=== PATIENT | male | born 1950 | race Caucasian/White ===

== ENCOUNTER 2021-04-09 10:12 | Inpatient (IN) | payer OTHER ==
[~2021-04-09] VITALS: Ht 175.3 cm; Wt 82.2 kg
[2021-04-09] MEDS ORDERED: NITROGLYCERIN 0.4 MG SL TAB SL ONE (11:00)
[2021-04-09] MEDS ORDERED: ASPirin 81 mg TAB PO ONE (11:00)
[2021-04-09] MEDS ORDERED: amLODIPine BESYLATE 5 MG TAB PO ONE (11:00)
[2021-04-09 11:14] LABS: Eosinophils # (auto) 0.2 10 ^3/uL (0-0.8); Monocytes # (auto) 0.7 10 ^3/uL (0-1.3); Neutrophils # (auto) 6.2 10 ^3/uL (1.6-8.6); White Blood Cell 8.4 10^3/uL (4.4-10.8)
[2021-04-09 11:16] LABS: Basophils # (auto) 0 10 ^3/uL (0-0.2); Basophils % (auto) 0.5 % (0.0-2.0); Eosinophils % (auto) 2.1 % (0.0-7.0); Hematocrit 55.4 % (41.0-53.0); Hemoglobin 18.6 g/dL (13.5-17.5); Lymphocytes # (auto) 1.3 10 ^3/uL (0.4-5.4); Lymphocytes % (auto) 14.9 % (10.0-50.0); Mean Corpuscular Hgb Conc. 33.6 g/dL (32.0-36.0); Mean Corpuscular Volume 95.1 fL (80.0-100.0); Monocytes % (auto) 8.6 % (0.0-12.0); Neutrophils % (auto) 73.9 % (37.0-80.0); Nucleated Red Blood Cells % 0.2 %; Platelet Count (auto) 179 10^3/uL (140-450); Red Blood Cells 5.82 10^6/uL (4.5-5.90); Red Cell Distribution Width 13.8 % (11.8-14.3)
[2021-04-09 11:28] LABS: Anion Gap 5 (5-15); Blood Urea Nitrogen 23 mg/dL (7-18); Calcium 8.8 mg/dL (8.5-10.1); Carbon Dioxide 24 mmol/L (21-32); Chloride 111 mmol/L (98-107); Glucose 98 mg/dL (74-106); Potassium 4.1 mmol/L (3.5-5.1); Sodium 140 mmol/L (136-145)
[2021-04-09 11:35] LABS: Alanine Aminotransferase 18 U/L (16-61); Alkaline Phosphatase 80 U/L (45-117); Aspartate Aminotransferase 20 U/L (15-37); BUN/Creatinine Ratio 20.2; Bilirubin, Total 0.6 mg/dL (0.2-1.0); GFR African American 81 mL/min; GFR Non-African American 67 mL/min; Total Protein 8.3 g/dL (6.4-8.2)
[2021-04-09 11:44] LABS: INR 1.19 (0.9-1.15)
[2021-04-09 15:00] LABS: Urine Bacteria NONE SEEN /hpf (None Seen); Urine Blood Negative /uL (Negative); Urine Specific Gravity 1.023 (1.001-1.035); Urine WBC <1 /hpf (0 - 3)
[2021-04-09] MEDS ORDERED: MORPHINE SULF INJ 2 MG/ML SYRINGE 1ML IV PRN ×2 (15:30)
[2021-04-09] MEDS ORDERED: ACETAMINOPHEN 500 MG TAB PO PRN (15:30)
[2021-04-09] MEDS ORDERED: LACTULOSE 20Gm/30ML SOLN PO PRN ×2 (15:30)
[2021-04-09] MEDS ORDERED: traMADol HCL 50 MG TAB PO PRN (15:30)
[2021-04-09] MEDS ORDERED: PROMETHAZINE HCL 25 MG/ML 1ML IV PRN (15:30)
[2021-04-09] MEDS ORDERED: NITROGLYCERIN 0.4 MG SL TAB SL PRN (15:30)
[2021-04-09] MEDS: SODIUM CHLORIDE 0.9% 1,000 ML IV SCH (15:38)
[2021-04-09 16:39] LABS: Alcohol, Urine < 3.0 mg/dL (0-10); Amphetamine Screen, Urine NEGATIVE (NEGATIVE); Barbiturate Scree,Urine NEGATIVE (NEGATIVE); Benzodiazephine Screen, Urine NEGATIVE (NEGATIVE); Cannabinoid Screen, Urine NEGATIVE (NEGATIVE); Cocaine Screen, Urine NEGATIVE (NEGATIVE); Opiate Scree,Urine NEGATIVE (NEGATIVE); Phencyclidine Screen, Urine NEGATIVE (NEGATIVE)
[2021-04-09 17:48] LABS: CRP High Sensitivity 0.08 mg/dL (< 0.3)
[2021-04-09 20:19] VITALS: BP 125/72
[2021-04-09 22:00] VITALS: BP 125/72
[2021-04-09] MEDS: METOPROLOL TARTRATE 25 MG TAB PO SCH ×2 (22:00→22:41)
[2021-04-09] MEDS: ATORVASTATIN 20 MG TAB PO SCH ×2 (22:00→22:41)
[2021-04-09] MEDS ORDERED: THROAT LOZENGES(CEPASTAT) MT PRN (22:30)
[2021-04-09] MEDS ORDERED: METO25TA93 PO (22:39)
[2021-04-09] MEDS ORDERED: NITR0.4S29 SL (22:39)
[2021-04-09] MEDS ORDERED: PRAV20TA3 PO (22:39)
[2021-04-09] MEDS ORDERED: ARTISOL13 EACHEYE (22:39)
[2021-04-09] MEDS ORDERED: FAMO20TA10 PO (22:39)
[2021-04-09] MEDS ORDERED: ACYC-161 PO (22:39)
[2021-04-09] MEDS ORDERED: DICY10CA PO (22:39)
[2021-04-09] MEDS ORDERED: PANT40TA2 PO (22:39)
[2021-04-09] MEDS ORDERED: FAMOTIDINE 20 MG TAB PO ONE (22:45)
[2021-04-10] MEDS: SODIUM CHLORIDE 0.9% 1,000 ML IV SCH (04:50)
[2021-04-10 05:00] VITALS: BP 121/74
[2021-04-10 07:06] LABS: Cholesterol 164 mg/dL (< 200)
[2021-04-10 07:10] LABS: HDL Cholesterol 38 mg/dL (40-59); LDL Cholesterol 108 mg/dL (< 100); Triglycerides 115 mg/dL (< 150)
[2021-04-10 08:00] VITALS: BP 105/69
[2021-04-10 08:15] VITALS: BP 105/69
[2021-04-10] MEDS ORDERED: PANTOPRAZOLE 40 MG TAB PO SCH (10:00)
[2021-04-10] MEDS ORDERED: NITROGLYCERIN 0.2MG/HR TOPICAL PATCH TD SCH (10:00)
[2021-04-10] MEDS ORDERED: ENOXAPARIN SOD 40 MG/0.4 ML SYRINGE SC SCH (10:00)
[2021-04-10] MEDS ORDERED: ASPirin 81 mg TAB PO SCH (10:00)
[2021-04-10] MEDS: METOPROLOL TARTRATE 25 MG TAB PO SCH (10:12)
[2021-04-10 16:59] VITALS: BP 135/74
[2021-04-10 17:00] VITALS: BP 136/72
[2021-04-10] MEDS ORDERED: FAMOTIDINE 20 MG TAB PO SCH (22:00)
== END 2021-04-10 17:40 | disposition home health service (06) | DRG 313 ==
LOC: ER 10:12 → TELE 15:23 → TELE-CENTR 20:16
PROVIDERS: ADMIT Internal Medicine; ATTEND Internal Medicine
DX: R07.89 Other chest pain (principal); K21.9 Gastro-esophageal reflux disease without esophagitis; I45.10 Unspecified right bundle-branch block; Z95.1 Presence of aortocoronary bypass graft; I25.10 Atherosclerotic heart disease of native coronary artery without angina pectoris; F43.10 Post-traumatic stress disorder, unspecified; K58.9 Irritable bowel syndrome, unspecified; Z20.822 Contact with and (suspected) exposure to COVID-19; I10 Essential (primary) hypertension; Z82.49 Family history of ischemic heart disease and other diseases of the circulatory system; Z87.891 Personal history of nicotine dependence; Z98.61 Coronary angioplasty status; B19.20 Unspecified viral hepatitis C without hepatic coma
CPT/HCPCS: 36415; 71045; 80053; 80061; 80307; 81001; 82550; 83880; 84484; 85025; 85379; 85610; 85652; 85730; 86141; 87426; 93005; 96360; G0378

== ENCOUNTER 2021-07-29 16:48 | Emergency (ER) | payer OTHER ==
[~2021-07-29] VITALS: Ht 175.3 cm; Wt 83.9 kg
[~2021-07-29 16:48] MED LIST: ACYC-161 PO; ARTISOL13 EACHEYE; DICY10CA PO; FAMO20TA10 PO; METO25TA93 PO; NITR0.4S29 SL; PANT40TA2 PO; PRAV20TA3 PO
[2021-07-29 18:25] LABS: Basophils # (auto) 0.1 10 ^3/uL (0-0.2); Basophils % (auto) 0.7 % (0.0-2.0); Eosinophils # (auto) 0.2 10 ^3/uL (0-0.8); Hematocrit 52.4 % (41.0-53.0); Hemoglobin 17.7 g/dL (13.5-17.5); Lymphocytes # (auto) 1.6 10 ^3/uL (0.4-5.4); Mean Corpuscular Hgb Conc. 33.8 g/dL (32.0-36.0); Neutrophils # (auto) 6.1 10 ^3/uL (1.6-8.6); Red Cell Distribution Width 13.9 % (11.8-14.3)
[2021-07-29 18:27] LABS: Eosinophils % (auto) 2.1 % (0.0-7.0); Lymphocytes % (auto) 18.2 % (10.0-50.0); Mean Corpuscular Hemoglobin 32.3 pg (28.0-32.0); Mean Corpuscular Volume 95.4 fL (80.0-100.0); Monocytes # (auto) 0.9 10 ^3/uL (0-1.3); Monocytes % (auto) 10.5 % (0.0-12.0); Neutrophils % (auto) 68.5 % (37.0-80.0); Nucleated Red Blood Cells % 0.2 %; Red Blood Cells 5.49 10^6/uL (4.5-5.90); White Blood Cell 8.9 10^3/uL (4.4-10.8)
[2021-07-29 18:45] LABS: Albumin 3.8 g/dL (3.4-5.0); Anion Gap 3 (5-15); Blood Urea Nitrogen 26 mg/dL (7-18); Calcium 8.7 mg/dL (8.5-10.1); Carbon Dioxide 26 mmol/L (21-32); Chloride 113 mmol/L (98-107); Glucose 97 mg/dL (74-106); Magnesium 2.7 mg/dL (1.6-2.6); Potassium 4.6 mmol/L (3.5-5.1); Sodium 142 mmol/L (136-145)
[2021-07-29 18:51] LABS: Alanine Aminotransferase 20 U/L (16-61); Alkaline Phosphatase 87 U/L (45-117); Aspartate Aminotransferase 18 U/L (15-37); BUN/Creatinine Ratio 21.5; Bilirubin, Total 0.2 mg/dL (0.2-1.0); GFR African American 76 mL/min; GFR Non-African American 63 mL/min; Total Protein 8.1 g/dL (6.4-8.2)
[2021-07-29 22:40] VITALS: BP 170/93
== END 2021-07-29 22:37 | disposition home or self-care (01) ==
LOC: ER 16:48
DX: H81.10 Benign paroxysmal vertigo, unspecified ear (principal); I10 Essential (primary) hypertension; E78.5 Hyperlipidemia, unspecified; Z95.1 Presence of aortocoronary bypass graft; Z98.61 Coronary angioplasty status
CPT/HCPCS: 36415; 70450; 80053; 83735; 84484; 85025; 93005

== ENCOUNTER → 2021-09-05 | Outpatient (CLI) | payer OTHER, MEDICARE | END | disposition home or self-care (01) | LOC: LAB 10:51 | PROVIDERS: ATTEND Internal Medicine | DX: I10 Essential (primary) hypertension (principal); E78.5 Hyperlipidemia, unspecified | CPT/HCPCS: 82270 ==

== ENCOUNTER 2021-09-15 19:02 | Emergency (ER) | payer MEDICARE, OTHER ==
[~2021-09-15] VITALS: Ht 175.3 cm; Wt 83.0 kg
[2021-09-15 21:08] VITALS: BP 108/62
[2021-09-15] MEDS ORDERED: NEOMYCIN-BACITRACIN-POLYM UNITDOSE PKG TOP OINT TOP ONE (21:15)
[2021-09-15] MEDS ORDERED: LIDOCAINE 1% HCL (LOCAL ANESTH.) INJ 20ML MDV ID ONE (21:15)
[2021-09-15] MEDS ORDERED: cefTRIAXone SOD 1,000 MG VL IM ONE (21:45)
[2021-09-15] MEDS ORDERED: TETANUS-DIPTH-ACEL PERTUSSIS 0.5ML SYR Tdap IM ONE (22:00)
== END 2021-09-15 22:04 | disposition home or self-care (01) ==
LOC: ER 19:02
DX: S61.215A Laceration without foreign body of left ring finger without damage to nail, initial encounter (principal); I10 Essential (primary) hypertension; E78.5 Hyperlipidemia, unspecified; Z95.1 Presence of aortocoronary bypass graft; Z98.61 Coronary angioplasty status; W26.9XXA Contact with unspecified sharp object(s), initial encounter; Y93.89 Activity, other specified; Y92.89 Other specified places as the place of occurrence of the external cause; Y99.8 Other external cause status
CPT/HCPCS: 12001; 73140; 90471; 90715; 96372; 99284; J0696; J2001

== ENCOUNTER 2021-10-30 18:40 | Inpatient (IN) | payer OTHER ==
[~2021-10-30] VITALS: Ht 175.3 cm; Wt 83.0 kg
[2021-10-30 21:24] LABS: Albumin 3.7 g/dL (3.4-5.0); Calcium 8.4 mg/dL (8.5-10.1); Potassium 4.2 mmol/L (3.5-5.1)
[2021-10-30 21:27] LABS: Basophils # (auto) 0 10 ^3/uL (0-0.2); Basophils % (auto) 0.3 % (0.0-2.0); Eosinophils # (auto) 0.2 10 ^3/uL (0-0.8); Hemoglobin 17.7 g/dL (13.5-17.5); Neutrophils # (auto) 7.7 10 ^3/uL (1.6-8.6); White Blood Cell 10.7 10^3/uL (4.4-10.8)
[2021-10-30 21:28] LABS: Eosinophils % (auto) 1.7 % (0.0-7.0); Hematocrit 52.5 % (41.0-53.0); Lymphocytes # (auto) 1.6 10 ^3/uL (0.4-5.4); Lymphocytes % (auto) 15.3 % (10.0-50.0); Mean Corpuscular Hemoglobin 31.6 pg (28.0-32.0); Mean Corpuscular Hgb Conc. 33.8 g/dL (32.0-36.0); Mean Corpuscular Volume 93.7 fL (80.0-100.0); Monocytes # (auto) 1.1 10 ^3/uL (0-1.3); Monocytes % (auto) 10.2 % (0.0-12.0); Neutrophils % (auto) 72.5 % (37.0-80.0); Nucleated Red Blood Cells % 0.1 %; Red Cell Distribution Width 14.1 % (11.8-14.3)
[2021-10-30 21:36] LABS: BUN/Creatinine Ratio 22.6; Bilirubin, Total 0.4 mg/dL (0.2-1.0); Total Protein 8.4 g/dL (6.4-8.2)
[2021-10-30] MEDS ORDERED: ASPirin 81 mg TAB PO ONE (21:45)
[2021-10-30] MEDS ORDERED: NITROGLYCERIN 0.2MG/HR TOPICAL PATCH TD ONE (21:45)
[2021-10-31 01:24] LABS: INR 1.02 (0.9-1.15); Partial Thromboplastin Time 29.1 sec (23.6-33.0)
[2021-10-31] MEDS ORDERED: NITROGLYCERIN 0.4 MG SL TAB SL PRN (02:45)
[2021-10-31] MEDS ORDERED: MORPHINE SULFATE INJECTION 2 MG/ML SYRG IV PRN (02:45)
[2021-10-31] MEDS ORDERED: ONDANSETRON HCL 4 MG/2 ML VIAL IV PRN (02:45)
[2021-10-31] MEDS ORDERED: ACETAMINOPHEN 325 MG TAB PO PRN (02:45)
[2021-10-31 09:10] VITALS: BP 130/86
[2021-10-31 09:28] VITALS: BP 130/86
[2021-10-31] MEDS: METOPROLOL SUCCINATE XL 50 MG TAB PO SCH (09:51)
[2021-10-31] MEDS: ASPirin 81 mg TAB PO SCH (09:51)
[2021-10-31] MEDS: ENOXAPARIN SOD 40 MG/0.4 ML SYRINGE SC SCH (09:51)
[2021-10-31] MEDS: PANTOPRAZOLE 40 MG TAB PO SCH (09:51)
[2021-10-31] MEDS ORDERED: AMLO-489 PO (11:38)
[2021-10-31] MEDS ORDERED: BENA10TA15 PO (11:38)
[2021-10-31 13:07] VITALS: BP 125/96
[2021-10-31 16:39] VITALS: BP 119/82
[2021-10-31] MEDS: ATORVASTATIN 20 MG TAB PO SCH (21:05)
[2021-10-31] MEDS: TEMAZEPAM 15 MG CAP PO PRN (21:41)
[2021-10-31 22:00] VITALS: BP 102/67
[2021-11-01 05:00] VITALS: BP 118/76
[2021-11-01 06:08] LABS: Basophils # (auto) 0 10 ^3/uL (0-0.2); Basophils % (auto) 0.4 % (0.0-2.0); Eosinophils # (auto) 0.2 10 ^3/uL (0-0.8); Eosinophils % (auto) 2.8 % (0.0-7.0); Lymphocytes # (auto) 1.7 10 ^3/uL (0.4-5.4); Lymphocytes % (auto) 21.3 % (10.0-50.0); Mean Corpuscular Hemoglobin 32.2 pg (28.0-32.0); Mean Corpuscular Hgb Conc. 33.9 g/dL (32.0-36.0); Monocytes # (auto) 0.8 10 ^3/uL (0-1.3); Monocytes % (auto) 10.7 % (0.0-12.0); Neutrophils # (auto) 5.1 10 ^3/uL (1.6-8.6); Neutrophils % (auto) 64.8 % (37.0-80.0); Nucleated Red Blood Cells % 0.1 %; Red Blood Cells 5.26 10^6/uL (4.5-5.90); Red Cell Distribution Width 14.4 % (11.8-14.3); White Blood Cell 7.9 10^3/uL (4.4-10.8)
[2021-11-01 06:21] LABS: Calcium 8.6 mg/dL (8.5-10.1); Potassium 4.5 mmol/L (3.5-5.1)
[2021-11-01 06:22] LABS: BUN/Creatinine Ratio 23.3
[2021-11-01 06:33] LABS: INR 1.05 (0.9-1.15); Partial Thromboplastin Time 28.5 sec (23.6-33.0)
[2021-11-01 07:08] LABS: Urine Bacteria NONE SEEN /hpf (None Seen); Urine Blood Negative /uL (Negative); Urine Specific Gravity 1.024 (1.001-1.035); Urine WBC <1 /hpf (0 - 3)
[2021-11-01 09:21] VITALS: BP 113/75
[2021-11-01] MEDS: METOPROLOL SUCCINATE XL 50 MG TAB PO SCH (10:00)
[2021-11-01] MEDS: ENOXAPARIN SOD 40 MG/0.4 ML SYRINGE SC SCH (10:00)
[2021-11-01] MEDS: ASPirin 81 mg TAB PO SCH (10:00)
[2021-11-01] MEDS: PANTOPRAZOLE 40 MG TAB PO SCH (10:00)
[2021-11-01 13:30] VITALS: BP 131/77
[2021-11-01] MEDS ORDERED: LIDOCAINE 2%HCL (LOCAL ANESTH.) INJ 20ML MDV ONE (14:37)
[2021-11-01] MEDS ORDERED: IODIXANOL 320MG/ML 100ML BTL IV ONE ×2 (14:37→15:52)
[2021-11-01] MEDS ORDERED: HEPARIN SODIUM (PORCINE) 5000 UNITS/ML 1ML VIAL ONE (14:55)
[2021-11-01] MEDS ORDERED: ANGIOMAX 250 MG VIAL IV ONE (14:55)
[2021-11-01] MEDS ORDERED: VERAPAMIL 2.5MG/ML INJ 2ML VIAL IV ONE (14:55)
[2021-11-01] MEDS ORDERED: SODIUM CHL 0.9% 0 ML ONE (14:56)
[2021-11-01] MEDS ORDERED: fentaNYL CITRATE 100 MCG/2 ML VL ONE (14:56)
[2021-11-01] MEDS ORDERED: MIDAZOLAM HCL 2MG/2ML 2ml VIAL (1mg/ml) ONE (14:56)
[2021-11-01] MEDS: TEMAZEPAM 15 MG CAP PO PRN (21:28)
[2021-11-01] MEDS: ATORVASTATIN 20 MG TAB PO SCH (21:28)
[2021-11-01] MEDS: SODIUM CHLOR 0.9% PF (SALINE LOCK) 10ML VIAL/SYR IV SCH (21:29)
[2021-11-01 22:00] VITALS: BP 145/81
[2021-11-02 05:00] VITALS: BP 123/84
[2021-11-02 09:28] VITALS: BP 114/68
[2021-11-02] MEDS: PANTOPRAZOLE 40 MG TAB PO SCH (10:07)
[2021-11-02] MEDS: ENOXAPARIN SOD 40 MG/0.4 ML SYRINGE SC SCH (10:07)
[2021-11-02] MEDS: METOPROLOL SUCCINATE XL 50 MG TAB PO SCH (10:07)
[2021-11-02] MEDS: SODIUM CHLOR 0.9% PF (SALINE LOCK) 10ML VIAL/SYR IV SCH ×2 (10:07→16:11)
[2021-11-02] MEDS: ASPirin 81 mg TAB PO SCH (10:07)
[2021-11-02] MEDS ORDERED: RANO500T2 PO (11:50)
[2021-11-02] MEDS ORDERED: METO-6 PO (11:50)
[2021-11-02 12:35] VITALS: BP 126/81
[2021-11-02 18:21] VITALS: BP 126/81
== END 2021-11-02 20:21 | disposition home or self-care (01) | DRG 287 ==
LOC: ER 18:46 → TELE 10-31 02:36 → TELE-CENTR 10-31 09:09
PROVIDERS: ADMIT Nurse Practitioner; ATTEND Internal Medicine
PROC: 4A023N7 Measurement of Cardiac Sampling and Pressure, Left Heart, Percutaneous Approach (ICD-10-PCS; principal; 2021-11-01)
PROC: B2181ZZ Fluoroscopy of Left Internal Mammary Bypass Graft using Low Osmolar Contrast (ICD-10-PCS; 2021-11-01)
PROC: B2151ZZ Fluoroscopy of Left Heart using Low Osmolar Contrast (ICD-10-PCS; 2021-11-01)
PROC: B2111ZZ Fluoroscopy of Multiple Coronary Arteries using Low Osmolar Contrast (ICD-10-PCS; 2021-11-01)
PROC: 4A033BC Measurement of Arterial Pressure, Coronary, Percutaneous Approach (ICD-10-PCS; 2021-11-01)
PROC: B2131ZZ Fluoroscopy of Multiple Coronary Artery Bypass Grafts using Low Osmolar Contrast (ICD-10-PCS; 2021-11-01)
DX: I25.110 Atherosclerotic heart disease of native coronary artery with unstable angina pectoris (principal); I24.9 Acute ischemic heart disease, unspecified; J98.11 Atelectasis; I10 Essential (primary) hypertension; E78.5 Hyperlipidemia, unspecified; Z20.822 Contact with and (suspected) exposure to COVID-19; I45.10 Unspecified right bundle-branch block; K21.9 Gastro-esophageal reflux disease without esophagitis; Z86.718 Personal history of other venous thrombosis and embolism; Z95.5 Presence of coronary angioplasty implant and graft; Z82.49 Family history of ischemic heart disease and other diseases of the circulatory system; Z83.42 Family history of familial hypercholesterolemia; K44.9 Diaphragmatic hernia without obstruction or gangrene
CPT/HCPCS: 36415; 71045; 80048; 80053; 81001; 83735; 83880; 84484; 85025; 85379; 85610; 85730; 87426; 93005; 93306; 93459; 93571; G0378; J2250; Q9967

== ENCOUNTER 2021-12-01 14:50 | Emergency (ER) | payer OTHER ==
[~2021-12-01] VITALS: Ht 175.3 cm; Wt 83.9 kg
[~2021-12-01 14:50] MED LIST changes: -ACYC-161 PO; -ARTISOL13 EACHEYE; +BENA10TA15 PO; -DICY10CA PO; -FAMO20TA10 PO; +METO-6 PO; -METO25TA93 PO; -PANT40TA2 PO; +RANO500T2 PO
[2021-12-01 17:50] VITALS: BP 128/80
== END 2021-12-01 17:55 | disposition home or self-care (01) ==
LOC: ER 14:50
DX: I10 Essential (primary) hypertension (principal); E78.5 Hyperlipidemia, unspecified; Z86.73 Personal history of transient ischemic attack (TIA), and cerebral infarction without residual deficits; Z95.1 Presence of aortocoronary bypass graft; Z98.61 Coronary angioplasty status; Z91.018 Allergy to other foods

== ENCOUNTER 2021-12-31 12:32 | Emergency (ER) | payer OTHER ==
[~2021-12-31] VITALS: Ht 175.3 cm; Wt 83.9 kg
[2021-12-31 14:21] LABS: Basophils # (auto) 0 10 ^3/uL (0-0.2); Basophils % (auto) 0.4 % (0.0-2.0); Eosinophils # (auto) 0.1 10 ^3/uL (0-0.8); Eosinophils % (auto) 0.6 % (0.0-7.0); Hematocrit 49.7 % (41.0-53.0); Lymphocytes # (auto) 1.1 10 ^3/uL (0.4-5.4); Lymphocytes % (auto) 10.4 % (10.0-50.0); Mean Corpuscular Hemoglobin 32.1 pg (28.0-32.0); Mean Corpuscular Hgb Conc. 34.1 g/dL (32.0-36.0); Mean Corpuscular Volume 94.1 fL (80.0-100.0); Monocytes # (auto) 0.7 10 ^3/uL (0-1.3); Monocytes % (auto) 6.7 % (0.0-12.0); Neutrophils % (auto) 81.9 % (37.0-80.0); Nucleated Red Blood Cells % 0.2 %; Red Blood Cells 5.29 10^6/uL (4.5-5.90); Red Cell Distribution Width 14.1 % (11.8-14.3)
[2021-12-31 14:37] LABS: Albumin 3.7 g/dL (3.4-5.0); Calcium 8.9 mg/dL (8.5-10.1); Potassium 4.5 mmol/L (3.5-5.1)
[2021-12-31 14:44] LABS: BUN/Creatinine Ratio 20.4; Bilirubin, Total 0.6 mg/dL (0.2-1.0); Total Protein 8.1 g/dL (6.4-8.2)
[2021-12-31] MEDS ORDERED: MECLIZINE HCL 25 MG TAB PO ONE (18:30)
[2021-12-31] MEDS ORDERED: SODIUM CHLORIDE 0.9% 1,000 ML IV ONE (18:30)
[2021-12-31 20:30] LABS: Urine Bacteria NONE SEEN /hpf (None Seen); Urine Blood Negative /uL (Negative); Urine Mucus FEW (None Seen); Urine Specific Gravity 1.027 (1.001-1.035); Urine WBC 14 /hpf (0 - 3)
[2021-12-31 21:24] VITALS: BP 135/76
[2021-12-31] MEDS ORDERED: LEVO750T64 PO (21:39)
[2021-12-31] MEDS ORDERED: MECL1TAB42 PO (21:39)
[2021-12-31] MEDS ORDERED: levoFLOXacin 250 MG TAB PO ONE (21:45)
== END 2021-12-31 21:48 | disposition home or self-care (01) ==
LOC: ER 12:32
DX: N39.0 Urinary tract infection, site not specified (principal); H81.393 Other peripheral vertigo, bilateral; I10 Essential (primary) hypertension; E78.5 Hyperlipidemia, unspecified; Z95.1 Presence of aortocoronary bypass graft; Z98.61 Coronary angioplasty status; Z91.018 Allergy to other foods; Z20.822 Contact with and (suspected) exposure to COVID-19
CPT/HCPCS: 36415; 80053; 81001; 84484; 85025; 87086; 87426; 93005; 96360; 99284; J7030; J8597

== ENCOUNTER → 2022-01-04 | Outpatient (CLI) | payer OTHER, MEDICARE ==
[~2022-01-04] MED LIST changes: +LEVO750T64 PO; +MECL1TAB42 PO
[2022-01-04 09:44] LABS: Albumin 3.3 g/dL (3.4-5.0); Bilirubin, Direct 0.1 mg/dL (0-0.2); Bilirubin, Total 0.4 mg/dL (0.2-1.0); Total Protein 7.6 g/dL (6.4-8.2)
== END | disposition home or self-care (01) ==
LOC: LAB 07:15
PROVIDERS: ATTEND Internal Medicine
DX: Z00.00 Encounter for general adult medical examination without abnormal findings (principal); E78.5 Hyperlipidemia, unspecified; I10 Essential (primary) hypertension
CPT/HCPCS: 36415; 80061; 80076; 84153; 84154

== ENCOUNTER 2022-02-01 17:00 | Emergency (ER) | payer MEDICARE, OTHER ==
[~2022-02-01] VITALS: Ht 182.9 cm; Wt 77.1 kg
[~2022-02-01 17:00] MED LIST changes: -LEVO750T64 PO; -MECL1TAB42 PO
[2022-02-01] MEDS ORDERED: MECLIZINE HCL 25 MG TAB PO ONE (17:30)
[2022-02-01] MEDS ORDERED: MECL1TAB42 PO (17:35)
[2022-02-01 18:23] LABS: Basophils # (auto) 0 10 ^3/uL (0-0.2); Basophils % (auto) 0.2 % (0.0-2.0); Eosinophils # (auto) 0 10 ^3/uL (0-0.8); Eosinophils % (auto) 0.1 % (0.0-7.0); Hematocrit 48.5 % (41.0-53.0); Hemoglobin 16.4 g/dL (13.5-17.5); Lymphocytes # (auto) 0.6 10 ^3/uL (0.4-5.4); Lymphocytes % (auto) 4.9 % (10.0-50.0); Mean Corpuscular Hemoglobin 32.1 pg (28.0-32.0); Mean Corpuscular Hgb Conc. 33.8 g/dL (32.0-36.0); Monocytes # (auto) 0.5 10 ^3/uL (0-1.3); Monocytes % (auto) 3.6 % (0.0-12.0); Neutrophils # (auto) 11.6 10 ^3/uL (1.6-8.6); Neutrophils % (auto) 91.2 % (37.0-80.0); Nucleated Red Blood Cells % 0.1 %; Red Cell Distribution Width 14.6 % (11.8-14.3); White Blood Cell 12.8 10^3/uL (4.4-10.8)
[2022-02-01] MEDS ORDERED: SODIUM CHLORIDE 0.9% 1,000 ML IV ONE (19:00)
[2022-02-01 19:03] LABS: Alanine Aminotransferase 15 U/L (16-61); Alkaline Phosphatase 86 U/L (45-117); Anion Gap 8 (5-15); Aspartate Aminotransferase 27 U/L (15-37); Bilirubin, Total 0.6 mg/dL (0.2-1.0); Blood Urea Nitrogen 25 mg/dL (7-18); Calcium 8.2 mg/dL (8.5-10.1); Carbon Dioxide 19 mmol/L (21-32); Chloride 114 mmol/L (98-107); GFR African American 90 mL/min; GFR Non-African American 74 mL/min; Glucose 90 mg/dL (74-106); Potassium 4.2 mmol/L (3.5-5.1); Sodium 141 mmol/L (136-145); Total Protein 7.6 g/dL (6.4-8.2)
[2022-02-01 19:04] LABS: Albumin 3.5 g/dL (3.4-5.0)
[2022-02-01 20:55] VITALS: BP 140/78
== END 2022-02-01 21:16 | disposition home or self-care (01) ==
LOC: EDBD 17:00 → ER 17:00
DX: H81.10 Benign paroxysmal vertigo, unspecified ear (principal); E78.5 Hyperlipidemia, unspecified; I10 Essential (primary) hypertension
CPT/HCPCS: 36415; 70450; 80053; 84484; 85025; 93005; 96360; 99285; J7030; J8597

== ENCOUNTER 2022-05-24 06:07 | Observation (INO) | payer OTHER ==
[2022-05-21 10:02] LABS: Basophils # (auto) 0 10 ^3/uL (0-0.2); Basophils % (auto) 0.6 % (0.0-2.0); Eosinophils # (auto) 0.2 10 ^3/uL (0-0.8); Eosinophils % (auto) 2.4 % (0.0-7.0); Hematocrit 49.2 % (41.0-53.0); Hemoglobin 16.8 g/dL (13.5-17.5); Lymphocytes # (auto) 1.6 10 ^3/uL (0.4-5.4); Lymphocytes % (auto) 18.2 % (10.0-50.0); Mean Corpuscular Hemoglobin 32.3 pg (28.0-32.0); Mean Corpuscular Hgb Conc. 34.1 g/dL (32.0-36.0); Mean Corpuscular Volume 94.8 fL (80.0-100.0); Monocytes # (auto) 0.8 10 ^3/uL (0-1.3); Monocytes % (auto) 9.7 % (0.0-12.0); Neutrophils # (auto) 5.9 10 ^3/uL (1.6-8.6); Neutrophils % (auto) 69.1 % (37.0-80.0); Nucleated Red Blood Cells % 0.1 %; Red Blood Cells 5.18 10^6/uL (4.5-5.90); Red Cell Distribution Width 14.6 % (11.8-14.3); White Blood Cell 8.5 10^3/uL (4.4-10.8)
[2022-05-21 10:21] LABS: Urine Bacteria NONE SEEN /hpf (None Seen); Urine Blood Negative /uL (Negative); Urine Mucus FEW (None Seen); Urine WBC <1 /hpf (0 - 3)
[2022-05-21 10:29] LABS: Albumin 3.8 g/dL (3.4-5.0); Calcium 9.2 mg/dL (8.5-10.1); Potassium 4.5 mmol/L (3.5-5.1)
[2022-05-21 10:32] LABS: BUN/Creatinine Ratio 19.2; Bilirubin, Total 0.4 mg/dL (0.2-1.0); Total Protein 8.1 g/dL (6.4-8.2)
[2022-05-21 10:37] LABS: INR 1.06 (0.9-1.15); Partial Thromboplastin Time 29.6 sec (23.6-33.0)
[~2022-05-24] VITALS: Ht 154.3 cm; Wt 81.2 kg
[~2022-05-24 06:07] MED LIST changes: +ARTISOL13 EACHEYE; +ASPI1TAB20 PO; -BENA10TA15 PO; +CETI10TA2 PO; +DICY20TA PO; +EZET10TA22 PO; +ISOS1TAB28 PO; +MECL1TAB42 PO; +MELA3TAB27 PO; +PANT40TA2 PO; +TRAZ100T3 PO
[2022-05-24] MEDS ORDERED: CIPROFLOXACIN 400MG/200ML 200 ML IV ONE (06:44)
[2022-05-24] MEDS ORDERED: MEPERIDINE HCL (50 MG/ML) 1 ML VIAL ONE (07:40)
[2022-05-24] MEDS ORDERED: fentaNYL CITRATE 100 MCG/2 ML VL ONE (07:40)
[2022-05-24] MEDS ORDERED: MIDAZOLAM HCL 2MG/2ML 2ml VIAL (1mg/ml) ONE (07:40)
[2022-05-24] MEDS ORDERED: NITROGLYCERIN 0.4 MG SL TAB SL PRN (07:45)
[2022-05-24] MEDS ORDERED: MORPHINE SULFATE INJ 2 MG/ml SYRG IV PRN (07:45)
[2022-05-24] MEDS ORDERED: PROPOFOL 10 MG/ML 20 ML IV ONE (08:15)
[2022-05-24] MEDS ORDERED: DexAMETHasone SOD PHOS 10MG/1ML VIAL INJ ONE (08:15)
[2022-05-24] MEDS ORDERED: MIDAZOLAM HCL 2MG/2ML 2ml VIAL (1mg/ml) IV PRN (08:30)
[2022-05-24] MEDS ORDERED: HYDROmorphone HCL 2 MG/ML VL/or syr IV PRN (08:30)
[2022-05-24] MEDS ORDERED: ePHEDrine SULFATE 50 MG/ML AMP IV PRN (08:30)
[2022-05-24] MEDS ORDERED: LABETALOL HCL 5 MG/ML 4ML SYRINGE IV PRN (08:30)
[2022-05-24] MEDS ORDERED: MORPHINE SULFATE 4 MG/ML SYR/VIAL IV PRN (08:30)
[2022-05-24] MEDS ORDERED: ONDANSETRON HCL 4 MG/2 ML VIAL IV PRN (08:30)
[2022-05-24 17:10] VITALS: BP 105/43
[2022-05-24 20:00] VITALS: BP 140/89
[2022-05-24 22:00] VITALS: BP 140/89
[2022-05-25 05:00] VITALS: BP 141/79
[2022-05-25 08:54] VITALS: BP 142/84
== END 2022-05-25 11:15 | disposition still patient (30) ==
LOC: SUR 06:07 → OVERFLOW 10:46 → WEST WING 13:42
PROVIDERS: ADMIT Urology; ATTEND Internal Medicine Pulmonary Disease
DX: R97.20 Elevated prostate specific antigen [PSA] (principal); Z20.822 Contact with and (suspected) exposure to COVID-19; I48.91 Unspecified atrial fibrillation; I10 Essential (primary) hypertension; E78.5 Hyperlipidemia, unspecified; I25.10 Atherosclerotic heart disease of native coronary artery without angina pectoris; F32.A Depression, unspecified; Z79.899 Other long term (current) drug therapy
CPT/HCPCS: 36415; 55700; 76942; 80053; 81001; 85025; 85610; 85730; 86850; 86900; 86901; G0378; J0744; J1100; J2175; J2250; J2704; J3010; U0003

== ENCOUNTER → 2022-06-26 | Outpatient (CLI) | payer OTHER ==
[2022-06-26 12:53] LABS: Calcium 8.9 mg/dL (8.5-10.1); Potassium 4.4 mmol/L (3.5-5.1)
== END | disposition home or self-care (01) ==
LOC: LAB 11:53
PROVIDERS: ATTEND Internal Medicine
DX: I10 Essential (primary) hypertension (principal)
CPT/HCPCS: 36415; 80048; 84153; 84154

== ENCOUNTER → 2022-09-26 | Outpatient (CLI) | payer OTHER ==
[2022-09-26 07:39] LABS: Eosinophils # (auto) 0.2 10 ^3/uL (0-0.8); Mean Corpuscular Hemoglobin 32.4 pg (28.0-32.0); Monocytes # (auto) 0.9 10 ^3/uL (0-1.3); Neutrophils # (auto) 5.5 10 ^3/uL (1.6-8.6); White Blood Cell 7.7 10^3/uL (4.4-10.8)
[2022-09-26 07:41] LABS: Basophils # (auto) 0.1 10 ^3/uL (0-0.2); Basophils % (auto) 0.7 % (0.0-2.0); Eosinophils % (auto) 3.1 % (0.0-7.0); Hematocrit 51.4 % (41.0-53.0); Hemoglobin 17.6 g/dL (13.5-17.5); Lymphocytes # (auto) 1.1 10 ^3/uL (0.4-5.4); Lymphocytes % (auto) 13.7 % (10.0-50.0); Mean Corpuscular Hgb Conc. 34.3 g/dL (32.0-36.0); Mean Corpuscular Volume 94.5 fL (80.0-100.0); Monocytes % (auto) 11.6 % (0.0-12.0); Neutrophils % (auto) 70.9 % (37.0-80.0); Red Blood Cells 5.44 10^6/uL (4.5-5.90)
[2022-09-26 08:04] LABS: Albumin 3.5 g/dL (3.4-5.0); BUN/Creatinine Ratio 18.3; Calcium 8.4 mg/dL (8.5-10.1); Potassium 4.4 mmol/L (3.5-5.1)
[2022-09-26 08:07] LABS: Bilirubin, Total 0.5 mg/dL (0.2-1.0); Total Protein 7.6 g/dL (6.4-8.2)
== END | disposition home or self-care (01) ==
LOC: LAB 07:13
PROVIDERS: ATTEND Internal Medicine
DX: Z12.11 Encounter for screening for malignant neoplasm of colon (principal); E78.5 Hyperlipidemia, unspecified
CPT/HCPCS: 36415; 80053; 82270; 85025

== ENCOUNTER → 2022-11-07 | Outpatient (CLI) | payer OTHER | END | disposition home or self-care (01) | LOC: LAB 06:51 | PROVIDERS: ATTEND Urology | DX: C61 Malignant neoplasm of prostate (principal) | CPT/HCPCS: 84153 ==

== ENCOUNTER → 2023-01-18 | Outpatient (CLI) | payer OTHER | END | disposition home or self-care (01) | LOC: LAB 08:21 | PROVIDERS: ATTEND Urology | DX: R35.1 Nocturia (principal); R30.0 Dysuria | CPT/HCPCS: 84153 ==

== ENCOUNTER 2023-03-29 13:49 | Emergency (ER) | payer OTHER ==
[~2023-03-29] VITALS: Ht 175.3 cm; Wt 90.1 kg
[2023-03-29] MEDS ORDERED: SODIUM CHLORIDE 0.9% 1,000 ML IV ONE (16:30)
[2023-03-29] MEDS ORDERED: KETOROLAC TROMETH 30 MG/ML 1ML VIAL IV ONE (17:00)
[2023-03-29 17:48] VITALS: BP 115/72
== END 2023-03-29 17:59 | disposition home or self-care (01) ==
LOC: ER 13:49
DX: G89.29 Other chronic pain (principal); M54.59 Other low back pain; I95.9 Hypotension, unspecified; I25.10 Atherosclerotic heart disease of native coronary artery without angina pectoris; E78.5 Hyperlipidemia, unspecified; Z79.899 Other long term (current) drug therapy; Z91.018 Allergy to other foods; Z79.82 Long term (current) use of aspirin; Z98.890 Other specified postprocedural states
CPT/HCPCS: 72131; 96361; 96374; 99285; J1885; J7030

== ENCOUNTER 2023-04-02 06:55 | Inpatient (IN) | payer OTHER ==
[~2023-04-02] VITALS: Ht 175.3 cm; Wt 85.0 kg
[2023-04-02] MEDS ORDERED: ASPirin 325 MG TAB PO ONE (07:00)
[2023-04-02 07:23] LABS: Basophils # (auto) 0 10 ^3/uL (0-0.2); Basophils % (auto) 0.3 % (0.0-2.0); Eosinophils # (auto) 0.2 10 ^3/uL (0-0.8); Eosinophils % (auto) 2.9 % (0.0-7.0); Hematocrit 48.8 % (41.0-53.0); Hemoglobin 16.8 g/dL (13.5-17.5); Lymphocytes # (auto) 0.9 10 ^3/uL (0.4-5.4); Lymphocytes % (auto) 11.7 % (10.0-50.0); Mean Corpuscular Hemoglobin 33.5 pg (28.0-32.0); Mean Corpuscular Hgb Conc. 34.5 g/dL (32.0-36.0); Mean Corpuscular Volume 97.1 fL (80.0-100.0); Monocytes # (auto) 0.7 10 ^3/uL (0-1.3); Monocytes % (auto) 9.2 % (0.0-12.0); Neutrophils % (auto) 75.9 % (37.0-80.0); Nucleated Red Blood Cells % 0.1 %; Red Blood Cells 5.02 10^6/uL (4.5-5.90); Red Cell Distribution Width 13.3 % (11.8-14.3); White Blood Cell 7.9 10^3/uL (4.4-10.8)
[2023-04-02 07:39] LABS: Potassium 3.7 mmol/L (3.5-5.1)
[2023-04-02 07:47] LABS: Albumin 3.8 g/dL (3.4-5.0); BUN/Creatinine Ratio 22.7 (10.0-20.0); Bilirubin, Total 0.4 mg/dL (0.2-1.0); Calcium 8.5 mg/dL (8.5-10.1); Total Protein 7.1 g/dL (6.4-8.2)
[2023-04-02] MEDS ORDERED: ENOXAPARIN SOD 40 MG/0.4 ML SYRINGE SC ONE (10:00)
[2023-04-02] MEDS ORDERED: hydrALAZINE HCL 20 MG/ML VL IV PRN (10:00)
[2023-04-02] MEDS ORDERED: PANTOPRAZOLE 40 MG/10 ML VIAL INJ IV ONE (10:00)
[2023-04-02] MEDS ORDERED: MORPHINE SULFATE INJ 2 MG/ml SYRG IV PRN (10:00)
[2023-04-02] MEDS ORDERED: PATIENTS OWN MEDICATION (Isosorbide Mononitrate (Isosorbide Mononitrate Er) 30 MG) PO SCH (10:00)
[2023-04-02] MEDS ORDERED: NITROGLYCERIN 0.4 MG SL TAB SL PRN (10:00)
[2023-04-02] MEDS ORDERED: ACETAMINOPHEN 325 MG TAB PO PRN (10:00)
[2023-04-02 11:14] LABS: Magnesium 2.3 mg/dL (1.6-2.6)
[2023-04-02 11:15] LABS: Partial Thromboplastin Time 30.1 sec (24.6-33.4)
[2023-04-02] MEDS: LISINOPRIL 5 MG TAB PO SCH (12:57)
[2023-04-02] MEDS: RANOLAZINE ER 500 MG TAB PO SCH ×2 (12:57→22:55)
[2023-04-02] MEDS: METOPROLOL SUCCINATE XL 50 MG TAB PO SCH (12:57)
[2023-04-02] MEDS: ISOSORBIDE MONONITRATE ER 60 MG TAB PO SCH (12:58)
[2023-04-02] MEDS: HYDROcodone-ACET 7.5/325MG TAB PO PRN (21:53)
[2023-04-02] MEDS ORDERED: PRAVASTATIN SODIUM 20 MG TAB PO SCH (22:00)
[2023-04-02 22:33] LABS: Urine Bacteria NONE SEEN /hpf (None Seen); Urine Blood Negative /uL (Negative); Urine Hyaline Cast FEW /lpf (0 - 2); Urine Mucus FEW (None Seen); Urine Specific Gravity 1.024 (1.001-1.035); Urine WBC 2 /hpf (0 - 3)
[2023-04-03] VITALS: BP 129/70
[2023-04-03] MEDS ORDERED: MELATONIN 5 MG TAB PO ONE (01:00)
[2023-04-03 05:00] VITALS: BP 136/88
[2023-04-03 06:00] LABS: Basophils # (auto) 0 10 ^3/uL (0-0.2); Basophils % (auto) 0.3 % (0.0-2.0); Eosinophils # (auto) 0.2 10 ^3/uL (0-0.8); Eosinophils % (auto) 3.2 % (0.0-7.0); Hematocrit 47.6 % (41.0-53.0); Hemoglobin 16.7 g/dL (13.5-17.5); Lymphocytes # (auto) 1.1 10 ^3/uL (0.4-5.4); Lymphocytes % (auto) 15.4 % (10.0-50.0); Mean Corpuscular Hemoglobin 33.8 pg (28.0-32.0); Mean Corpuscular Hgb Conc. 35.1 g/dL (32.0-36.0); Mean Corpuscular Volume 96.4 fL (80.0-100.0); Monocytes # (auto) 0.8 10 ^3/uL (0-1.3); Monocytes % (auto) 11.7 % (0.0-12.0); Neutrophils # (auto) 4.8 10 ^3/uL (1.6-8.6); Neutrophils % (auto) 69.4 % (37.0-80.0); Nucleated Red Blood Cells % 0.2 %; Red Blood Cells 4.94 10^6/uL (4.5-5.90); Red Cell Distribution Width 13.6 % (11.8-14.3)
[2023-04-03 06:06] LABS: Albumin 3.2 g/dL (3.4-5.0); Calcium 8.2 mg/dL (8.5-10.1); Potassium 4.1 mmol/L (3.5-5.1)
[2023-04-03 06:13] LABS: BUN/Creatinine Ratio 19.7 (10.0-20.0); Bilirubin, Total 0.5 mg/dL (0.2-1.0); Total Protein 6.7 g/dL (6.4-8.2)
[2023-04-03] MEDS ORDERED: ADENOSINE 71 MG in GIVE UN-DILUTED 0 ML IV STA (08:02)
[2023-04-03 08:50] VITALS: BP 141/85
[2023-04-03 09:00] VITALS: BP 134/86
[2023-04-03] MEDS: HYDROcodone-ACET 7.5/325MG TAB PO PRN (09:50)
[2023-04-03] MEDS: RANOLAZINE ER 500 MG TAB PO SCH (09:50)
[2023-04-03] MEDS: METOPROLOL SUCCINATE XL 50 MG TAB PO SCH (10:00)
[2023-04-03] MEDS ORDERED: PANTOPRAZOLE 40 MG/10 ML VIAL INJ IV SCH (10:00)
[2023-04-03] MEDS ORDERED: Ezetimibe (Zetia) 10 MG TAB PO SCH (10:00)
[2023-04-03] MEDS ORDERED: ENOXAPARIN SOD 40 MG/0.4 ML SYRINGE SC SCH (10:00)
[2023-04-03] MEDS ORDERED: ASPirin-EC 81 mg tab PO SCH (10:00)
[2023-04-03] MEDS ORDERED: SODIUM CHLORIDE 0.9% 500 ML IV ONE (10:00)
[2023-04-03] MEDS: ISOSORBIDE MONONITRATE ER 60 MG TAB PO SCH (10:00)
[2023-04-03] MEDS: LISINOPRIL 5 MG TAB PO SCH (10:01)
[2023-04-03] MEDS ORDERED: METO25TA93 PO (10:21)
[2023-04-03 13:00] VITALS: BP 116/70
[2023-04-03 14:18] VITALS: BP 134/86
[2023-04-03] MEDS ORDERED: MELATONIN 5 MG TAB PO SCH (22:00)
== END 2023-04-03 15:10 | disposition home or self-care (01) | DRG 313 ==
LOC: ER 06:55 → TELE 09:56 → TELE-CENTR 23:11
PROVIDERS: ADMIT Nurse Practitioner Family; ATTEND Internal Medicine
DX: R07.9 Chest pain, unspecified (principal); N17.9 Acute kidney failure, unspecified; E78.5 Hyperlipidemia, unspecified; I12.9 Hypertensive chronic kidney disease with stage 1 through stage 4 chronic kidney disease, or unspecified chronic kidney disease; E66.01 Morbid (severe) obesity due to excess calories; K21.9 Gastro-esophageal reflux disease without esophagitis; I25.10 Atherosclerotic heart disease of native coronary artery without angina pectoris; N18.9 Chronic kidney disease, unspecified; Z82.49 Family history of ischemic heart disease and other diseases of the circulatory system; Z95.1 Presence of aortocoronary bypass graft; Z79.82 Long term (current) use of aspirin; Z68.27 Body mass index [BMI] 27.0-27.9, adult; Z91.018 Allergy to other foods
CPT/HCPCS: 36415; 71045; 78452; 80053; 80061; 81001; 83036; 83735; 83880; 84443; 84484; 85025; 85379; 85610; 85730; 93005; 93017; 93306; C9113; G0378; J0153

== ENCOUNTER → 2023-04-16 | Outpatient (CLI) | payer OTHER ==
[~2023-04-16] MED LIST changes: -METO-6 PO; +METO25TA93 PO; -TRAZ100T3 PO
== END | disposition home or self-care (01) ==
LOC: LAB 14:05
PROVIDERS: ATTEND Internal Medicine
DX: Z12.11 Encounter for screening for malignant neoplasm of colon (principal)
CPT/HCPCS: 82270

== ENCOUNTER 2023-04-21 16:49 | Inpatient (IN) | payer OTHER ==
[~2023-04-21] VITALS: Ht 167.6 cm; Wt 84.8 kg
[2023-04-21 17:31] LABS: Basophils # (auto) 0 10 ^3/uL (0-0.2); Basophils % (auto) 0.3 % (0.0-2.0); Eosinophils # (auto) 0.2 10 ^3/uL (0-0.8); Hematocrit 47.1 % (41.0-53.0); Hemoglobin 16.2 g/dL (13.5-17.5); Lymphocytes # (auto) 1.1 10 ^3/uL (0.4-5.4); Lymphocytes % (auto) 14.2 % (10.0-50.0); Mean Corpuscular Hemoglobin 33.4 pg (28.0-32.0); Mean Corpuscular Hgb Conc. 34.3 g/dL (32.0-36.0); Mean Corpuscular Volume 97.3 fL (80.0-100.0); Monocytes # (auto) 0.8 10 ^3/uL (0-1.3); Neutrophils # (auto) 5.7 10 ^3/uL (1.6-8.6); Neutrophils % (auto) 73.5 % (37.0-80.0); Nucleated Red Blood Cells % 0.4 %; Red Blood Cells 4.84 10^6/uL (4.5-5.90); Red Cell Distribution Width 13.6 % (11.8-14.3); White Blood Cell 7.7 10^3/uL (4.4-10.8)
[2023-04-21] MEDS ORDERED: ASPirin 81 mg TAB PO ONE (17:45)
[2023-04-21 17:52] LABS: Albumin 3.7 g/dL (3.4-5.0); Calcium 8.2 mg/dL (8.5-10.1); Potassium 4.3 mmol/L (3.5-5.1)
[2023-04-21 17:55] LABS: Bilirubin, Total 0.5 mg/dL (0.2-1.0)
[2023-04-21] MEDS ORDERED: NITROGLYCERIN 0.4 MG SL TAB SL PRN (22:00)
[2023-04-21] MEDS ORDERED: ACETAMINOPHEN 325 MG TAB PO PRN (22:00)
[2023-04-21] MEDS ORDERED: MORPHINE SULFATE INJ 2 MG/ml SYRG IV PRN (22:00)
[2023-04-21] MEDS ORDERED: PRAVASTATIN SODIUM 20 MG TAB PO SCH (22:00)
[2023-04-21 22:15] LABS: Urine Bacteria NONE SEEN /hpf (None Seen); Urine Blood Negative /uL (Negative); Urine Mucus FEW (None Seen); Urine Specific Gravity 1.032 (1.001-1.035); Urine WBC 1 /hpf (0 - 3)
[2023-04-22] MEDS: RANOLAZINE ER 500 MG TAB PO SCH ×2 (02:55→10:18)
[2023-04-22] MEDS: PANTOPRAZOLE 40 MG TAB PO SCH ×2 (02:55→10:18)
[2023-04-22 05:30] LABS: Basophils # (auto) 0 10 ^3/uL (0-0.2); Basophils % (auto) 0.5 % (0.0-2.0); Eosinophils # (auto) 0.2 10 ^3/uL (0-0.8); Eosinophils % (auto) 2.6 % (0.0-7.0); Hematocrit 47.7 % (41.0-53.0); Hemoglobin 16.1 g/dL (13.5-17.5); Lymphocytes # (auto) 1.1 10 ^3/uL (0.4-5.4); Lymphocytes % (auto) 14.1 % (10.0-50.0); Mean Corpuscular Hemoglobin 33.1 pg (28.0-32.0); Mean Corpuscular Hgb Conc. 33.8 g/dL (32.0-36.0); Mean Corpuscular Volume 97.8 fL (80.0-100.0); Monocytes # (auto) 0.9 10 ^3/uL (0-1.3); Neutrophils # (auto) 5.5 10 ^3/uL (1.6-8.6); Neutrophils % (auto) 71.8 % (37.0-80.0); Nucleated Red Blood Cells % 0.1 %; Red Blood Cells 4.88 10^6/uL (4.5-5.90); Red Cell Distribution Width 13.5 % (11.8-14.3); White Blood Cell 7.7 10^3/uL (4.4-10.8)
[2023-04-22 05:32] LABS: Albumin 3.8 g/dL (3.4-5.0); Calcium 8.3 mg/dL (8.5-10.1); Potassium 3.9 mmol/L (3.5-5.1)
[2023-04-22 05:37] LABS: Bilirubin, Total 0.7 mg/dL (0.2-1.0); Total Protein 7.5 g/dL (6.4-8.2)
[2023-04-22] MEDS ORDERED: METOPROLOL SUCCINATE XL 50 MG TAB PO SCH (10:00)
[2023-04-22] MEDS ORDERED: ISOSORBIDE MONONITRATE ER 60 MG TAB PO SCH (10:00)
[2023-04-22] MEDS ORDERED: EZETIMIBE 10 MG PO SCH (10:00)
[2023-04-22] MEDS ORDERED: ASPirin-EC 81 mg tab PO SCH (10:00)
[2023-04-22] MEDS ORDERED: MECLIZINE HCL 25 MG TAB PO SCH (10:00)
[2023-04-22] MEDS ORDERED: ASPirin 81 mg TAB PO SCH (10:00)
[2023-04-22 10:15] VITALS: BP 141/78
[2023-04-22] MEDS ORDERED: DICYCLOMINE HCL 10 MG CAP PO SCH (12:00)
== END 2023-04-22 11:56 | disposition home or self-care (01) | DRG 303 ==
LOC: ER 16:49 → TELE 21:52
PROVIDERS: ADMIT Nurse Practitioner Family; ATTEND Internal Medicine
DX: I25.110 Atherosclerotic heart disease of native coronary artery with unstable angina pectoris (principal); I24.9 Acute ischemic heart disease, unspecified; E66.01 Morbid (severe) obesity due to excess calories; E78.5 Hyperlipidemia, unspecified; I10 Essential (primary) hypertension; I49.9 Cardiac arrhythmia, unspecified; Z68.30 Body mass index [BMI] 30.0-30.9, adult; Z85.46 Personal history of malignant neoplasm of prostate; Z85.72 Personal history of non-Hodgkin lymphomas; Z95.1 Presence of aortocoronary bypass graft; I25.2 Old myocardial infarction; Z91.018 Allergy to other foods
CPT/HCPCS: 36415; 71045; 80053; 81001; 83880; 84484; 85025; 93005; G0378

== ENCOUNTER → 2023-04-24 | Outpatient (CLI) | payer OTHER ==
[2023-04-24 13:13] LABS: Urine Bacteria NONE SEEN /hpf (None Seen); Urine Blood Negative /uL (Negative); Urine Specific Gravity 1.023 (1.001-1.035); Urine WBC 5 /hpf (0 - 3)
== END | disposition home or self-care (01) ==
LOC: LAB 12:15
PROVIDERS: ATTEND Urology
DX: R73.03 Prediabetes (principal)
CPT/HCPCS: 36415; 81001; 82570; 84154; 85652

== ENCOUNTER → 2023-05-20 | Outpatient (CLI) | payer OTHER ==
[2023-05-20 13:02] LABS: Urine Bacteria NONE SEEN /hpf (None Seen); Urine Blood Negative /uL (Negative); Urine Specific Gravity 1.024 (1.001-1.035); Urine WBC <1 /hpf (0 - 3)
== END | disposition home or self-care (01) ==
LOC: LAB 12:10
PROVIDERS: ATTEND Urology
DX: N39.0 Urinary tract infection, site not specified (principal)
CPT/HCPCS: 81001; 87086

== ENCOUNTER 2023-06-11 20:14 | Emergency (ER) | payer OTHER ==
[~2023-06-11] VITALS: Ht 175.3 cm; Wt 86.4 kg
[2023-06-11 20:48] LABS: Basophils # (auto) 0 10 ^3/uL (0-0.2); Basophils % (auto) 0.4 % (0.0-2.0); Eosinophils # (auto) 0.1 10 ^3/uL (0-0.8); Eosinophils % (auto) 1.5 % (0.0-7.0); Hematocrit 49.8 % (41.0-53.0); Hemoglobin 16.9 g/dL (13.5-17.5); Lymphocytes # (auto) 0.9 10 ^3/uL (0.4-5.4); Lymphocytes % (auto) 11.5 % (10.0-50.0); Monocytes # (auto) 0.7 10 ^3/uL (0-1.3); Monocytes % (auto) 8.9 % (0.0-12.0); Neutrophils # (auto) 6.3 10 ^3/uL (1.6-8.6); Neutrophils % (auto) 77.7 % (37.0-80.0); Red Blood Cells 5.05 10^6/uL (4.5-5.90); White Blood Cell 8.1 10^3/uL (4.4-10.8)
[2023-06-11 20:49] LABS: Mean Corpuscular Hemoglobin 33.4 pg (28.0-32.0); Mean Corpuscular Hgb Conc. 33.8 g/dL (32.0-36.0); Mean Corpuscular Volume 98.7 fL (80.0-100.0); Red Cell Distribution Width 14.1 % (11.8-14.3)
[2023-06-11 21:04] LABS: Albumin 3.8 g/dL (3.4-5.0); Calcium 8.6 mg/dL (8.5-10.1); Magnesium 2.3 mg/dL (1.6-2.6); Potassium 4.1 mmol/L (3.5-5.1)
[2023-06-11 21:08] LABS: INR 1.04 (0.9-1.15); Partial Thromboplastin Time 28.8 SEC (24.5-34.5)
[2023-06-11 21:10] LABS: BUN/Creatinine Ratio 18.6 (10.0-20.0); Bilirubin, Total 0.6 mg/dL (0.2-1.0); Total Protein 7.9 g/dL (6.4-8.2)
[2023-06-12 01:05] VITALS: BP 146/92
== END 2023-06-12 01:14 | disposition home or self-care (01) ==
LOC: ER 20:14
DX: R07.89 Other chest pain (principal); I25.10 Atherosclerotic heart disease of native coronary artery without angina pectoris; E78.5 Hyperlipidemia, unspecified; I10 Essential (primary) hypertension; Z79.899 Other long term (current) drug therapy; Z79.82 Long term (current) use of aspirin; Z98.890 Other specified postprocedural states; Z87.891 Personal history of nicotine dependence; Z20.822 Contact with and (suspected) exposure to COVID-19; Z91.018 Allergy to other foods
CPT/HCPCS: 36415; 71045; 71250; 74176; 80053; 83735; 83880; 84484; 85025; 85610; 85730; 87426

== ENCOUNTER 2023-07-29 13:38 | Emergency (ER) | payer OTHER ==
[~2023-07-29] VITALS: Ht 175.3 cm; Wt 87.4 kg
[2023-07-29 14:21] LABS: Eosinophils # (auto) 0.2 10 ^3/uL (0-0.8); Eosinophils % (auto) 2.8 % (0.0-7.0); Hemoglobin 18.2 g/dL (13.5-17.5); Mean Corpuscular Hgb Conc. 33.8 g/dL (32.0-36.0); White Blood Cell 8.1 10^3/uL (4.4-10.8)
[2023-07-29 14:22] LABS: Basophils # (auto) 0.1 10 ^3/uL (0-0.2); Basophils % (auto) 0.8 % (0.0-2.0); Lymphocytes # (auto) 1.1 10 ^3/uL (0.4-5.4); Lymphocytes % (auto) 14.2 % (10.0-50.0); Mean Corpuscular Volume 97.5 fL (80.0-100.0); Monocytes # (auto) 0.9 10 ^3/uL (0-1.3); Monocytes % (auto) 11.8 % (0.0-12.0); Neutrophils # (auto) 5.7 10 ^3/uL (1.6-8.6); Neutrophils % (auto) 70.4 % (37.0-80.0); Nucleated Red Blood Cells % 0.1 %; Red Blood Cells 5.54 10^6/uL (4.5-5.90); Red Cell Distribution Width 14.2 % (11.8-14.3)
[2023-07-29 14:39] LABS: INR 1.03 (0.9-1.15); Partial Thromboplastin Time 30.6 SEC (24.5-34.5); Prothrombin Time 10.8 sec (9.3-11.8)
[2023-07-29 15:00] LABS: Alanine Aminotransferase 18 U/L (7-40); Albumin 4.7 g/dL (3.2-4.8); Alkaline Phosphatase 86 U/L (46-116); Anion Gap 8.7 (5-15); Aspartate Aminotransferase 24 U/L (13-40); BUN/Creatinine Ratio 19.5 (10.0-20.0); Bilirubin, Total 0.7 mg/dL (0.2-1.0); Blood Urea Nitrogen 23 mg/dL (9-23); Calcium 9.5 mg/dL (8.7-10.4); Carbon Dioxide 22.3 mmol/L (20-30); Chloride 111 mmol/L (98-107); Glucose 89 mg/dL (74-106); Magnesium 2.3 mg/dL (1.6-2.6); Potassium 4.4 mmol/L (3.5-5.1); Sodium 142 mmol/L (136-145); Total Protein 7.8 g/dL (5.7-8.2)
[2023-07-29 19:05] VITALS: BP 123/80; PULSE 88; RESP 20; TEMP 98; O2SAT 96
== END 2023-07-29 19:05 | disposition home or self-care (01) ==
LOC: ER 13:38
DX: R07.89 Other chest pain (principal); R00.2 Palpitations; I25.2 Old myocardial infarction; I10 Essential (primary) hypertension; E78.5 Hyperlipidemia, unspecified; I25.10 Atherosclerotic heart disease of native coronary artery without angina pectoris; F15.90 Other stimulant use, unspecified, uncomplicated; Z85.9 Personal history of malignant neoplasm, unspecified; Z98.890 Other specified postprocedural states; Z87.891 Personal history of nicotine dependence; Z79.82 Long term (current) use of aspirin; Z79.899 Other long term (current) drug therapy; Z91.018 Allergy to other foods
CPT/HCPCS: 36415; 71045; 80053; 83735; 83880; 84484; 85025; 85610; 85730; 93005

== ENCOUNTER → 2023-07-30 | Outpatient (CLI) | payer OTHER | END | disposition home or self-care (01) | LOC: LAB 14:19 | PROVIDERS: ATTEND Internal Medicine | DX: R07.9 Chest pain, unspecified (principal) | CPT/HCPCS: 36415; 85379 ==

== ENCOUNTER → 2023-08-02 | Outpatient (CLI) | payer OTHER | END | disposition home or self-care (01) | LOC: LAB 11:07 | PROVIDERS: ATTEND Radiology Radiation Oncology | DX: C61 Malignant neoplasm of prostate (principal) | CPT/HCPCS: 84153 ==

== ENCOUNTER → 2023-09-09 | Outpatient (CLI) | payer OTHER ==
[2023-09-09 13:01] LABS: Anion Gap 9 (5-15); Carbon Dioxide 24 mmol/L (20-30); Chloride 109 mmol/L (98-107); Potassium 4.1 mmol/L (3.5-5.1); Sodium 142 mmol/L (136-145)
[2023-09-09 13:07] LABS: BUN/Creatinine Ratio 10.9 (10.0-20.0); Blood Urea Nitrogen 13 mg/dL (9-23); Glucose 95 mg/dL (74-106); Triglycerides 129 mg/dL (< 150)
[2023-09-09 13:08] LABS: Cholesterol 102 mg/dL (< 200); LDL Cholesterol 38 mg/dL (< 100)
[2023-09-09 13:09] LABS: HDL Cholesterol 46 mg/dL (40-59)
[2023-09-09 15:01] LABS: Creatinine, Urine 276.72 mg/dL (30.0-125.0)
== END | disposition home or self-care (01) ==
LOC: LAB 11:55
PROVIDERS: ATTEND Internal Medicine
DX: R73.03 Prediabetes (principal)
CPT/HCPCS: 36415; 80048; 80061; 82043; 82570; 84153

== ENCOUNTER → 2023-10-16 | Outpatient (CLI) | payer OTHER | END | disposition home or self-care (01) | LOC: LAB 13:54 | PROVIDERS: ATTEND Urology | DX: C61 Malignant neoplasm of prostate (principal); N40.1 Benign prostatic hyperplasia with lower urinary tract symptoms | CPT/HCPCS: 84153 ==

== ENCOUNTER → 2024-01-17 | Outpatient (CLI) | payer OTHER | END | disposition home or self-care (01) | LOC: LAB 10:26 | PROVIDERS: ATTEND Internal Medicine | DX: R53.83 Other fatigue (principal) | CPT/HCPCS: 36415; 84403 ==

== ENCOUNTER → 2024-04-16 | Outpatient (CLI) | payer OTHER ==
[2024-04-16 07:31] LABS: Basophils # (auto) 0 10 ^3/uL (0-0.2); Basophils % (auto) 0.4 % (0.0-2.0); Eosinophils # (auto) 0.3 10 ^3/uL (0-0.8); Eosinophils % (auto) 3.2 % (0.0-7.0); Hematocrit 48.1 % (41.0-53.0); Hemoglobin 16.1 g/dL (13.5-17.5); Lymphocytes # (auto) 1.5 10 ^3/uL (0.4-5.4); Lymphocytes % (auto) 18.9 % (10.0-50.0); Mean Corpuscular Hemoglobin 32.6 pg (28.0-32.0); Mean Corpuscular Hgb Conc. 33.5 g/dL (32.0-36.0); Mean Corpuscular Volume 97.2 fL (80.0-100.0); Monocytes # (auto) 0.9 10 ^3/uL (0-1.3); Neutrophils # (auto) 5.2 10 ^3/uL (1.6-8.6); Neutrophils % (auto) 65.5 % (37.0-80.0); Nucleated Red Blood Cells % 0.1 %; Red Blood Cells 4.95 10^6/uL (4.5-5.90); Red Cell Distribution Width 14.2 % (11.8-14.3); White Blood Cell 7.9 10^3/uL (4.4-10.8)
[2024-04-16 08:06] LABS: Erythrocyte Sedimentation Rate 3 mm/hr (0-20)
[2024-04-16 08:10] LABS: Alanine Aminotransferase 16 U/L (7-40); Albumin 4.3 g/dL (3.2-4.8); Alkaline Phosphatase 84 U/L (46-116); Anion Gap 5 (5-15); Aspartate Aminotransferase 29 U/L (13-40); BUN/Creatinine Ratio 12.3 (10.0-20.0); Bilirubin, Total 0.6 mg/dL (0.2-1.0); Blood Urea Nitrogen 14 mg/dL (9-23); Carbon Dioxide 27 mmol/L (20-30); Chloride 108 mmol/L (98-107); Glucose 86 mg/dL (74-106); Potassium 3.7 mmol/L (3.5-5.1); Sodium 140 mmol/L (136-145); Total Protein 7.3 g/dL (5.7-8.2)
[2024-04-18 08:34] LABS: Urine Bacteria None Seen /hpf (None Seen)
[2024-04-18 09:03] LABS: Urine Blood Negative /uL (Negative); Urine Clarity Clear (Clear); Urine Color Light-Yellow (Yellow); Urine Protein, UAD Negative (Negative); Urine Specific Gravity 1.022 (1.001-1.035); Urine Urobilinogen Normal (Negative); Urine WBC 1 /hpf (0 - 3)
[2024-04-18 09:26] LABS: Creatinine, Urine 101.26 mg/dL (30.0-125.0)
[2024-04-18 09:28] LABS: Micro Albumin < 3.0 mg/L (<30.0)
== END | disposition home or self-care (01) ==
LOC: LAB 07:01
PROVIDERS: ATTEND Internal Medicine
DX: Z12.11 Encounter for screening for malignant neoplasm of colon (principal); I10 Essential (primary) hypertension; E78.5 Hyperlipidemia, unspecified; R73.03 Prediabetes; C61 Malignant neoplasm of prostate; Z79.899 Other long term (current) drug therapy
CPT/HCPCS: 36415; 80053; 81001; 82043; 82270; 82570; 83036; 84153; 84443; 85025; 85652

== ENCOUNTER → 2024-06-02 | Outpatient (CLI) | payer OTHER | END | disposition home or self-care (01) | LOC: LAB 13:59 | PROVIDERS: ATTEND Internal Medicine | DX: E03.9 Hypothyroidism, unspecified (principal) | CPT/HCPCS: 36415; 84153; 84443 ==

== ENCOUNTER 2024-08-15 07:29 | Emergency (ER) | payer OTHER ==
[~2024-08-15] VITALS: Ht 175.3 cm; Wt 87.3 kg
[2024-08-15 10:23] VITALS: BP 141/75; PULSE 74; RESP 18; TEMP 97.9; O2SAT 94
[2024-08-15] MEDS ORDERED: TRAM-626 PO (11:00)
== END 2024-08-15 11:11 | disposition home or self-care (01) ==
LOC: ER 07:29
DX: S63.592A Other specified sprain of left wrist, initial encounter (principal); S39.012A Strain of muscle, fascia and tendon of lower back, initial encounter; I10 Essential (primary) hypertension; E78.00 Pure hypercholesterolemia, unspecified; I25.10 Atherosclerotic heart disease of native coronary artery without angina pectoris; Z79.82 Long term (current) use of aspirin; Z79.899 Other long term (current) drug therapy; Z98.890 Other specified postprocedural states; Z88.8 Allergy status to other drugs, medicaments and biological substances; Z91.018 Allergy to other foods; W11.XXXA Fall on and from ladder, initial encounter; Y93.89 Activity, other specified; Y92.89 Other specified places as the place of occurrence of the external cause; Y99.8 Other external cause status
CPT/HCPCS: 29125; 72100; 73130

== ENCOUNTER 2024-09-09 10:28 | Inpatient (IN) | payer OTHER ==
[~2024-09-09] VITALS: Ht 175.3 cm; Wt 87.9 kg
[~2024-09-09 10:28] MED LIST changes: +TRAM-626 PO
[2024-09-09 11:00] LABS: Basophils # (auto) 0 10 ^3/uL (0-0.2); Eosinophils # (auto) 0.2 10 ^3/uL (0-0.8); Monocytes # (auto) 0.8 10 ^3/uL (0-1.3); Neutrophils # (auto) 4.7 10 ^3/uL (1.6-8.6); White Blood Cell 6.8 10^3/uL (4.4-10.8)
[2024-09-09 11:04] LABS: Basophils % (auto) 0.4 % (0.0-2.0); Eosinophils % (auto) 2.6 % (0.0-7.0); Hematocrit 49.8 % (41.0-53.0); Lymphocytes % (auto) 15.3 % (10.0-50.0); Mean Corpuscular Hemoglobin 33.9 pg (28.0-32.0); Mean Corpuscular Hgb Conc. 34.2 g/dL (32.0-36.0); Mean Corpuscular Volume 99.1 fL (80.0-100.0); Monocytes % (auto) 11.9 % (0.0-12.0); Neutrophils % (auto) 69.8 % (37.0-80.0); Platelet Count (auto) 169 10^3/uL (140-450); Red Blood Cells 5.02 10^6/uL (4.5-5.90); Red Cell Distribution Width 13.7 % (11.8-14.3)
[2024-09-09 11:22] LABS: Alanine Aminotransferase 18 U/L (7-40); Albumin 4.2 g/dL (3.2-4.8); Alkaline Phosphatase 84 U/L (46-116); Anion Gap 8 (5-15); Aspartate Aminotransferase 22 U/L (13-40); BUN/Creatinine Ratio 23.7 (10.0-20.0); Bilirubin, Total 0.7 mg/dL (0.2-1.0); Blood Urea Nitrogen 27 mg/dL (9-23); Calcium 9.3 mg/dL (8.7-10.4); Carbon Dioxide 22 mmol/L (20-31); Chloride 113 mmol/L (98-107); Glucose 108 mg/dL (74-106); Potassium 3.9 mmol/L (3.5-5.1); Sodium 143 mmol/L (136-145)
[2024-09-09 16:00] VITALS: PULSE 77; RESP 16; O2SAT 95
[2024-09-09] MEDS ORDERED: ONDANSETRON HCL 4 MG/2 ML VIAL IV PRN (17:00)
[2024-09-09] MEDS ORDERED: MORPHINE SULFATE INJ 2 MG/ml SYRG IV PRN (17:00)
[2024-09-09] MEDS ORDERED: NITROGLYCERIN 0.4 MG SL TAB SL PRN (17:00)
[2024-09-09] MEDS ORDERED: ACETAMINOPHEN 325 MG TAB PO PRN (17:00)
[2024-09-09] MEDS: DICYCLOMINE HCL 10 MG CAP PO SCH (18:00)
[2024-09-09] MEDS ORDERED: DICYCLOMINE HCL 20 MG PO SCH (18:00)
[2024-09-09 19:20] VITALS: PULSE 57; RESP 18; O2SAT 98
[2024-09-09] MEDS: PRAVASTATIN SODIUM 20 MG TAB PO SCH (22:38)
[2024-09-09] MEDS: PANTOPRAZOLE 40 MG TAB PO SCH (22:38)
[2024-09-09] MEDS: RANOLAZINE ER 500 MG TAB PO SCH (22:38)
[2024-09-09 23:25] VITALS: BP 158/89; PULSE 63; PULSE 66; RESP 17; RESP 20; TEMP 97.8; O2SAT 98
[2024-09-10 01:00] VITALS: BP 146/83; PULSE 59; RESP 18; TEMP 97.7; O2SAT 96
[2024-09-10 05:00] VITALS: BP 162/93; PULSE 61; RESP 17; TEMP 97.8; O2SAT 97
[2024-09-10 06:19] LABS: Basophils # (auto) 0 10 ^3/uL (0-0.2); Basophils % (auto) 0.3 % (0.0-2.0); Eosinophils # (auto) 0.2 10 ^3/uL (0-0.8); Lymphocytes # (auto) 0.9 10 ^3/uL (0.4-5.4); Monocytes # (auto) 0.7 10 ^3/uL (0-1.3)
[2024-09-10 06:22] LABS: Eosinophils % (auto) 2.6 % (0.0-7.0); Hemoglobin 17.8 g/dL (13.5-17.5); Lymphocytes % (auto) 13.3 % (10.0-50.0); Mean Corpuscular Hemoglobin 34.3 pg (28.0-32.0); Mean Corpuscular Hgb Conc. 34.8 g/dL (32.0-36.0); Mean Corpuscular Volume 98.5 fL (80.0-100.0); Monocytes % (auto) 11.1 % (0.0-12.0); Neutrophils # (auto) 4.8 10 ^3/uL (1.6-8.6); Neutrophils % (auto) 72.7 % (37.0-80.0); Platelet Count (auto) 164 10^3/uL (140-450); Red Blood Cells 5.18 10^6/uL (4.5-5.90); Red Cell Distribution Width 13.5 % (11.8-14.3); White Blood Cell 6.6 10^3/uL (4.4-10.8)
[2024-09-10 06:33] LABS: Anion Gap 8 (5-15); Calcium 9.1 mg/dL (8.7-10.4); Carbon Dioxide 23 mmol/L (20-31); Chloride 111 mmol/L (98-107); Potassium 3.9 mmol/L (3.5-5.1); Sodium 142 mmol/L (136-145)
[2024-09-10 06:39] LABS: BUN/Creatinine Ratio 21.9 (10.0-20.0); Blood Urea Nitrogen 23 mg/dL (9-23); Glucose 88 mg/dL (74-106)
[2024-09-10 09:00] VITALS: BP 132/77; PULSE 76; RESP 18; TEMP 97.6; O2SAT 96
[2024-09-10] MEDS ORDERED: hydrALAZINE HCL 20 MG/ML VL IV PRN (09:45)
[2024-09-10] MEDS ORDERED: PATIENTS OWN MEDICATION (Isosorbide Mononitrate (Isosorbide Mononitrate Er) 30 MG) PO SCH (10:00)
[2024-09-10] MEDS: ISOSORBIDE MONONITRATE ER 60 MG TAB PO SCH (11:11)
[2024-09-10] MEDS: METOPROLOL TARTRATE 25 MG TAB PO SCH (11:12)
[2024-09-10] MEDS: ASPirin-EC 81 mg tab PO SCH (11:13)
[2024-09-10 13:00] VITALS: BP 133/83; PULSE 71; RESP 18; TEMP 97.7; O2SAT 94
== END 2024-09-10 16:00 | disposition left against medical advice (07) | DRG 310 ==
LOC: ER 10:28 → TELE 17:00 → TELE-WESTW 23:11
PROVIDERS: ADMIT Internal Medicine; ATTEND Internal Medicine
DX: R00.0 Tachycardia, unspecified (principal); I10 Essential (primary) hypertension; E78.5 Hyperlipidemia, unspecified; K21.9 Gastro-esophageal reflux disease without esophagitis; K44.9 Diaphragmatic hernia without obstruction or gangrene; E03.9 Hypothyroidism, unspecified; I25.10 Atherosclerotic heart disease of native coronary artery without angina pectoris; Z91.018 Allergy to other foods; Z95.1 Presence of aortocoronary bypass graft; Z98.61 Coronary angioplasty status; Z87.891 Personal history of nicotine dependence; Z86.718 Personal history of other venous thrombosis and embolism; Z80.42 Family history of malignant neoplasm of prostate; Z82.49 Family history of ischemic heart disease and other diseases of the circulatory system; Z79.899 Other long term (current) drug therapy; Z79.82 Long term (current) use of aspirin
CPT/HCPCS: 36415; 71046; 80048; 80053; 84443; 84484; 85025; 93005; 93306; 99291; G0378

== ENCOUNTER 2024-10-13 21:16 | Emergency (ER) | payer OTHER ==
[~2024-10-13] VITALS: Ht 175.3 cm; Wt 84.5 kg
[2024-10-13 21:49] LABS: Basophils # (auto) 0 10 ^3/uL (0-0.2); Basophils % (auto) 0.4 % (0.0-2.0); Eosinophils # (auto) 0.1 10 ^3/uL (0-0.8); Eosinophils % (auto) 1.6 % (0.0-7.0); Hematocrit 51.3 % (41.0-53.0); Hemoglobin 17.4 g/dL (13.5-17.5); Lymphocytes # (auto) 1.3 10 ^3/uL (0.4-5.4); Lymphocytes % (auto) 15.2 % (10.0-50.0); Mean Corpuscular Hemoglobin 33.6 pg (28.0-32.0); Mean Corpuscular Volume 98.9 fL (80.0-100.0); Monocytes # (auto) 0.9 10 ^3/uL (0-1.3); Monocytes % (auto) 10.5 % (0.0-12.0); Neutrophils # (auto) 6.2 10 ^3/uL (1.6-8.6); Neutrophils % (auto) 72.3 % (37.0-80.0); Platelet Count (auto) 187 10^3/uL (140-450); Red Blood Cells 5.18 10^6/uL (4.5-5.90); Red Cell Distribution Width 14.1 % (11.8-14.3); White Blood Cell 8.6 10^3/uL (4.4-10.8)
[2024-10-13 22:08] LABS: Alanine Aminotransferase 16 U/L (7-40); Albumin 4.5 g/dL (3.2-4.8); Alkaline Phosphatase 76 U/L (46-116); Anion Gap 8 (5-15); Aspartate Aminotransferase 20 U/L (13-40); BUN/Creatinine Ratio 16.5 (10.0-20.0); Blood Urea Nitrogen 21 mg/dL (9-23); Calcium 9.5 mg/dL (8.7-10.4); Carbon Dioxide 21 mmol/L (20-31); Chloride 113 mmol/L (98-107); Glucose 106 mg/dL (74-106); Magnesium 2.4 mg/dL (1.6-2.6); Potassium 4.3 mmol/L (3.5-5.1); Sodium 142 mmol/L (136-145)
[2024-10-13 22:09] LABS: Bilirubin, Total 0.4 mg/dL (0.2-1.0); Total Protein 7.5 g/dL (5.7-8.2)
[2024-10-13 22:14] LABS: INR 1.03 (0.9-1.15); Partial Thromboplastin Time 27.2 SEC (24.5-34.5); Prothrombin Time 10.9 sec (9.3-11.8)
--- NOTE | 2024-10-13 22:45 | DVH ---
CHEST RADIOGRAPH Indication:CP Technique: Single frontal view of the chest was obtained Comparison: XY CHEST PORTABLE on DOS: 10 9024, 07/29/23, XY CHEST PORTABLE on DOS: 06/11/23, XY CHEST P ORTABLE on DOS: 04/21/23 FINDINGS: Lines and Tubes: Sternal wire sutures in place. Lungs: No focal consolidation. Hiatal hernia noted in the retrocardiac area with air-fluid level. Pleura: No effusion. No pneumothorax. Cardiomediastinal contours: Unremarkable Bones: No acute osseous abnormality. IMPRESSION: 1. No acute cardiopulmonary disease. 2. Stable hiatal hernia in the retrocardiac area with air-fluid level.
--- NOTE | 2024-10-13 23:07 | ED.PDOC ---
HPI Comments Patient complaining of intermittent dizziness x1 week. States dizziness comes on when he goes from sitting to standing. No fever no chills. No chest pain no shortness a breath. States he was noticed blood pressure being on the lower end, 100/40. States he checks his blood pressure before taking his blood pressure medications. Nothing makes Chief Complaint: Dizziness Time Seen by MD: 21:33 Primary Care Provider: UNKNOWN Reviewed Notes: Nurses Notes (From sitting) Allergies: Coded Allergies: [place] (Verified Allergy, Severe, Tingling and swelling of mouth, eyes tearing, 11/01/21) Atorvastatin (Verified Allergy, Unknown, 08/15/24) Home Meds Active Scripts Tramadol HCl (Tramadol HCl) 50 Mg Tab, 50 MG PO BID, #20 TAB Prov:JUAN JOSÉ METZ 08/15/24 Metoprolol Succinate (Metoprolol Succinate Er) 25 Mg Tab, 0.5 TAB PO DAILY, #30 TAB 0 Refills Prov:BONG PERRY MD 04/03/23 Meclizine HCl (Meclizine 25) 25 Mg Tab, 25 MG PO DAILY for 10 Days, #10 TAB Prov:EDWARDO GILLIAM MD 02/01/22 Ranolazine (Ranexa) 500 Mg Tab, 500 MG PO BID for 30 Days, #60 TAB Prov:BONG PERRY MD 11/02/21 Reported Medications Ezetimibe (Zetia) 10 Mg Tab, 10 MG PO DAILY, TAB 05/23/22 Melatonin (KP MELATONIN) 3 Mg Tab, 10 MG PO QPM, TAB 05/23/22 Cetirizine Hcl (Kls Aller-En) 10 Mg Tab, 10 MG PO DAILY, TAB 05/23/22 Isosorbide Mononitrate (Isosorbide Mononitrate Er) 30 Mg Tab, 30 MG PO DAILY, TAB 05/23/22 Artificial Tear Solution (ARTIFICIAL TEARS) Tears [place], 2 DROP EACHEYE QIDPRN for DRY EYES, ML 05/23/22 Pravastatin Sodium (PRAVACHOL TABLET) 20 Mg Tb, 80 MG PO HS, TAB 05/23/22 Dicyclomine Hcl (Dicyclomine Hcl) 20 Mg Tab, 20 MG PO QID, TAB 05/23/22 Pantoprazole Sodium Sesquihydr (Protonix) 40 Mg Tab, 40 MG PO BID, #30 TAB 05/23/22 Aspirin (Aspir-81) 81 Mg Tab, 81 MG PO DAILY, TAB 05/23/22 Nitroglycerin (NTROSTAT SUBLINGUAL) 0.4 Mg Sl, 0.4 MG SL PRN PRN for FOR CHEST PAIN *MAY REPEAT EVERY 5 MINUTES X 3 TOTAL IF NO RELIEF, INITIATE ANALGESIC THERAPY. NOTIFY PHYSICIAN *Do not crush. 04/09/21 Information Source: Patient (To standing makes he was dizziness and) Mode of Arrival: Ambulatory Past Medical History PAST MEDICAL HISTORY: CAD, Cancer, High Lipids, HTN Surgical History: CABG, Hernia Repair, PTCA Family History Family History: Reviewed,noncontributory to illness Social History Smoker: Non-Smoker, Quit Greater Than 1 Year Alcohol: Occasionally Drugs: Denies Drug Use, Marijuana Lives In: Home Constitutional: denies: chills, diaphoresis, fatigue, fever, malaise, sweats, weakness, others EENTM: denies: blurred vision, double vision, ear bleeding, ear discharge, ear drainage, ear pain, ear ringing, eye pain, eye redness, hearing loss, mouth pain, mouth swelling, nasal discharge, nose bleeding, nose congestion, nose pain, photophobia, tearing, throat pain, throat swelling, voice changes, others Respiratory: denies: cough, hemoptysis, orthopnea, SOB at rest, shortness of breath, SOB with excertion, stridor, wheezing, others Cardiovascular: reports: dizzy spells; denies: chest pain, diaphoresis, Dyspnea on exertion, edema, irregular heart beat, left arm pain, lightheadedness, palpitations, PND, syncope, others Gastrointestinal: denies: abdomen distended, abdominal pain, blood streaked bowels, constipated, diarrhea, dysphagia, difficulty swallowing, hematemesis, melena, nausea, poor appetite, poor fluid intake, rectal bleeding, rectal pain, vomiting, others Genitourinary: denies: burning, dysuria, flank pain, frequency, hematuria, incontinence, penile discharge, penile sore, pain, testicle pain, testicle swelling, urgency, others Neurological: denies: dizziness, fainting, headache, left sided numbness, left sided weakness, numbness, paresthesia, pre-existing deficit, right sided numbness, right sided weakness, seizure, speech problems, tingling, tremors, weakness, others Musculoskeletal: denies: back pain, gout, joint pain, joint swelling, muscle pain, muscle stiffness, neck pain, others Integumetry: denies: bruises, change in color, change in hair/nails, dryness, laceration, lesions, lumps, rash, wounds, others Allergic/Immunocompromised: denies: Difficulty Healing, Frequent Infections, Hives, Itching, others Hematologic/Lymphatic: denies: anemia, blood clots, easy bleeding, easy bruising, swollen glands, others Physical Exam General Appearance: No Apparent Distress, Normal HEENT: Normal ENT Inspection, Pharynx Normal, TMs Normal Neck: Full Range of Motion, Non-Tender, Normal, Normal Inspection Respiratory: Chest Non-Tender, Lungs Clear, No Accessory Muscle Use, No Respiratory Distress, Normal Breath Sounds Cardiovascular: No Edema, No JVD, No Murmur, No Gallop, Normal Peripheral Pulses, Regular Rate/Rhythm Breast Exam: Deferred Gastrointestinal: No Organomegaly, Non Tender, No Pulsatile Mass, Normal Bowel Sounds, Soft Genitalia: Deferred Pelvic: Deferred Rectal: Deferred Extremities: No calf tenderness, Normal capillary refill, Normal inspection, Normal range of motion, Non-tender, No pedal edema Musculoskeletal : Apperance: Normal Neurologic: Alert, 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 Was a procedure done?: No CP Differential Dx Differential Diagnosis: Angina, Anxiety / Panic Attack, Heart Failure Differential Diagnosis: CHF, HTN Essential, HTN Accelerated X-Ray, Labs, Meds, VS Vital Signs Date Time Temp Pulse Resp B/P (MAP) Pulse Ox O2 Delivery O2 Flow Rate FiO2 10/13/24 21:31 79 10/13/24 21:27 98.0 86 16 137/91 (106) 98 Lab Test 10/13/24 21:34 Range/Units White Blood Count 8.6 4.4-10.8 10^3/uL Red Blood Count 5.18 4.5-5.90 10^6/uL Hemoglobin 17.4 13.5-17.5 g/dL Hematocrit 51.3 41.0-53.0 % Mean Corpuscular Volume 98.9 80.0-100.0 fL Mean Corpuscular Hemoglobin 33.6 H 28.0-32.0 pg Mean Corpuscular Hemoglobin Concent 34.0 32.0-36.0 g/dL Red Cell Distribution Width 14.1 11.8-14.3 % Platelet Count 187 140-450 10^3/uL Mean Platelet Volume 9.1 6.9-10.8 fL Neutrophils (%) (Auto) 72.3 37.0-80.0 % Lymphocytes (%) (Auto) 15.2 10.0-50.0 % Monocytes (%) (Auto) 10.5 0.0-12.0 % Eosinophils (%) (Auto) 1.6 0.0-7.0 % Basophils (%) (Auto) 0.4 0.0-2.0 % Neutrophils # (Auto) 6.2 1.6-8.6 10 ^3/uL Lymphocytes # (Auto) 1.3 0.4-5.4 10 ^3/uL Monocytes # (Auto) 0.9 0-1.3 10 ^3/uL Eosinophils # (Auto) 0.1 0-0.8 10 ^3/uL Basophils # (Auto) 0 0-0.2 10 ^3/uL Nucleated Red Blood Cells 0.0 % Prothrombin Time 10.9 9.3-11.8 sec Prothrombin Time INR 1.03 0.9-1.15 Activated Partial Thromboplast Time 27.2 24.5-34.5 SEC Sodium Level 142 136-145 mmol/L Potassium Level 4.3 3.5-5.1 mmol/L Chloride Level 113 H 98-107 mmol/L Carbon Dioxide Level 21 20-31 mmol/L Anion Gap 8 5-15 Blood Urea Nitrogen 21 9-23 mg/dL Creatinine 1.27 0.700-1.30 mg/dL Glomerular Filtration Rate Calc 59 >90 mL/min BUN/Creatinine Ratio 16.5 10.0-20.0 Serum Glucose 106 74-106 mg/dL Calcium Level 9.5 8.7-10.4 mg/dL Magnesium Level 2.4 1.6-2.6 mg/dL Total Bilirubin 0.4 0.2-1.0 mg/dL Aspartate Amino Transferase (AST) 20 13-40 U/L Alanine Aminotransferase (ALT) 16 7-40 U/L Alkaline Phosphatase 76 46-116 U/L Troponin I High Sensitivity < 3 L </=54 ng/L B-Type Natriuretic Peptide 40.14 0-100 pg/mL Total Protein 7.5 5.7-8.2 g/dL Albumin 4.5 3.2-4.8 g/dL X-Ray, Labs, Meds, VS Comment Imaging: X-rays and CT scans were reviewed and interpreted by this provider, imaging shows no fractures and no pathological disease. Pending radiology review. Laboratory: Labs reviewed and interpreted by this provider. No significant abnormalities noted. Patient has prior medical visits reviewed. Med reconciliation performed Vital signs reviewed Time of 1ST Reevaluation: 23:07 Reevaluation 1ST: Improved Patient Education/Counseling: Diagnosis, Treatment, Need For Follow Up (Patient advised to follow-up in the emergency room in the next 24 to 48 hours if symptoms do not improve. Advised follow-up with PCP in the next 3 to 5 days. Patient verbalized understanding. ) Family Education/Counseling: Diagnosis Departure 1 Departure Time of Disposition: 23:06 Impression: Primary Impression: Benign positional vertigo Qualified Codes: H81.13 - Benign paroxysmal vertigo, bilateral Additional Impression: HTN (hypertension) Qualified Codes: I10 - Essential (primary) hypertension Disposition: 01 HOME / SELF CARE / HOMELESS Condition: Fair Discharged With: Self Critical Care Note Critical Care Time?: No Stability Stability form required: No Heart Score Heart Score: Heart Score Response (Comments) Value History Slightly Suspicious 0 EKG Normal 0 Age >65 2 Risk Factors 1 or 2 risk factors 1 Troponin Normal limit 0 Total 3 TUNDE JENKINS Oct 13, 2024 23:07
[2024-10-14 00:15] VITALS: BP 139/89; TEMP 97.9
[2024-10-14 00:23] VITALS: PULSE 75; RESP 20; O2SAT 97
--- NOTE | 2024-10-14 10:50 | ECG ---
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
== END 2024-10-14 00:26 | disposition home or self-care (01) ==
LOC: ER 21:16
DX: I10 Essential (primary) hypertension (principal); H81.10 Benign paroxysmal vertigo, unspecified ear; I25.10 Atherosclerotic heart disease of native coronary artery without angina pectoris; E78.5 Hyperlipidemia, unspecified; F15.90 Other stimulant use, unspecified, uncomplicated; Z85.9 Personal history of malignant neoplasm, unspecified; Z98.890 Other specified postprocedural states; Z95.1 Presence of aortocoronary bypass graft; Z87.891 Personal history of nicotine dependence; Z79.82 Long term (current) use of aspirin; Z79.899 Other long term (current) drug therapy; Z88.8 Allergy status to other drugs, medicaments and biological substances; Z91.018 Allergy to other foods; Z86.2 Personal history of diseases of the blood and blood-forming organs and certain disorders involving the immune mechanism
CPT/HCPCS: 36415; 71045; 80053; 83735; 83880; 84484; 85025; 85610; 85730; 93005

== ENCOUNTER 2024-10-30 23:14 | Emergency (ER) | payer OTHER ==
[~2024-10-30] VITALS: Ht 177.8 cm; Wt 100.0 kg
--- NOTE | 2024-10-30 23:32 | ED.PDOC ---
HPI Comments 74-year-old male who came to ER via EMS for palpitations. Patient does have history of hypertension, dyslipidemia, thyroid disease, second-degree heart block, status post cardiac stents, CABG. Patient states it is not uncommon for him the episodes of palpitations every now and then. However earlier, he 0 was having palpitations, dizziness, diaphoresis, which lasted over 30 minutes so he decided to come to the ER. Patient also has been drinking alcohol earlier today. 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 Allergies: Coded Allergies: [place] (Verified Allergy, Severe, Tingling and swelling of mouth, eyes tearing, 11/01/21) Atorvastatin (Verified Allergy, Unknown, 08/15/24) Home Meds Active Scripts Tramadol HCl (Tramadol HCl) 50 Mg Tab, 50 MG PO BID, #20 TAB Prov:JUAN JOSÉ METZ 08/15/24 Metoprolol Succinate (Metoprolol Succinate Er) 25 Mg Tab, 0.5 TAB PO DAILY, #30 TAB 0 Refills Prov:BONG PERRY MD 04/03/23 Meclizine HCl (Meclizine 25) 25 Mg Tab, 25 MG PO DAILY for 10 Days, #10 TAB Prov:EDWARDO GILLIAM MD 02/01/22 Ranolazine (Ranexa) 500 Mg Tab, 500 MG PO BID for 30 Days, #60 TAB Prov:BONG PERRY MD 11/02/21 Reported Medications Ezetimibe (Zetia) 10 Mg Tab, 10 MG PO DAILY, TAB 05/23/22 Melatonin (KP MELATONIN) 3 Mg Tab, 10 MG PO QPM, TAB 05/23/22 Cetirizine Hcl (Kls Aller-En) 10 Mg Tab, 10 MG PO DAILY, TAB 05/23/22 Isosorbide Mononitrate (Isosorbide Mononitrate Er) 30 Mg Tab, 30 MG PO DAILY, TAB 05/23/22 Artificial Tear Solution (ARTIFICIAL TEARS) Tears [place], 2 DROP EACHEYE QIDPRN for DRY EYES, ML 05/23/22 Pravastatin Sodium (PRAVACHOL TABLET) 20 Mg Tb, 80 MG PO HS, TAB 05/23/22 Dicyclomine Hcl (Dicyclomine Hcl) 20 Mg Tab, 20 MG PO QID, TAB 05/23/22 Pantoprazole Sodium Sesquihydr (Protonix) 40 Mg Tab, 40 MG PO BID, #30 TAB 05/23/22 Aspirin (Aspir-81) 81 Mg Tab, 81 MG PO DAILY, TAB 05/23/22 Nitroglycerin (NTROSTAT SUBLINGUAL) 0.4 Mg Sl, 0.4 MG SL PRN PRN for FOR CHEST PAIN *MAY REPEAT EVERY 5 MINUTES X 3 TOTAL IF NO RELIEF, INITIATE ANALGESIC THERAPY. NOTIFY PHYSICIAN *Do not crush. 04/09/21 Information Source: Patient, Emergency Med Personnel Mode of Arrival: EMS Severity: Moderate Timing: Hours Duration: Since onset Prehospital treatment: None Quality: Other (Palpitations) Onset: With Light Exertion Cardiac Risk Factors: Hyperlipidemia, HTN History of: Similar pain in past Associated Signs and Symptoms: Palpitations, Diaphoresis, Other (Dizziness) Past Medical History PAST MEDICAL HISTORY: CAD, Cancer, High Lipids, HTN, Thyroid Surgical History: CABG, Hernia Repair, PTCA Family History Family History: Reviewed,noncontributory to illness Social History Smoker: Non-Smoker, Quit Greater Than 1 Year Alcohol: Occasionally Drugs: Denies Drug Use, Marijuana Lives In: Home Constitutional: denies: chills, diaphoresis, fatigue, fever, malaise, sweats, weakness, others EENTM: denies: blurred vision, double vision, ear bleeding, ear discharge, ear drainage, ear pain, ear ringing, eye pain, eye redness, hearing loss, mouth pain, mouth swelling, nasal discharge, nose bleeding, nose congestion, nose p ain, photophobia, tearing, throat pain, throat swelling, voice changes, others Respiratory: denies: cough, hemoptysis, orthopnea, SOB at rest, shortness of breath, SOB with excertion, stridor, wheezing, others Cardiovascular: reports: dizzy spells, diaphoresis, palpitations; denies: chest pain, Dyspnea on exertion, edema, irregular heart beat, left arm pain, lightheadedness, PND, syncope, others Gastrointestinal: denies: abdomen distended, abdominal pain, blood streaked bowels, constipated, diarrhea, dysphagia, difficulty swallowing, hematemesis, melena, nausea, poor appetite, poor fluid intake, rectal bleeding, rectal pain, vomiting, others Genitourinary: denies: burning, dysuria, flank pain, frequency, hematuria, incontinence, penile discharge, penile sore, pain, testicle pain, testicle swelling, urgency, others Neurological: denies: dizziness, fainting, headache, left sided numbness, left sided weakness, numbness, paresthesia, pre-existing deficit, right sided n umbness, right sided weakness, seizure, speech problems, tingling, tremors, weakness, others Musculoskeletal: denies: back pain, gout, joint pain, joint swelling, muscle pain, muscle stiffness, neck pain, others Integumetry: denies: bruises, change in color, change in hair/nails, dryness, laceration, lesions, lumps, rash, wounds, others Allergic/Immunocompromised: denies: Difficulty Healing, Frequent Infections, Hives, Itching, others Hematologic/Lymphatic: denies: anemia, blood clots, easy bleeding, easy bruising, swollen glands, others Endocrine: denies: excessive hunger, excessive sweating, excessive thirst, excessive urination, flushing, intolerance to cold, intolerance to heat, unexplained weight gain, unexplained weight loss, others Psychiatric: denies: anxiety, bipolar disorder, depression, hopeless, panic disorder, schizophrenia, sleepless, suicidal, others Physical Exam General Appearance: No Apparent Distress, Normal HEENT: Normal ENT Inspection, Pharynx Normal, TMs Normal Neck: Full Range of Motion, Non-Tender, Normal, Normal Inspection Respiratory: Chest Non-Tender, Lungs Clear, No Accessory Muscle Use, No Respiratory Distress, Normal Breath Sounds Cardiovascular: No Edema, No JVD, No Murmur, No Gallop, Normal Peripheral Pulses, Regular Rate/Rhythm Breast Exam: Deferred Gastrointestinal: No Organomegaly, Non Tender, No Pulsatile Mass, Normal Bowel Sounds, Soft Genitalia: Deferred Pelvic: Deferred Rectal: Deferred Extremities: No calf tenderness, Normal capillary refill, Normal inspection, Normal range of motion, Non-tender, No pedal edema Musculoskeletal : Apperance: Normal Neurologic: Alert, 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 Was a procedure done?: No CP Differential Dx Differential Diagnosis: Angina, Anxiety / Panic Attack, Electrolyte Disorder, Pacemaker Malfunction Differential Diagnosis: CHF Differential Diagnosis: Angina, Chest Wall Pain, Costochondritis, Esophageal reflux/spasm, Gastritis, Myocardial Infarction X-Ray, Labs, Meds, VS Vital Signs Date Time Temp Pulse Resp B/P (MAP) Pulse Ox O2 Delivery O2 Flow Rate FiO2 10/31/24 01:00 78 16 125/76 (92) 96 10/31/24 00:00 79 10/31/24 00:00 97.9 80 14 130/88 (102) 97 97.9 10/31/24 00:00 Room Air* 0 21 10/30/24 23:17 98.7 87 18 142/95 (111) 98 10/30/24 23:14 76 Lab Test 10/31/24 00:24 10/30/24 23:30 Range/Units Troponin I High Sensitivity 3 L 3 L </=54 ng/L White Blood Count 7.9 4.4-10.8 10^3/uL Red Blood Count 5.09 4.5-5.90 10^6/uL Hemoglobin 17.2 13.5-17.5 g/dL Hematocrit 50.8 41.0-53.0 % Mean Corpuscular Volume 99.8 80.0-100.0 fL Mean Corpuscular Hemoglobin 33.7 H 28.0-32.0 pg Mean Corpuscular Hemoglobin Concent 33.8 32.0-36.0 g/dL Red Cell Distribution Width 14.8 H 11.8-14.3 % Platelet Count 171 140-450 10^3/uL Mean Platelet Volume 8.8 6.9-10.8 fL Neutrophils (%) (Auto) 70.6 37.0-80.0 % Lymphocytes (%) (Auto) 16.1 10.0-50.0 % Monocytes (%) (Auto) 11.7 0.0-12.0 % Eosinophils (%) (Auto) 1.3 0.0-7.0 % Basophils (%) (Auto) 0.3 0.0-2.0 % Neutrophils # (Auto) 5.6 1.6-8.6 10 ^3/uL Lymphocytes # (Auto) 1.3 0.4-5.4 10 ^3/uL Monocytes # (Auto) 0.9 0-1.3 10 ^3/uL Eosinophils # (Auto) 0.1 0-0.8 10 ^3/uL Basophils # (Auto) 0 0-0.2 10 ^3/uL Nucleated Red Blood Cells 0.0 % Prothrombin Time 10.6 9.3-11.8 sec Prothrombin Time INR 1.00 0.9-1.15 Activated Partial Thromboplast Time 27.1 24.5-34.5 SEC Sodium Level 142 136-145 mmol/L Potassium Level 3.8 3.5-5.1 mmol/L Chloride Level 110 H 98-107 mmol/L Carbon Dioxide Level 17 L 20-31 mmol/L Anion Gap 15 5-15 Blood Urea Nitrogen 18 9-23 mg/dL Creatinine 0.99 0.700-1.30 mg/dL Glomerular Filtration Rate Calc 79 >90 mL/min BUN/Creatinine Ratio 18.2 10.0-20.0 Serum Glucose 90 74-106 mg/dL Calcium Level 9.4 8.7-10.4 mg/dL Magnesium Level 2.2 1.6-2.6 mg/dL Total Bilirubin 0.3 0.2-1.0 mg/dL Aspartate Amino Transferase (AST) 22 13-40 U/L Alanine Aminotransferase (ALT) 12 7-40 U/L Alkaline Phosphatase 75 46-116 U/L Total Protein 7.0 5.7-8.2 g/dL Albumin 4.3 3.2-4.8 g/dL Time of 1ST Reevaluation: 23:28 Reevaluation 1ST: Unchanged Time of 2ND Reevaluation: 00:30 Reevaluation 2ND: Improved Patient Education/Counseling: Diagnosis, Treatment Family Education/Counseling: No Family Present Departure 1 Departure Time of Disposition: 00:30 Impression: Primary Impression: Palpitations Disposition: 01 HOME / SELF CARE / HOMELESS Condition: Stable Discharged With: Self Critical Care Note Critical Care Time?: Yes (35 min-critical care time only) Stability Stability form required: No Heart Score Heart Score: Heart Score Response (Comments) Value History Moderate Suspicious 1 EKG Repolarization Disturb 1 Age >65 2 Risk Factors >3 or Hx ASHD 2 Troponin Normal limit 0 Total 6 I personally scribed for KESHAV LUEVANO MD ([email or web address]) on 10/30/24 at 23:32. Electronically submitted by Taj Deluca ([email or web address]). KESHAV LUEVANO MD Oct 30, 2024 23:32
[2024-10-30 23:47] LABS: Basophils # (auto) 0 10 ^3/uL (0-0.2); Basophils % (auto) 0.3 % (0.0-2.0); Eosinophils # (auto) 0.1 10 ^3/uL (0-0.8); Eosinophils % (auto) 1.3 % (0.0-7.0); Hematocrit 50.8 % (41.0-53.0); Hemoglobin 17.2 g/dL (13.5-17.5); Lymphocytes # (auto) 1.3 10 ^3/uL (0.4-5.4); Lymphocytes % (auto) 16.1 % (10.0-50.0); Mean Corpuscular Hemoglobin 33.7 pg (28.0-32.0); Mean Corpuscular Hgb Conc. 33.8 g/dL (32.0-36.0); Mean Corpuscular Volume 99.8 fL (80.0-100.0); Monocytes # (auto) 0.9 10 ^3/uL (0-1.3); Monocytes % (auto) 11.7 % (0.0-12.0); Neutrophils # (auto) 5.6 10 ^3/uL (1.6-8.6); Neutrophils % (auto) 70.6 % (37.0-80.0); Platelet Count (auto) 171 10^3/uL (140-450); Red Blood Cells 5.09 10^6/uL (4.5-5.90); Red Cell Distribution Width 14.8 % (11.8-14.3); White Blood Cell 7.9 10^3/uL (4.4-10.8)
[2024-10-30 23:59] LABS: Alanine Aminotransferase 12 U/L (7-40); Albumin 4.3 g/dL (3.2-4.8); Alkaline Phosphatase 75 U/L (46-116); Anion Gap 15 (5-15); Aspartate Aminotransferase 22 U/L (13-40); BUN/Creatinine Ratio 18.2 (10.0-20.0); Bilirubin, Total 0.3 mg/dL (0.2-1.0); Blood Urea Nitrogen 18 mg/dL (9-23); Calcium 9.4 mg/dL (8.7-10.4); Carbon Dioxide 17 mmol/L (20-31); Chloride 110 mmol/L (98-107); Glucose 90 mg/dL (74-106); Magnesium 2.2 mg/dL (1.6-2.6); Potassium 3.8 mmol/L (3.5-5.1); Sodium 142 mmol/L (136-145)
[2024-10-31] VITALS: TEMP 97.9
[2024-10-31 00:03] LABS: Partial Thromboplastin Time 27.1 SEC (24.5-34.5); Prothrombin Time 10.6 sec (9.3-11.8)
[2024-10-31 01:00] VITALS: BP 125/76; PULSE 78; RESP 16; O2SAT 96
--- NOTE | 2024-11-02 09:48 | ECG ---
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
== END 2024-10-31 01:56 | disposition home or self-care (01) ==
LOC: EDUNIT# 23:14 → ER 23:14 → EDBD 23:14 → ER 10-31 01:56
DX: R00.2 Palpitations (principal); R61 Generalized hyperhidrosis; I10 Essential (primary) hypertension; E07.9 Disorder of thyroid, unspecified; E78.5 Hyperlipidemia, unspecified; D69.6 Thrombocytopenia, unspecified; Z79.82 Long term (current) use of aspirin; Z79.899 Other long term (current) drug therapy; Z95.1 Presence of aortocoronary bypass graft; Z95.5 Presence of coronary angioplasty implant and graft; Z98.890 Other specified postprocedural states
CPT/HCPCS: 36415; 80053; 83735; 84484; 85025; 85610; 85730; 93005

== ENCOUNTER 2024-12-04 13:15 | Emergency (ER) | payer OTHER ==
[~2024-12-04] VITALS: Ht 175.3 cm; Wt 81.0 kg
[2024-12-04 13:55] LABS: Basophils # (auto) 0 10 ^3/uL (0-0.2); Eosinophils # (auto) 0.2 10 ^3/uL (0-0.8); Neutrophils # (auto) 4.7 10 ^3/uL (1.6-8.6); Red Cell Distribution Width 14.4 % (11.8-14.3); White Blood Cell 6.4 10^3/uL (4.4-10.8)
[2024-12-04 13:58] LABS: Basophils % (auto) 0.5 % (0.0-2.0); Hematocrit 53.7 % (41.0-53.0); Hemoglobin 18.7 g/dL (13.5-17.5); Lymphocytes # (auto) 0.8 10 ^3/uL (0.4-5.4); Lymphocytes % (auto) 13.2 % (10.0-50.0); Mean Corpuscular Hemoglobin 34.7 pg (28.0-32.0); Mean Corpuscular Hgb Conc. 34.9 g/dL (32.0-36.0); Mean Corpuscular Volume 99.3 fL (80.0-100.0); Monocytes # (auto) 0.7 10 ^3/uL (0-1.3); Monocytes % (auto) 10.2 % (0.0-12.0); Neutrophils % (auto) 73.1 % (37.0-80.0); Nucleated Red Blood Cells % 0.1 %; Platelet Count (auto) 187 10^3/uL (140-450)
[2024-12-04 13:59] VITALS: BP 119/86; RESP 18; O2SAT 95
--- NOTE | 2024-12-04 14:13 | DVH ---
EXAM: XY CHEST PORTABLE Indication: cp Technique: Single frontal view of the chest was obtained Comparison: XY CHEST PORTABLE on DOS: 10/13/24, XY CHEST PORTABLE on DOS: 07/29/23, XY CHEST PORTABLE on DOS: 06/11/23, XY CHEST PORTABLE on DOS: 04/21/23, XY CHEST PORTABLE on DOS: 04/02/23 FINDINGS: Lines and Tubes: None Lungs: No focal consolidation. Pleura: No effusion. No pneumothorax. Cardiomediastinal contours: Unremarkable. Large hiatal hernia. Bones: No acute osseous abnormality. IMPRESSION: Large hiatal hernia.No acute cardiopulmonary disease.
[2024-12-04 14:16] LABS: Alanine Aminotransferase 24 U/L (7-40); Alkaline Phosphatase 94 U/L (46-116); Anion Gap 10 (5-15); BUN/Creatinine Ratio 23.4 (10.0-20.0); Calcium 9.8 mg/dL (8.7-10.4); Carbon Dioxide 21 mmol/L (20-31); Potassium 4.2 mmol/L (3.5-5.1); Sodium 143 mmol/L (136-145)
[2024-12-04 14:17] LABS: Albumin 4.5 g/dL (3.2-4.8); Total Protein 7.3 g/dL (5.7-8.2)
[2024-12-04 14:26] LABS: Blood Urea Nitrogen 30 mg/dL (9-23); Chloride 112 mmol/L (98-107); Glucose 127 mg/dL (74-106)
[2024-12-04 14:27] LABS: Bilirubin, Total 0.3 mg/dL (0.2-1.0)
[2024-12-04 14:29] VITALS: PULSE 95
--- NOTE | 2024-12-04 14:36 | ED.PDOC ---
HPI Comments HPI: Initial Vital Signs: Temp : BP: HR: RR: SpO2: Past Medical History: HTN, hiatal hernias Past Surgical History: Denies Social History: Denies smoking, ETOH, or drug use. Medications: METOPROL Allergies: NKDA Chief Complaint: Chest Pain Time Seen by MD: 14:12 Primary Care Provider: UNKNOWN Reviewed Notes: Nurses Notes, Medications, Allergies Allergies: Coded Allergies: [place] (Verified Allergy, Severe, Tingling and swelling of mouth, eyes tearing, 11/01/21) Atorvastatin (Verified Allergy, Unknown, 08/15/24) Home Meds Active Scripts Tramadol HCl (Tramadol HCl) 50 Mg Tab, 50 MG PO BID, #20 TAB Prov:JUAN JOSÉ METZ 08/15/24 Metoprolol Succinate (Metoprolol Succinate Er) 25 Mg Tab, 0.5 TAB PO DAILY, #30 TAB 0 Refills Prov:BONG PERRY MD 04/03/23 Meclizine HCl (Meclizine 25) 25 Mg Tab, 25 MG PO DAILY for 10 Days, #10 TAB Prov:EDWARDO GILLIAM MD 02/01/22 Ranolazine (Ranexa) 500 Mg Tab, 500 MG PO BID for 30 Days, #60 TAB Prov:BONG PERRY MD 11/02/21 Reported Medications Ezetimibe (Zetia) 10 Mg Tab, 10 MG PO DAILY, TAB 05/23/22 Melatonin (KP MELATONIN) 3 Mg Tab, 10 MG PO QPM, TAB 05/23/22 Cetirizine Hcl (Kls Aller-En) 10 Mg Tab, 10 MG PO DAILY, TAB 05/23/22 Isosorbide Mononitrate (Isosorbide Mononitrate Er) 30 Mg Tab, 30 MG PO DAILY, TAB 05/23/22 Artificial Tear Solution (ARTIFICIAL TEARS) Tears [place], 2 DROP EACHEYE QIDPRN for DRY EYES, ML 05/23/22 Pravastatin Sodium (PRAVACHOL TABLET) 20 Mg Tb, 80 MG PO HS, TAB 05/23/22 Dicyclomine Hcl (Dicyclomine Hcl) 20 Mg Tab, 20 MG PO QID, TAB 05/23/22 Pantoprazole Sodium Sesquihydr (Protonix) 40 Mg Tab, 40 MG PO BID, #30 TAB 05/23/22 Aspirin (Aspir-81) 81 Mg Tab, 81 MG PO DAILY, TAB 05/23/22 Nitroglycerin (NTROSTAT SUBLINGUAL) 0.4 Mg Sl, 0.4 MG SL PRN PRN for FOR CHEST PAIN *MAY REPEAT EVERY 5 MINUTES X 3 TOTAL IF NO RELIEF, INITIATE ANALGESIC THERAPY. NOTIFY PHYSICIAN *Do not crush. 04/09/21 Information Source: Patient Mode of Arrival: Ambulatory Was a procedure done? Was a procedure done?: No X-Ray, Labs, Meds, VS Vital Signs Date Time Temp Pulse Resp B/P (MAP) Pulse Ox O2 Delivery O2 Flow Rate FiO2 12/04/24 14:29 95 12/04/24 13:59 98.1 83 18 119/86 (97) 95 12/04/24 13:18 142 Lab Test 12/04/24 14:32 12/04/24 13:30 Range/Units Troponin I High Sensitivity 3 L 4 </=54 ng/L White Blood Count 6.4 4.4-10.8 10^3/uL Red Blood Count 5.40 4.5-5.90 10^6/uL Hemoglobin 18.7 H 13.5-17.5 g/dL Hematocrit 53.7 H 41.0-53.0 % Mean Corpuscular Volume 99.3 80.0-100.0 fL Mean Corpuscular Hemoglobin 34.7 H 28.0-32.0 pg Mean Corpuscular Hemoglobin Concent 34.9 32.0-36.0 g/dL Red Cell Distribution Width 14.4 H 11.8-14.3 % Platelet Count 187 140-450 10^3/uL Mean Platelet Volume 8.6 6.9-10.8 fL Neutrophils (%) (Auto) 73.1 37.0-80.0 % Lymphocytes (%) (Auto) 13.2 10.0-50.0 % Monocytes (%) (Auto) 10.2 0.0-12.0 % Eosinophils (%) (Auto) 3.0 0.0-7.0 % Basophils (%) (Auto) 0.5 0.0-2.0 % Neutrophils # (Auto) 4.7 1.6-8.6 10 ^3/uL Lymphocytes # (Auto) 0.8 0.4-5.4 10 ^3/uL Monocytes # (Auto) 0.7 0-1.3 10 ^3/uL Eosinophils # (Auto) 0.2 0-0.8 10 ^3/uL Basophils # (Auto) 0 0-0.2 10 ^3/uL Nucleated Red Blood Cells 0.1 % Sodium Level 143 136-145 mmol/L Potassium Level 4.2 3.5-5.1 mmol/L Chloride Level 112 H 98-107 mmol/L Carbon Dioxide Level 21 20-31 mmol/L Anion Gap 10 5-15 Blood Urea Nitrogen 30 H 9-23 mg/dL Creatinine 1.28 0.700-1.30 mg/dL Glomerular Filtration Rate Calc 58 >90 mL/min BUN/Creatinine Ratio 23.4 H 10.0-20.0 Serum Glucose 127 H 74-106 mg/dL Calcium Level 9.8 8.7-10.4 mg/dL Total Bilirubin 0.3 0.2-1.0 mg/dL Aspartate Amino Transferase (AST) 37 13-40 U/L Alanine Aminotransferase (ALT) 24 7-40 U/L Alkaline Phosphatase 94 46-116 U/L Total Protein 7.3 5.7-8.2 g/dL Albumin 4.5 3.2-4.8 g/dL [place] [address] Ph: [phone] DIAGNOSTIC IMAGING Diagnostic Imaging Report : [id number] Signed PATIENT: CARSON VELAZQUEZ ACCT: [id number] UNIT: [id number] : 1950 LOC: ER ROOM / BED: / AGE / SEX: 74 / M ADM STATUS: REG ER SERVICE 1351 ORDERING PHYSICIAN: JULIA LEA DO PROCEDURE(s): CXRP - CHEST PORTABLE REASON: cp ORDER NUMBER(s): [id number], ACCESSION NUMBER(s): [id number] EXAM: XY CHEST PORTABLE Indication: cp Technique: Single frontal view of the chest was obtained Comparison: XY CHEST PORTABLE on DOS: 10/13/24, XY CHEST PORTABLE on DOS: 07/29/23, XY CHEST PORTABLE on DOS: 06/11/23, XY CHEST PORTABLE on DOS: 04/21/23, XY CHEST PORTABLE on DOS: 04/02/23 FINDINGS: Lines and Tubes: None Lungs: No focal consolidation. Pleura: No effusion. No pneumothorax. Cardiomediastinal contours: Unremarkable. Large hiatal hernia. Bones: No acute osseous abnormality. IMPRESSION: Large hiatal hernia.No acute cardiopulmonary disease. ATED BY: ARIANNA FELDMAN MD DICTATED DATE/TIME: 12/04/241411 SIGNED BY: ARIANNA FELDMAN MD SIGNED DATE/TIME: 12/04/24 141 CC: Time of 1ST Reevaluation: 14:42 Reevaluation 1ST: Unchanged Additional Information [place] [id number] Ph: [phone] DIAGNOSTIC IMAGING Diagnostic Imaging Report : [id number] Signed PATIENT: CARSON VELAZQUEZ ACCT: [id number] UNIT: [id number] : 1950 LOC: ER ROOM / BED: / AGE / SEX: 74 / M ADM STATUS: REG ER SERVICE 135 ORDERING PHYSICIAN: JULIA LEA DO PROCEDURE(s): CXRP - CHEST PORTABLE REASON: cp ORDER NUMBER(s): [id number], ACCESSION NUMBER(s): [id number] EXAM: XY CHEST PORTABLE Indication: cp Technique: Single frontal view of the chest was obtained Comparison: XY CHEST PORTABLE on DOS: 10/13/24, XY CHEST PORTABLE on DOS: 07/29/23, XY CHEST PORTABLE on DOS: 06/11/23, XY CHEST PORTABLE on DOS: 04/21/23, XY CHEST PORTABLE on DOS: 04/02/23 FINDINGS: Lines and Tubes: None Lungs: No focal consolidation. Pleura: No effusion. No pneumothorax. Cardiomediastinal contours: Unremarkable. Large hiatal hernia. Bones: No acute osseous abnormality. IMPRESSION: Large hiatal hernia.No acute cardiopulmonary disease. ATED BY: ARIANNA FELDMAN MD DICTATED DATE/TIME: 12/04/241411 SIGNED BY: ARIANNA FELDMAN MD SIGNED DATE/TIME: 12/04/241411 CC: Departure 1 Departure Time of Disposition: 16:55 Impression: Primary Impression: Palpitations Additional Impression: Hiatal hernia Disposition: HOME / SELF CARE / HOMELESS Condition: Stable Additional Instructions: Additional discharge instructions: You MUST follow-up with your primary care/family doctor in 1 to 2 days. If you are unable to see your primary care/family doctor, please return to our emergency room for re-assessment and re-evaluation in 1 to 2 days. Return to the emergency room here in our facility or to the nearest ER [facility] if your symptoms change or worsen. CONSULTATIONS: you MUST Follow-up for consultation as soon as possible with: -cardiology in 1-2 days. Please call for appointment. Follow up with gastro enterology for your hiatal hernia. You MUST call the consultants office yourself to make an appointment. You may need to arrange that through your insurance and/or your primary/family doctor. If you are unable to see the salesforce consultant in 1 to 2 days, you must return to our emergency room (or any other ER of your choice) for re-assessment and re- evaluation. Adequate fluid hydration. Please start taking metoprolol as prescribed. Discharged With: Self Critical Care Note Critical Care Time?: No Stability Stability form required: No Heart Score Heart Score: Heart Score Response (Comments) Value Age >65 2 Total 2 I personally scribed for JULIA LEA DO ([email or web address]) on 12/04/24 at 14:36. Electronically submitted by Susannah Ruiz ([email or web address]). I personally scribed for JULIA LEA DO ([email or web address]) on 12/04/24 at 15:31. Electronically submitted by Susannah Ruiz ([email or web address]). JULIA LEA DO Dec 04, 2024 14:36
[2024-12-04 14:46] LABS: Aspartate Aminotransferase 37 U/L (13-40)
--- NOTE | 2024-12-04 18:51 | ECG ---
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
--- NOTE | 2024-12-06 07:13 | ECG ---
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
== END 2024-12-04 18:53 | disposition home or self-care (01) ==
LOC: ER 13:17
DX: R00.2 Palpitations (principal); K44.9 Diaphragmatic hernia without obstruction or gangrene; Z79.899 Other long term (current) drug therapy; Z79.84 Long term (current) use of oral hypoglycemic drugs; Z88.8 Allergy status to other drugs, medicaments and biological substances; Z88.6 Allergy status to analgesic agent
CPT/HCPCS: 36415; 71045; 80053; 84484; 85025; 93005

== ENCOUNTER → 2024-12-07 | Outpatient (CLI) | payer OTHER ==
[2024-12-07 11:15] LABS: Prostate Specific Antigen 0.27 ng/mL (0.0-4.0)
== END | disposition home or self-care (01) ==
LOC: LAB 08:18
PROVIDERS: ATTEND Urology
DX: C61 Malignant neoplasm of prostate (principal); I11.0 Hypertensive heart disease with heart failure; I50.32 Chronic diastolic (congestive) heart failure; I25.9 Chronic ischemic heart disease, unspecified
CPT/HCPCS: 36415; 82306; 82607; 83036; 84153

== ENCOUNTER 2025-01-24 14:02 | Inpatient (IN) | payer OTHER ==
[~2025-01-24] VITALS: Ht 175.3 cm; Wt 88.9 kg
--- NOTE | 2025-01-24 14:32 | ED.PDOC ---
HPI Comments 74 year old male OBIE presents to the ED with chief complaint of chest pain. Patient reports that he has been experiencing sudden onset substernal, crushing chest pain with associated diaphoresis since an hour ago. Patient relays that he had taken 3 doses of 81mg ASA and a dose of NTG prior to EMS arrival with no relief noted to pain. EMS states they provided 150mcg of Fentanyl and another dose of ASA and NTG with some relief noted, now being a 2/10 chest pain. 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 Patient denies any numbness, weakness, SOB, dizziness, headache, or blurred vision. Chief Complaint: Chest Pain Time Seen by MD: 14:28 Primary Care Provider: JOE Reviewed Notes: Nurses Notes, Insole Coverer Notes, Medications, Allergies Allergies: Coded Allergies: [place] (Verified Allergy, Severe, Tingling and swelling of mouth, eyes tearing, 11/01/21) Atorvastatin (Verified Allergy, Unknown, 08/15/24) Home Meds Active Scripts Tramadol HCl (Tramadol HCl) 50 Mg Tab, 50 MG PO BID, #20 TAB Prov:JUAN JOSÉ METZ 08/15/24 Metoprolol Succinate (Metoprolol Succinate Er) 25 Mg Tab, 0.5 TAB PO DAILY, #30 TAB 0 Refills Prov:BONG PERRY MD 04/03/23 Meclizine HCl (Meclizine 25) 25 Mg Tab, 25 MG PO DAILY for 10 Days, #10 TAB Prov:EDWARDO GILLIAM MD 02/01/22 Ranolazine (Ranexa) 500 Mg Tab, 500 MG PO BID for 30 Days, #60 TAB Prov:BONG PERRY MD 11/02/21 Reported Medications Ezetimibe (Zetia) 10 Mg Tab, 10 MG PO DAILY, TAB 05/23/22 Melatonin ( MELATONIN) 3 Mg Tab, 10 MG PO QPM, TAB 05/23/22 Cetirizine Hcl (Kls Aller-En) 10 Mg Tab, 10 MG PO DAILY, TAB 05/23/22 Isosorbide Mononitrate (Isosorbide Mononitrate Er) 30 Mg Tab, 30 MG PO DAILY, TAB 05/23/22 Artificial Tear Solution (ARTIFICIAL TEARS) Tears [place], 2 DROP EACHEYE QIDPRN for DRY EYES, ML 05/23/22 Pravastatin Sodium (PRAVACHOL TABLET) 20 Mg Tb, 80 MG PO HS, TAB 05/23/22 Dicyclomine Hcl (Dicyclomine Hcl) 20 Mg Tab, 20 MG PO QID, TAB 05/23/22 Pantoprazole Sodium Sesquihydr (Protonix) 40 Mg Tab, 40 MG PO BID, #30 TAB 05/23/22 Aspirin (Aspir-81) 81 Mg Tab, 81 MG PO DAILY, TAB 05/23/22 Nitroglycerin (NTROSTAT SUBLINGUAL) 0.4 Mg Sl, 0.4 MG SL PRN PRN for FOR CHEST PAIN *MAY REPEAT EVERY 5 MINUTES X 3 TOTAL IF NO RELIEF, INITIATE ANALGESIC THERAPY. NOTIFY PHYSICIAN *Do not crush. 04/09/21 Information Source: Patient, Emergency Med Personnel Mode of Arrival: EMS Severity: Moderate Timing: Hours Duration: Since onset Prehospital treatment: ASA, NTG, Pain Meds (150mcg of Fentanyl) Location: Substernal Radiation: No Radiation Quality: Crushing Onset: At Rest Cardiac Risk Factors: Family History, Hyperlipidemia, HTN PE Risk Factors: None History of: Similar pain in past, NC, Aortic Disease Associated Signs and Symptoms: Diaphoresis Past Medical History PAST MEDICAL HISTORY: CAD, Cancer, High Lipids, HTN, NC, Thyroid Surgical History: CABG, Hernia Repair, PTCA Family History Family History: Reviewed,noncontributory to illness Social History Smoker: Non-Smoker, Quit Greater Than 1 Year Alcohol: Occasionally Drugs: Denies Drug Use, Marijuana Lives In: Home Constitutional: reports: diaphoresis; denies: chills, fatigue, fever, malaise, sweats, weakness, others EENTM: denies: blurred vision, double vision, ear bleeding, ear discharge, ear drainage, ear pain, ear ringing, eye pain, eye redness, hearing loss, mouth pain, mouth swelling, nasal discharge, nose bleeding, nose congestion, nose pain, photophobia, tearing, throat pain, throat swelling, voice changes, others Respiratory: denies: cough, hemoptysis, orthopnea, SOB at rest, shortness of breath, SOB with excertion, stridor, wheezing, others Cardiovascular: reports: chest pain; denies: dizzy spells, diaphoresis, Dyspnea on exertion, edema, irregular heart beat, left arm pain, lightheadedness, palpitations, PND, syncope, others Gastrointestinal: denies: abdomen distended, abdominal pain, blood streaked bowels, constipated, diarrhea, dysphagia, difficulty swallowing, hematemesis, melena, nausea, poor appetite, poor fluid intake, rectal bleeding, rectal pain, vomiting, others Genitourinary: denies: burning, dysuria, flank pain, frequency, hematuria, incontinence, penile discharge, penile sore, pain, testicle pain, testicle sw elling, urgency, others Neurological: denies: dizziness, fainting, headache, left sided numbness, left sided weakness, numbness, paresthesia, pre-existing deficit, right sided numbness, right sided weakness, seizure, speech problems, tingling, tremors, weakness, others Musculoskeletal: denies: back pain, gout, joint pain, joint swelling, muscle pain, muscle stiffness, neck pain, others Integumetry: denies: bruises, change in color, change in hair/nails, dryness, laceration, lesions, lumps, rash, wounds, others Allergic/Immunocompromised: denies: Difficulty Healing, Frequent Infections, Hives, Itching, others Hematologic/Lymphatic: denies: anemia, blood clots, easy bleeding, easy bruising, swollen glands, others Endocrine: denies: excessive hunger, excessive sweating, excessive thirst, excessive urination, flushing, intolerance to cold, intolerance to heat, unexplained weight gain, unexplained weight loss, others Psychiatric: denies: anxiety, bipolar disorder, depression, hopeless, panic disorder, schizophrenia, sleepless, suicidal, others All Other Systems: Reviewed and Negative Physical Exam General Appearance: No Apparent Distress, Normal HEENT: Normal ENT Inspection, PERRL/EOMI Neck: Full Range of Motion, Non-Tender, Normal, Normal Inspection Respiratory: Chest Non-Tender, Lungs Clear, No Accessory Muscle Use, No Respiratory Distress, Normal Breath Sounds Cardiovascular: No Edema, No JVD, No Murmur, No Gallop, Normal Peripheral Pulses, Regular Rate/Rhythm Breast Exam: Deferred Gastrointestinal: No Organomegaly, Non Tender, No Pulsatile Mass, Normal Bowel Sounds, Soft Genitalia: Deferred Pelvic: Deferred Rectal: Deferred Extremities: No calf tenderness, Normal capillary refill, Normal inspection, Normal range of motion, Non-tender, No pedal edema Musculoskeletal : Apperance: Normal Neurologic: Alert, repairer kiln car II-XII nml as Tested, No Motor Deficits, Normal Affect, Normal Mood, No Sensory Deficits Cerebellar Function: Normal Reflexes: Normal Skin: Dry, Normal Color, Warm Lymphatic: No Adenopathy Was a procedure done? Was a procedure done?: No CP Differential Dx Differential Diagnosis: NC, PAC's Differential Diagnosis: HTN Essential, HTN Accelerated Differential Diagnosis: Myocardial Infarction, Pericarditis X-Ray, Labs, Meds, VS Vital Signs Date Time Temp Pulse Resp B/P (MAP) Pulse Ox O2 Delivery O2 Flow Rate FiO2 01/24/25 16:45 120/79 01/24/25 16:15 67 18 126/78 01/24/25 15:45 174/84 01/24/25 15:45 65 17 124/74 01/24/25 15:29 57 01/24/25 15:17 97.5 60 18 124/74 (91) 97 97.5 01/24/25 15:17 60 60 97 Room Air 01/24/25 14:09 56 01/24/25 14:02 98.2 71 18 142/91 (108) 100 Lab Test 01/24/25 15:20 01/24/25 14:19 Range/Units Troponin I High Sensitivity 24 7 </=54 ng/L White Blood Count 7.0 4.4-10.8 10^3/uL Red Blood Count 4.79 4.5-5.90 10^6/uL Hemoglobin 16.0 13.5-17.5 g/dL Hematocrit 47.5 41.0-53.0 % Mean Corpuscular Volume 99.2 80.0-100.0 fL Mean Corpuscular Hemoglobin 33.5 H 28.0-32.0 pg Mean Corpuscular Hemoglobin Concent 33.7 32.0-36.0 g/dL Red Cell Distribution Width 13.7 11.8-14.3 % Platelet Count 147 140-450 10^3/uL Mean Platelet Volume 9.1 6.9-10.8 fL Neutrophils (%) (Auto) 73.8 37.0-80.0 % Lymphocytes (%) (Auto) 13.2 10.0-50.0 % Monocytes (%) (Auto) 10.7 0.0-12.0 % Eosinophils (%) (Auto) 1.7 0.0-7.0 % Basophils (%) (Auto) 0.6 0.0-2.0 % Neutrophils # (Auto) 5.2 1.6-8.6 10 ^3/uL Lymphocytes # (Auto) 0.9 0.4-5.4 10 ^3/uL Monocytes # (Auto) 0.8 0-1.3 10 ^3/uL Eosinophils # (Auto) 0.1 0-0.8 10 ^3/uL Basophils # (Auto) 0 0-0.2 10 ^3/uL Nucleated Red Blood Cells 0.1 % Sodium Level 143 136-145 mmol/L Potassium Level 4.6 3.5-5.1 mmol/L Chloride Level 112 H 98-107 mmol/L Carbon Dioxide Level 23 20-31 mmol/L Anion Gap 8 5-15 Blood Urea Nitrogen 29 H 9-23 mg/dL Creatinine 1.05 0.700-1.30 mg/dL Glomerular Filtration Rate Calc 74 >90 mL/min BUN/Creatinine Ratio 27.6 H 10.0-20.0 Serum Glucose 112 H 74-106 mg/dL Calcium Level 8.8 8.7-10.4 mg/dL Total Bilirubin 0.6 0.2-1.0 mg/dL Aspartate Amino Transferase (AST) 34 13-40 U/L Alanine Aminotransferase (ALT) 27 7-40 U/L Alkaline Phosphatase 70 46-116 U/L Total Protein 6.3 5.7-8.2 g/dL Albumin 4.1 3.2-4.8 g/dL Current Medications Medications (Trade) Dose Ordered Sig/Andrea Route Start Time Stop Time Status Last Admin Morphine Sulfate 4 mg ONCE ONCE IV 01/24/25 15:45 01/24/25 15:46 DC 01/24/25 15:45 Nitroglycerin (Ntrostat Sublingual) 0.4 mg ONCE ONCE SL 01/24/25 15:45 01/24/25 15:46 DC 01/24/25 15:45 Time of 1ST Reevaluation: 15:28 Reevaluation 1ST: Unchanged Patient Education/Counseling: Diagnosis, Treatment Family Education/Counseling: No Family Present Additional Information The following tests were ordered, and results were reviewed by me: Troponin, CBC, CMP, CXR Additional Information was gathered from interviewing the following independent historians: EMS I reviewed and agreed with the following test results read by other providers: CXR I discussed treatment and results with medical personnel. Departure 1 Departure Time of Disposition: 17:14 (Patient presented with chest pain that was concerning for possible STEMI, ACS, PE, Pneumonia, Muscle Strain, COPD, Dissection. Data: 1. I ordered and reviewed the result of at least 3 labs including a CBC, BMP, and Troponin. 2. I independently interpreted the following tests: EKG which shows sinus arrhythmia and Chest X-ray which shows benign chest.Risk:This patient has a high risk of morbidity due to further diagnostic testing or treatment and may suffer from an acute cardiac or respiratory disorder. Workup reveals concern for ACS and patient should be admitted for further workup and possible expert consultation. ) Impression: Primary Impression: Acute chest pain Disposition: ADMITTED INPATIENT Admit to: Med Surg Condition: Serious Critical Care Note Critical Care Time?: Yes Critical care comment: Acute chest pain Authorized and Performed by: Teofilo Tafoya MD Total critical care time: Approximately 35 minutes Due to a high probability of clinically significant, life threatening deterioration, the patient required my highest level of preparedness to intervene emergently and I personally spent this critical care time directly and personally managing the patient. This critical care time included obtaining a history; examining the patient; pulse oximetry; ordering and review of studies; arranging urgent treatment with development of a management plan; evaluation of patient's response to treatment; frequent reassessment; and, discussions with other providers. This critical care time was performed to assess and manage the high probability of imminent, life-threatening deterioration that could result in multi-organ failure. It was exclusive of separately billable procedures and treating other patients and teaching time. Please see my other sections and the rest of the note for further information on patient assessment and treatment. Stability Stability form required: No Heart Score Heart Score: Heart Score Response (Comments) Value History Highly Suspicious 2 EKG Normal 0 Age >65 2 Risk Factors >3 or Hx ASHD 2 Troponin Normal limit 0 Total 6 I personally scribed for TEOFILO TAFOYA MD ([email or web address]) on 01/24/25 at 14:32. Electronically submitted by Francisco Ortiz ([email or web address]). TEOFILO TAFOYA MD Jan 24, 2025 14:32
[2025-01-24 14:35] LABS: Basophils # (auto) 0 10 ^3/uL (0-0.2); Basophils % (auto) 0.6 % (0.0-2.0); Eosinophils # (auto) 0.1 10 ^3/uL (0-0.8); Eosinophils % (auto) 1.7 % (0.0-7.0); Hematocrit 47.5 % (41.0-53.0); Lymphocytes # (auto) 0.9 10 ^3/uL (0.4-5.4); Lymphocytes % (auto) 13.2 % (10.0-50.0); Mean Corpuscular Hemoglobin 33.5 pg (28.0-32.0); Mean Corpuscular Hgb Conc. 33.7 g/dL (32.0-36.0); Mean Corpuscular Volume 99.2 fL (80.0-100.0); Monocytes # (auto) 0.8 10 ^3/uL (0-1.3); Monocytes % (auto) 10.7 % (0.0-12.0); Neutrophils # (auto) 5.2 10 ^3/uL (1.6-8.6); Neutrophils % (auto) 73.8 % (37.0-80.0); Nucleated Red Blood Cells % 0.1 %; Platelet Count (auto) 147 10^3/uL (140-450); Red Blood Cells 4.79 10^6/uL (4.5-5.90); Red Cell Distribution Width 13.7 % (11.8-14.3)
[2025-01-24 14:49] LABS: Alanine Aminotransferase 27 U/L (7-40); Albumin 4.1 g/dL (3.2-4.8); Alkaline Phosphatase 70 U/L (46-116); Anion Gap 8 (5-15); Aspartate Aminotransferase 34 U/L (13-40); BUN/Creatinine Ratio 27.6 (10.0-20.0); Calcium 8.8 mg/dL (8.7-10.4); Carbon Dioxide 23 mmol/L (20-31); Potassium 4.6 mmol/L (3.5-5.1); Sodium 143 mmol/L (136-145)
[2025-01-24 14:50] LABS: Bilirubin, Total 0.6 mg/dL (0.2-1.0); Total Protein 6.3 g/dL (5.7-8.2)
[2025-01-24 14:51] LABS: Blood Urea Nitrogen 29 mg/dL (9-23); Chloride 112 mmol/L (98-107); Glucose 112 mg/dL (74-106)
--- NOTE | 2025-01-24 15:37 | ECG ---
[facility] Test Date: 2025-01-24 Test Time: 15:29:41 Pat Name: CARSON VELAZQUEZ Department: ER Room: 0221T Gender: M Behavioral Health Counselor: RICKEY : 1950 Requested By: MAHI CINTRON Order Number: [id number] Reading MD: Demetrio Lindsay Measurements Intervals [place] Rate: 57 P: 37 MO: 191 QRS: -71 QRSD: 151 T: 58 QT: 487 QTc: 475 Interpretive Statements Sinus rhythm Right bundle branch block Inferolateral infarct, old Electronically Signed On 01-30-2025 16:57:28 PST by Demetrio Lindsay Please click the below link to view image of tracing.
[2025-01-24] MEDS: NITROGLYCERIN 0.4 MG SL TAB SL ONE (15:45)
[2025-01-24] MEDS: MORPHINE SULFATE 4 MG/ML SYR/VIAL IV ONE (15:45)
--- NOTE | 2025-01-24 15:52 | DVH ---
CHEST RADIOGRAPH Indication: sob Technique: Single frontal view of the chest was obtained Comparison: XY CHEST PORTABLE on DOS: 12/04/24, XY CHEST PORTABLE on DOS: 10/13/24, XY CHEST PORTABLE o n DOS: 07/29/23 FINDINGS: Lines and Tubes: Sternal wire sutures in place. Air-fluid level in the hiatal hernia in the retrocar diac area. Lungs: No focal consolidation. Pleura: No effusion. No pneumothorax. Cardiomediastinal contours: Unremarkable Bones: No acute osseous abnormality. IMPRESSION: 1. Air-fluid level in the hiatal hernia in the retrocardiac area.
[2025-01-24] MEDS ORDERED: ACETAMINOPHEN 325 MG TAB PO PRN (19:15)
[2025-01-24] MEDS ORDERED: ONDANSETRON HCL 4 MG/2 ML VIAL IV PRN (19:15)
[2025-01-24 20:04] VITALS: O2SAT 96
[2025-01-24] MEDS: IOHEXOL 350 MG/ML 100ML IJ ONE (21:14)
--- NOTE | 2025-01-24 21:29 | DVHHP2 ---
History of Present Illness Reason for Visit: Chest pain History of Present Illness 64-year-old male history of SC status post CABG presents for evaluation of chest pain. Patient reports doing some work around the house and subsequently developing substernal pressure-like nonradiating chest pain. He also reports as sociated diaphoresis. No nausea or vomiting. Currently denies any symptoms. Past Medical History Hypertension,, thyroid dyslipidemia, gastric, CAD Past Surgical History Hernia repair PTCA, CABG Family History Noncontributory Smoke: Quit ALCOHOL: occassional Drugs: Marijuana Lives: with Family Review of Systems Review of Systems Review of systems are currently negative otherwise addressed in HPI. Allergies: Coded Allergies: [place] (Verified Allergy, Severe, Tingling and swelling of mouth, eyes tearing, 11/01/21) Atorvastatin (Verified Allergy, Unknown, 08/15/24) Medications Current Medications Medications Dose Ordered Sig/Andrea Route Start Time Stop Time Status Last Admin Dose Admin Levothyroxine Sodium 25 mcg QAM@0600 PO 01/25/25 06:00 Isosorbide Mononitrate 30 mg DAILY PO 01/25/25 10:00 Metoprolol Succinate 12.5 mg DAILY PO 01/25/25 10:00 Ranolazine 500 mg BID PO 01/24/25 22:00 Pravastatin Sodium 40 mg HS PO 01/24/25 22:00 Ondansetron HCl 4 mg Q4HP PRN IV 01/24/25 19:15 Acetaminophen 650 mg Q6HP PRN PO 01/24/25 19:15 Exam Vital Signs Vital Signs Date Time Temp Pulse Resp B/P (MAP) Pulse Ox O2 Delivery O2 Flow Rate FiO2 01/24/25 20:04 96 Room Air* 0 21 01/24/25 16:45 120/79 01/24/25 16:15 67 18 01/24/25 15:17 97.5 97.5 Exam Gen: 74-year-old male in mild distress Skin: Warm, dry, normal color and texture, no rash. HEENT: Normocephalic atraumatic, mucous membranes moist and pink. Neck: Cervical and supraclavicular nodes normal without enlargement, trachea is midline, thyroid gland is normal without masses. Pulmonary: Clear to auscultation and percussion bilaterally. Cardiac: Regular rate and rhythm. No murmur Abdomen: Soft, nontender, nondistended, bowel sounds present all 4 quadrants, no guarding, no rigidity, no organomegaly. Extremities: No cyanosis, clubbing, no edema Neuro: Cranial nerves II through XII grossly intact, normal affect and speech, no focal motor deficits. Labs/Xrays ORDERING PHYSICIAN: DULCE BOYKIN RESIDENT PROCEDURE(s): ECIDC - ECHO 2D MODE CARDIAC DOP REASON: palpitation ORDER NUMBER(s): [id number], ACCESSION NUMBER(s): [id number] APPROVED REPORT EXAM: Two-dimensional and M-mode echocardiogram with Doppler and color Doppler. Blood Pressure: 162/93 mmHg INDICATION Palpitations RISK FACTORS Height: 69, Weight: 193 DIMENSIONS LVDd 4.5 (3.8-5.7cm) LA (2D) 4.0 (1.9-4.0cm) Aortic Root 4.1 (2.0- 3.7cm) LVDs 3.4 (2.5-4.0cm) LA (MM) (1.9-4.0cm) Aortic Cusp Exc 1.5 (1.5- 2.0cm) EF (%) 50.0 (55-70%) Rt. Atrium 3.9 (1.9-4.0cm) Asc. Aorta 3.5 cm IVSd 1.1 (0.7-1.1cm) RV (D) (1.8-2.4cm) PWd 1.1 (0.7-1.1cm) Mitral Valve Mitral Mitral Stenosis E wave 0.51m/s MV Mean GR. mmHg A wave 0.91m/s MV Peak GR. 47mmHg E/A ratio 0.6 2D MVA cm2 DECEL Time 285ms PRESS 1/2 Time ms Aortic Valve Aortic Valve Aortic Stenosis V1 0.86m/s AO Mean GR. 2mmHg V2 0.97m/s AO Peak GR. 4mmHg LVOT Diameter 1.7 (1.8-2.4cm) Doppler JEANETTE 2.01cm2 Pulmonic Valve V2 1.01m/s Other Information Technically limited study due to body habitus and patient continued to talking all throughout exam. Conclusion Lower normal limits of left ventricular systolic function at 50%. There is a grade 1 diastolic dysfunction. Normal right ventricular size and dimension. Normal right ventricular systolic function. Normal biatrial size and dimension. The aortic valve is mildly thickened and sclerotic no significant stenosis or regurgitation. Normal mitral valve structure and function. Normal tricuspid valve structure and function. Pulmonary valve is grossly normal. No pericardial effusion. SIGNED BY: JAJA PETE MD SIGNED DATE/TIME: 09/10/24 1102 ORDERING PHYSICIAN: TEOFILO TAFOYA MD PROCEDURE(s): CXRP - CHEST PORTABLE REASON: sob ORDER NUMBER(s): [id number], ACCESSION NUMBER(s): [id number] CHEST RADIOGRAPH Indication: sob Technique: Single frontal view of the chest was obtained Comparison: XY CHEST PORTABLE on DOS: 12/04/24, XY CHEST PORTABLE on DOS: 10/13/24, XY CHEST PORTABLE on DOS: 07/29/23 FINDINGS: Lines and Tubes: Sternal wire sutures in place. Air-fluid level in the hiatal hernia in the retrocardiac area. Lungs: No focal consolidation. Pleura: No effusion. No pneumothorax. Cardiomediastinal contours: Unremarkable Bones: No acute osseous abnormality. IMPRESSION: 1. Air-fluid level in the hiatal hernia in the retrocardiac area. Labs Test 01/24/25 15:20 01/24/25 14:19 Range/Units Troponin I High Sensitivity 24 </=54 ng/L White Blood Count 7.0 4.4-10.8 10^3/uL Red Blood Count 4.79 4.5-5.90 10^6/uL Hemoglobin 16.0 13.5-17.5 g/dL Hematocrit 47.5 41.0-53.0 % Mean Corpuscular Volume 99.2 80.0-100.0 fL Mean Corpuscular Hemoglobin 33.5 H 28.0-32.0 pg Mean Corpuscular Hemoglobin Concent 33.7 32.0-36.0 g/dL Red Cell Distribution Width 13.7 11.8-14.3 % Platelet Count 147 140-450 10^3/uL Mean Platelet Volume 9.1 6.9-10.8 fL Neutrophils (%) (Auto) 73.8 37.0-80.0 % Lymphocytes (%) (Auto) 13.2 10.0-50.0 % Monocytes (%) (Auto) 10.7 0.0-12.0 % Eosinophils (%) (Auto) 1.7 0.0-7.0 % Basophils (%) (Auto) 0.6 0.0-2.0 % Neutrophils # (Auto) 5.2 1.6-8.6 10 ^3/uL Lymphocytes # (Auto) 0.9 0.4-5.4 10 ^3/uL Monocytes # (Auto) 0.8 0-1.3 10 ^3/uL Eosinophils # (Auto) 0.1 0-0.8 10 ^3/uL Basophils # (Auto) 0 0-0.2 10 ^3/uL Nucleated Red Blood Cells 0.1 % Sodium Level 143 136-145 mmol/L Potassium Level 4.6 3.5-5.1 mmol/L Chloride Level 112 H 98-107 mmol/L Carbon Dioxide Level 23 20-31 mmol/L Anion Gap 8 5-15 Blood Urea Nitrogen 29 H 9-23 mg/dL Creatinine 1.05 0.700-1.30 mg/dL Glomerular Filtration Rate Calc 74 >90 mL/min BUN/Creatinine Ratio 27.6 H 10.0-20.0 Serum Glucose 112 H 74-106 mg/dL Calcium Level 8.8 8.7-10.4 mg/dL Total Bilirubin 0.6 0.2-1.0 mg/dL Aspartate Amino Transferase (AST) 34 13-40 U/L Alanine Aminotransferase (ALT) 27 7-40 U/L Alkaline Phosphatase 70 46-116 U/L Total Protein 6.3 5.7-8.2 g/dL Albumin 4.1 3.2-4.8 g/dL Assessment/Plan Assessment/Plan Assessment Unstable angina hypertension Thyroid History of SC Plan Admit the patient to telemetry to the hospitalist Cardiology consultation Resume home medications Continue treatment per orders. Plan discussed with: Patient My Orders Orders - EVELYN CRAIN Procedure Category Date Status Time * Cardiology Consult CONS 01/24/25 Transmitted 19:09 Levothyroxine Tablet PHA 01/25/25 In Process (Synthroid Tablet) 06:00 Isosorbide PHA 01/25/25 In Process Mononitrate Tablet 10:00 Metoprolol Xl PHA 01/25/25 In Process Succinate (Toprol Xl) 10:00 Ranolazine (Ranexa Er) PHA 01/24/25 In Process 22:00 Pravastatin Sodium PHA 01/24/25 In Process Tablet (Pravachol Tab 22:00 Basic Metabolic Panel LAB 01/25/25 Verified 04:00 Admit ADMIT 01/24/25 Transmitted 19:09 Ondansetron Hcl PHA 01/24/25 In Process (Zofran) 19:15 Cardiac DIET 01/25/25 Transmitted Diet-2gna,Lofat,Lochol Breakfast Condition: Stable BEA 01/24/25 In Process 19:09 Acetaminophen Tablet PHA 01/24/25 In Process (Tylenol Tablet) 19:15 Bedrest With Bathroom BEA 01/24/25 In Process Privileg 19:09 Ct Chest/Ab/Pl W Con- CT 01/24/25 Logged Iv Only 21:00 Date of Service: Jan 24, 2025 Billing Provider: EVELYN CRAIN Common Visit Codes: 20202-IMFOSDM INP/OBS CARE (MOD) EVELYN CRAIN Jan 24, 2025 21:29
[2025-01-25] VITALS (7 sets, daily range): BP systolic 96–137; BP diastolic 60–87; PULSE 58–105; RESP 16–18; TEMP 97.3–98.3; O2SAT 96–99
[2025-01-25] MEDS: PRAVASTATIN SODIUM 20 MG TAB PO SCH (01:11)
[2025-01-25] MEDS: RANOLAZINE ER 500 MG TAB PO SCH (01:11)
--- NOTE | 2025-01-25 02:53 | DVH ---
Examination: CAPIV CLINICAL INDICATION: POSS DISSECTION COMPARISON: None. CONTRAST USED: Intravenous. TECHNIQUE: A post-contrast CT study of the chest, abdomen and pelvis is performed after administrati on of intravenous contrast medium. The examination was performed with 5 mm thin slices. Technique f or this CT scan was done using principles of ALARA (As Low As Reasonably Achievable). Multiplanar re constructions were obtained. FINDINGS: CT CHEST Lungs: Few solid pulmonary nodules with sizes ranging from 3 mm to 5.5 mm scattered in both lungs, l argest of approximate size 5.5 mm in the right lower pulmonary lobe; advised follow-up CT at 3-6 jj hs interval as per Fleischner Society guidelines. Subpleural atelectatic areas and/or scarring in nivia th lower pulmonary lobes and in the medial segment of right middle pulmonary lobe. Rest of the pulmo nary parenchyma does not show any significant abnormality. Pleural spaces are clear, with no evidenc e of pleural effusion. Mediastinum, heart and great vessels: The trachea and the mainstem bronchi are normal. No significa nt mediastinal lymphadenopathy is detected. Cardiac size appears unremarkable. Ectatic ascending ao rta with maximum diameter up to approximately 40 mm. Calcific atherosclerotic aortic plaques and cor onary arterial calcifications noted. Otherwise, rest of the mediastinal vasculature is normal. No e vidence of pericardial effusion. Moderate esophageal hiatus hernia with herniation of near-complete stomach into the posterior mediastinum. Osseous structures: Sternotomy sutures noted. Degenerative changes in the thoracolumbar vertebrae n oted, in the form of osteophytes in the visualized vertebral bodies. Ribs are unremarkable. CT ABDOMEN Liver: The liver is normal in size. The portal venous radicles are normal. There is no intrahepati c biliary radicle dilatation. Gallbladder: The gallbladder is normal and reveals no intrinsic abnormality. The common bile duct i s not dilated. Pancreas: The pancreas is normal in size and shape. No focal lesion is seen within. The peripancre atic fat-planes are normal. Spleen: The spleen is normal in size and does not show any focal abnormality. Retroperitoneum: Both adrenal glands are normal in size and morphology. There is no significant ret roperitoneal lymphadenopathy. The kidneys are normal in size, with no hydronephrosis or renal calcu li. Vessels: Calcific atherosclerotic aorto-iliac plaques noted. Otherwise, the aorta, IVC and the mese nteric vessels appear normal. Stomach and bowel: Moderate esophageal hiatus hernia with herniation of near-complete stomach into t he posterior mediastinum. The bowel loops are unremarkable. There is no ascites. Skeletal system: Mild degenerative changes noted in thoracolumbar spine. The pelvic bones are unrem arkable. CT PELVIS Appendix: The appendix is unremarkable in appearance. Colon: The ascending, transverse, descending, sigmoid colon and rectum are unremarkable. Urinary bladder: The urinary bladder is unremarkable. Pelvic organs: The prostate gland is enlarged in size (measuring approximately 4.8 x 3.8 x 4.6 cm wi th approximate volume 44 mL) with the median lobe indenting the base of the urinary bladder along wit h prostatic parenchyma calcification. No significant pelvic lymphadenopathy is identified. No abnormal fluid collection is seen. IMPRESSION: 1. No evidence of aortic dissection or aneurysm. 2. Moderate esophageal hiatus hernia with herniation of near-complete stomach into the posterior med iastinum. 3. Few solid pulmonary nodules with sizes ranging from 3 mm to 5.5 mm scattered in both lungs, large st of approximate size 5.5 mm in the right lower pulmonary lobe. Advised follow-up CT at 3-6 months interval as per Fleischner Society guidelines. 4. No abdominal mass or adenopathy. 5. No ascites. 6. No free air or inflammatory changes. 7. Chronic and/or ancillary findings as described above. Pulmonary nodule follow-up protocol: As per the Fleischner Society Guidelines (2017). SOLID NODULES Single or Multiple nodules: Low-risk: No routine follow-up. High-risk: Optional CT at 12 months. 6-8 mm Single nodule: Low risk: CT at 6-12 months, then consider CT at 18-24 months. High risk: CT at 6-[address] at 18-24 months. Multiple nodules: Low-risk: CT at 3-[address] at 18-24 months. High risk: CT at 3-6 months then at 18-24 months. Andgt; 8 mm Single nodule: Low-risk: Consider CT at 3 months, PET/CT, or tissue sampling. High-risk: Consider CT at 3 months, PET/CT, or tissue sampling. Multiple nodules: Low-risk: CT at 3-[address] at 18-24 months. High-risk: CT at 3-6 months then at 18-24 months. SUB-SOLID NODULES Single nodule: Ground glass: No routine follow-up. Partly solid: No routine follow-up. Multiple nodules: CT at 3-6 months. If stable consider CT at 2 and 4 years. =/Andgt;6 mm Single nodule: Ground glass: CT at 6-12 months to confirm persistence then CT every 2 years until 5 years. Partly solid: CT at 3-6 months to confirm persistence. If unchanged and solid component remains less than [address] should be performed for 5 years. Multiple nodules: CT at 3-6 months. Subsequent management based on the most suspicious nodule(s). Electronically Signed 01/25/2025 02:51 Hanane Mendoza
[2025-01-25 05:01] LABS: Chloride 107 mmol/L (98-107); Potassium 3.6 mmol/L (3.5-5.1); Sodium 141 mmol/L (136-145)
[2025-01-25 05:02] LABS: Anion Gap 8 (5-15); Carbon Dioxide 26 mmol/L (20-31)
[2025-01-25 05:03] LABS: Calcium 9.2 mg/dL (8.7-10.4)
[2025-01-25 05:08] LABS: BUN/Creatinine Ratio 19.4 (10.0-20.0)
[2025-01-25 05:09] LABS: Blood Urea Nitrogen 24 mg/dL (9-23); Glucose 129 mg/dL (74-106)
[2025-01-25] MEDS: LEVOTHYROXINE SODIUM 25 MCG TAB PO SCH (06:11)
[2025-01-25 08:37] LABS: Magnesium 2.3 mg/dL (1.6-2.6)
[2025-01-25] MEDS: ISOSORBIDE MONONITRATE ER 60 MG TAB PO SCH (08:51)
[2025-01-25] MEDS: METOPROLOL SUCCINATE XL 50 MG TAB PO SCH (08:51)
[2025-01-25 10:41] LABS: Opiate Scree,Urine Neg (NEGATIVE)
[2025-01-25 10:51] LABS: Amphetamine Screen, Urine Neg (NEGATIVE); Barbiturate Scree,Urine Neg (NEGATIVE); Benzodiazephine Screen, Urine Neg (NEGATIVE); Cannabinoid Screen, Urine Neg (NEGATIVE); Cocaine Screen, Urine Neg (NEGATIVE); Phencyclidine Screen, Urine Neg (NEGATIVE)
--- NOTE | 2025-01-25 12:52 | ECG ---
[facility] Test Date: 2025-01-24 Test Time: 14:09:23 Pat Name: CARSON VELAZQUEZ Department: ER Room: 0221T Gender: M Family Services Coordinator: RICKEY : [id number] Requested By: MAHI CINTRON Order Number: [id number] Reading MD: Demetrio Lindsay Measurements Intervals [place] Rate: 56 P: 30 SC: 181 QRS: -76 QRSD: 151 T: 46 QT: 495 QTc: 478 Interpretive Statements Sinus rhythm Atrial premature complex Right bundle branch block LVH by voltage Inferior infarct, old Electronically Signed On 01-30-2025 16:54:33 PST by Demetrio Lindsay Please click the below link to view image of tracing.
--- NOTE | 2025-01-25 13:12 | DVHINCON2 ---
Date Seen: Jan 25, 2025 Referring Physician MIKEL Thompson Reason for Consultation Chest pain History of Present Illness This is a 74-year-old male patient who presents to the emergency room with chief complaint of chest pain. The patient reports that the chest pain began yesterday at approximately 1:00 p.m. after doing some yard work. He states that he took two sublingual nitroglycerin at home with no relief and decided to call emergency medical services. Per patient, emergency medical services provided him with one more sublingual nitroglycerin, also with no relief. The patient states he was given fentanyl in the ambulance and started to feel some relief. He describes the chest pain as provoked with exertion, constant, pressure-like in nature, mid substernal, and nonradiating. Associated symptoms include diaphoresis per patient. Initial twelve electrocardiogram reveals sinus bradycardia with right bundle branch block PAC and Q-waves seen in inferior leads. Initial troponin level of 7ng/L with flat trend thereafter. Significant past medical history includes severe coronary artery disease status post triple- vessel CABG, multiple PTCAs X 7 RENAE (on ASA), transient supraventricular tachycardia, hypertension, dyslipidemia, thyroid disease and benign prostate hyperplasia. The patient reports that he follows up with a fast food attendant at the [facility] [place]. The patient underwent a coronary angiogram on 11/01/2021 at this facility which revealed patent saphenous graft to the diagonal and PDA, occluded saphenous graft to the left marginal, and patent LEDESMA to LAD, a three- vessel coronary artery disease without the need for revascularization. The patient states that he has not had any coronary angiogram since then. Past Medical History Past medical history reviewed. No other significant than mentioned above. Past Surgical History CABG in 2018 Family History: FH: myocardial infarction G8 FATHER FH: prostate cancer G8 FATHER Hypercholesterolemia G8 FATHER Hypertension G8 MOTHER G8 FATHER Ischemic heart disease G8 MOTHER Family History Family history reviewed. Social History Patient has a 15 pack-year history, quit smoking approximately 30 years ago Patient denies any illicit drug use Patient denies any alcohol use Allergies: Coded Allergies: [place] (Verified Allergy, Severe, Tingling and swelling of mouth, eyes tearing, 11/01/21) Atorvastatin (Verified Allergy, Unknown, 08/15/24) Uncoded Allergies: bee sting (Allergy, Severe, 01/25/25) Home Meds Active Scripts Tramadol HCl (Tramadol HCl) 50 Mg Tab, 50 MG PO BID, #20 TAB Prov:JUAN JOSÉ METZ 08/15/24 Metoprolol Succinate (Metoprolol Succinate Er) 25 Mg Tab, 0.5 TAB PO DAILY, #30 TAB 0 Refills Prov:BONG PERRY MD 04/03/23 Meclizine HCl (Meclizine 25) 25 Mg Tab, 25 MG PO DAILY for 10 Days, #10 TAB Prov:EDWARDO GILLIAM MD 02/01/22 Ranolazine (Ranexa) 500 Mg Tab, 500 MG PO BID for 30 Days, #60 TAB Prov:BONG PERRY MD 11/02/21 Reported Medications Ezetimibe (Zetia) 10 Mg Tab, 10 MG PO DAILY, TAB 05/23/22 Melatonin (KP MELATONIN) 3 Mg Tab, 10 MG PO QPM, TAB 05/23/22 Cetirizine Hcl (Kls Aller-En) 10 Mg Tab, 10 MG PO DAILY, TAB 05/23/22 Isosorbide Mononitrate (Isosorbide Mononitrate Er) 30 Mg Tab, 30 MG PO DAILY, TAB 05/23/22 Artificial Tear Solution (ARTIFICIAL TEARS) Tears [place], 2 DROP EACHEYE QIDPRN for DRY EYES, ML 05/23/22 Pravastatin Sodium (PRAVACHOL TABLET) 20 Mg Tb, 80 MG PO HS, TAB 05/23/22 Dicyclomine Hcl (Dicyclomine Hcl) 20 Mg Tab, 20 MG PO QID, TAB 05/23/22 Pantoprazole Sodium Sesquihydr (Protonix) 40 Mg Tab, 40 MG PO BID, #30 TAB 05/23/22 Aspirin (Aspir-81) 81 Mg Tab, 81 MG PO DAILY, TAB 05/23/22 Nitroglycerin (NTROSTAT SUBLINGUAL) 0.4 Mg Sl, 0.4 MG SL PRN PRN for FOR CHEST PAIN *MAY REPEAT EVERY 5 MINUTES X 3 TOTAL IF NO RELIEF, INITIATE ANALGESIC THERAPY. NOTIFY PHYSICIAN *Do not crush. 04/09/21 Home Meds Home medications reviewed. Current Medications Current Medications Medications (Trade) Dose Ordered Sig/Andrea Route PRN Reason Start Time Stop Time Status Last Admin Levothyroxine Sodium (Synthroid Tablet) 25 mcg QAM@0600 PO 01/25/25 06:00 01/25/25 06:11 Isosorbide Mononitrate (Imdur Er Tablet) 30 mg DAILY PO 01/25/25 10:00 01/25/25 08:51 Metoprolol Succinate (Toprol Xl) 12.5 mg DAILY PO 01/25/25 10:00 01/25/25 08:51 Ranolazine (Ranexa ER) 500 mg BID PO 01/24/25 22:00 01/25/25 08:50 Pravastatin Sodium (Pravachol Tablet) 40 mg HS PO 01/24/25 22:00 01/25/25 01:11 Ondansetron HCl (Zofran) 4 mg Q4HP PRN IV NAUSEA / VOMITING 01/24/25 19:15 Acetaminophen (Tylenol Tablet) 650 mg Q6HP PRN PO PAIN SCALE 1-3 OR TEMP>100.4 01/24/25 19:15 Review of Systems Constitutional: No symptom reported Ears, Nose, & Throat: No symptom reported Eyes: No symptom reported Neurological: No symptoms reported Pulmonary/Respiratory: No symptoms reported Cardiovascular: Chest pain Gastrointestinal: No symptom reported Genitourinary: No symptom reported Musculoskeletal: No symptom reported Skin: No symptom reported Psychiatric: No symptom reported Endocrine: No symptom reported Hematologic/Lymphatic: No symptom reported Vital Signs Vital Signs Date Time Temp Pulse Resp B/P (MAP) Pulse Ox O2 Delivery O2 Flow Rate FiO2 01/25/25 08:51 64 140/82 01/25/25 08:08 97.6 16 99 97.6 01/25/25 02:40 Room Air* 0 21 Physical Exam General Appearance: Cooperative. Well-developed. Well-nourished. No acute distress. Pulmonary/Respiratory: Clear, bilateral breaths sounds. Cardiovascular/Chest: Regular rate and rhythm. Peripheral Pulses: 2+ Radial (R). 2+ Radial (L). 2+ Pedal (R). 2+ Pedal (L) Abdominal Exam: Normal bowel sounds. Ankle Exam: Negative ankle edema Lower extremities: Negative lower extremity edema Neuro/Mental Status: A/OX4, coherent. Thoughts/Psych: Normal thought pattern. Appropriate mood and affect. Good judgment and insight. Appearance: No acute distress. Skin Exam: Normal inspection. Normal color. Warm and dry. Labs/Diagnostic Data Labs Test 01/25/25 09:45 01/25/25 04:49 01/25/25 04:09 01/24/25 15:20 Range/Units Urine Opiates Screen Neg NEGATIVE Urine Fentanyl Screen Pos NEGATIVE Urine Barbiturates Screen Neg NEGATIVE Urine Phencyclidine Screen Neg NEGATIVE Urine Amphetamines Screen Neg NEGATIVE Urine Benzodiazepines Screen Neg NEGATIVE Urine Cocaine Screen Neg NEGATIVE Urine Cannabinoids Screen Neg NEGATIVE Hemoglobin A1c 5.3 <5.7 % A1C Magnesium Level 2.3 1.6-2.6 mg/dL Triglycerides Level 193 H < 150 mg/dL Cholesterol Level 100 < 200 mg/dL LDL Cholesterol 43 < 100 mg/dL HDL Cholesterol 41 40-59 mg/dL Thyroid Stimulating Hormone (TSH) 3.32 0.55-4.78 uIU/mL Sodium Level 141 136-145 mmol/L Potassium Level 3.6 3.5-5.1 mmol/L Chloride Level 107 98-107 mmol/L Carbon Dioxide Level 26 20-31 mmol/L Anion Gap 8 5-15 Blood Urea Nitrogen 24 H 9-23 mg/dL Creatinine 1.24 0.700-1.30 mg/dL Glomerular Filtration Rate Calc 60 >90 mL/min BUN/Creatinine Ratio 19.4 10.0-20.0 Serum Glucose 129 H 74-106 mg/dL Calcium Level 9.2 8.7-10.4 mg/dL Hepatitis B Surface Antigen Negative Negative Troponin I High Sensitivity 24 </=54 ng/L Test 01/24/25 14:19 Range/Units White Blood Count 7.0 4.4-10.8 10^3/uL Red Blood Count 4.79 4.5-5.90 10^6/uL Hemoglobin 16.0 13.5-17.5 g/dL Hematocrit 47.5 41.0-53.0 % Mean Corpuscular Volume 99.2 80.0-100.0 fL Mean Corpuscular Hemoglobin 33.5 H 28.0-32.0 pg Mean Corpuscular Hemoglobin Concent 33.7 32.0-36.0 g/dL Red Cell Distribution Width 13.7 11.8-14.3 % Platelet Count 147 140-450 10^3/uL Mean Platelet Volume 9.1 6.9-10.8 fL Neutrophils (%) (Auto) 73.8 37.0-80.0 % Lymphocytes (%) (Auto) 13.2 10.0-50.0 % Monocytes (%) (Auto) 10.7 0.0-12.0 % Eosinophils (%) (Auto) 1.7 0.0-7.0 % Basophils (%) (Auto) 0.6 0.0-2.0 % Neutrophils # (Auto) 5.2 1.6-8.6 10 ^3/uL Lymphocytes # (Auto) 0.9 0.4-5.4 10 ^3/uL Monocytes # (Auto) 0.8 0-1.3 10 ^3/uL Eosinophils # (Auto) 0.1 0-0.8 10 ^3/uL Basophils # (Auto) 0 0-0.2 10 ^3/uL Nucleated Red Blood Cells 0.1 % Total Bilirubin 0.6 0.2-1.0 mg/dL Aspartate Amino Transferase (AST) 34 13-40 U/L Alanine Aminotransferase (ALT) 27 7-40 U/L Alkaline Phosphatase 70 46-116 U/L Total Protein 6.3 5.7-8.2 g/dL Albumin 4.1 3.2-4.8 g/dL Assessment Chest pain, rule out progressive coronary artery disease Severe coronary artery disease status post triple-vessel CABG Multiple PTCAs X 7 RENAE (on ASA) Rule out structural heart disease Hypertension Dyslipidemia Thyroid disease BPH Plan/Recommendation We will continue with the following plan/recommendations (Dr. Lindsay) * Transthoracic echocardiogram to evaluate cardiac function * Chest pain protocol * HEART score: 6 points (moderate score) * Continue single antiplatelet therapy and lipid-lowering agent * Close Cardiac surveillance Case reviewed and discussed with . Given the patient's clinical presentation, elevated HEART score and multiple comorbidities, the patient may benefit from coronary angiogram with left heart catheterization. The procedure was discussed with the patient in full detail including risks and benefits. Risks include but are not limited to bleeding, contrast-induced nephropathy, stroke, and even . The patient understands and is agreeable to undergo the procedure. We will schedule the patient at first availability on 01/26/25. Thank you for allowing us to care for this patient. Please call with any questions or concerns. Critical care time spent: 40 minutes This medical document was created using an electronic medical record system with voice recognition software and computerized dictation system. Although this document has been carefully reviewed, there might still be some phonetic and typographical errors. Occasional wrong-word or ``sound-alike substitutions may have occurred due to the inherent limitations of voice recognition software. These areas are purely typographical due to imperfections of the software programs and do not reflect any compromise in the patient's medical care. Please read the chart carefully and recognize, using context, where these substitutions have occurred. Plan discussed with: Patient NYHA Physical activity limitations: NA Date of Service: Jan 25, 2025 Billing Provider: JM BAH Cardiology Common Codes: 01842-KCAYQHC INP/OBS CARE (High) Cardiology Consultation Codes: 22504-[id number] CONSULT <45MIN JM BAH Jan 25, 2025 13:12
[2025-01-25] MEDS: ENOXAPARIN SOD 40 MG/0.4 ML SYRINGE SC ONE (16:33)
--- NOTE | 2025-01-25 19:47 | DVHPN2 ---
Subjective no further chest pain Changes from previous H/P or p: No Changes Objective Vitals Vital Signs Date Time Temp Pulse Resp B/P (MAP) Pulse Ox O2 Delivery O2 Flow Rate FiO2 01/25/25 16:51 97.6 64 16 115/72 (86) 98 97.6 01/25/25 02:40 Room Air* 0 21 Intake/Output Intake and Output 01/25/25 07:00 Intake Total 480 ml Output Total 0 ml Balance 480 ml Intake Oral 480 ml Output Urine Total 0 ml General Appearance: Alert, Oriented X3 Lungs: Clear to auscultation Cardiovascular: Regular rate Neuro: Normal gait Medications Current Medications Medications Dose Ordered Sig/Andrea Route Start Time Stop Time Status Last Admin Dose Admin Levothyroxine Sodium 25 mcg QAM@0600 PO 01/25/25 06:00 01/25/25 06:11 25 MCG Isosorbide Mononitrate 30 mg DAILY PO 01/25/25 10:00 01/25/25 08:51 30 MG Metoprolol Succinate 12.5 mg DAILY PO 01/25/25 10:00 01/25/25 08:51 12.5 MG Ranolazine 500 mg BID PO 01/24/25 22:00 01/25/25 08:50 500 MG Pravastatin Sodium 40 mg HS PO 01/24/25 22:00 01/25/25 01:11 40 MG Ondansetron HCl 4 mg Q4HP PRN IV 01/24/25 19:15 Acetaminophen 650 mg Q6HP PRN PO 01/24/25 19:15 Aspirin 81 mg DAILY PO 01/26/25 10:00 Laboratory Results Laboratory Tests 01/24/25 14:19 01/25/25 04:09 Chemistry Test 01/25/25 04:09 01/25/25 04:49 Calcium Level 9.2 mg/dL (8.7-10.4) Magnesium Level 2.3 mg/dL (1.6-2.6) Lipid panel Test 01/25/25 04:49 Cholesterol Level 100 mg/dL (< 200) HDL Cholesterol 41 mg/dL (40-59) Triglycerides Level 193 mg/dL (< 150) H HgA1c, TSH Test 01/25/25 04:49 Hemoglobin A1c 5.3 % A1C (<5.7) Thyroid Stimulating Hormone (TSH) 3.32 uIU/mL (0.55-4.78) Assessment/Plan Assessment/Plan Unstable angina hypertension Thyroid History of [place] troponins negative echo pending cardiology planning on cath due to high risk continue aspirin and statin continue metoprolol Plan discussed with: Patient Date of Service: Jan 25, 2025 Billing Provider: HOMER CHEW MD Common Visit Codes: [id number] INP/OBS CARE(HIGH) HOMER CHEW MD Jan 25, 2025 19:47
[2025-01-26] VITALS (14 sets, daily range): BP systolic 111–152; BP diastolic 68–90; PULSE 58–75; RESP 12–18; TEMP 97.1–98.1; O2SAT 91–97
[2025-01-26 00:56] LABS: Urine Bacteria None Seen /hpf (None Seen)
[2025-01-26 01:04] LABS: Urine Blood Negative /uL (Negative); Urine Clarity Clear (Clear); Urine Color Light-Yellow (Yellow); Urine Protein, UAD Negative (Negative); Urine Specific Gravity 1.014 (1.001-1.035); Urine Squamous Epithelial Cell None Seen /hpf (<5); Urine Urobilinogen Normal (Negative)
[2025-01-26 01:05] LABS: Urine WBC < 1 /HPF (0-3)
[2025-01-26 07:09] LABS: INR 1.01 (0.9-1.15); Partial Thromboplastin Time 30.4 SEC (24.5-34.5); Prothrombin Time 10.7 sec (9.3-11.8)
[2025-01-26 07:15] LABS: Basophils # (auto) 0 10 ^3/uL (0-0.2); Basophils % (auto) 0.2 % (0.0-2.0); Eosinophils # (auto) 0.2 10 ^3/uL (0-0.8); Eosinophils % (auto) 2.4 % (0.0-7.0); Hematocrit 49.5 % (41.0-53.0); Hemoglobin 16.9 g/dL (13.5-17.5); Lymphocytes % (auto) 12.6 % (10.0-50.0); Mean Corpuscular Hemoglobin 33.4 pg (28.0-32.0); Mean Corpuscular Hgb Conc. 34.2 g/dL (32.0-36.0); Mean Corpuscular Volume 97.9 fL (80.0-100.0); Monocytes # (auto) 0.7 10 ^3/uL (0-1.3); Monocytes % (auto) 8.5 % (0.0-12.0); Neutrophils % (auto) 76.3 % (37.0-80.0); Nucleated Red Blood Cells % 0.1 %; Platelet Count (auto) 143 10^3/uL (140-450); Red Blood Cells 5.06 10^6/uL (4.5-5.90); Red Cell Distribution Width 13.9 % (11.8-14.3); White Blood Cell 7.8 10^3/uL (4.4-10.8)
[2025-01-26 07:16] LABS: Anion Gap 9 (5-15); Carbon Dioxide 23 mmol/L (20-31); Potassium 3.9 mmol/L (3.5-5.1); Sodium 140 mmol/L (136-145)
[2025-01-26 07:18] LABS: Calcium 8.8 mg/dL (8.7-10.4)
[2025-01-26 07:22] LABS: Blood Urea Nitrogen 19 mg/dL (9-23)
[2025-01-26] MEDS: IODIXANOL 320MG/ML 100ML BTL IV ONE (07:35)
[2025-01-26 07:36] LABS: Chloride 108 mmol/L (98-107); Glucose 110 mg/dL (74-106)
[2025-01-26] MEDS: LIDOCAINE 2%HCL (LOCAL ANESTH.) INJ 20ML MDV ONE (07:55)
[2025-01-26] MEDS: SODIUM CHL 0.9% 50 ML ONE ×2 (07:55→09:01)
[2025-01-26] MEDS: ANGIOMAX 250 MG VIAL IV ONE ×2 (07:55→09:01)
[2025-01-26] MEDS: MIDAZOLAM HCL 2MG/2ML 2ml VIAL (1mg/ml) ONE (07:57)
[2025-01-26] MEDS: fentaNYL CITRATE 100 MCG/2 ML VL ONE (07:57)
[2025-01-26] MEDS: IOHEXOL 350 MG/ML 100ML IJ ONE (08:27)
[2025-01-26] MEDS: CLOPIDOGREL BISULFATE 75 MG TAB ONE ×2 (09:00→09:01)
--- NOTE | 2025-01-26 09:45 | DVHOP2 ---
Operative Report - 2 Report Details Date: 01/26/25 Preop Diagnosis: Coronary artery disease Postop Diagnosis: Successful PTCA and stenting of distal RCA Surgeon: Farnaz Lindsay MD Anesthesiologist: Conscious sedation Anesthesia: Mac (Conscious sedation was administered by the nurse. I personally oversaw the administration of Versed and fentanyl and monitored the patient throughout the entirety of the procedure), Local Consent: The patient was informed of the risks and benefits of the procedure. These include but are not limited to complications of anesthesia, postoperative infection, incomplete relief of symptoms, recurrence of symptoms, damage to blood vessels, nerves and tendons, deep venous thrombosis, pulmonary embolism and possible need for repeat surgery in the future. Complications: No complications Estimated Blood Loss: 10 cc Findings: Patent saphenous grafts with severe stenosis of the distal RCA Indications for Surgery: Chest pain Name of Procedure Performed Bilateral cine coronary angiography. Left ventriculography. Visualization of saphenous venous grafts and left internal mammary artery. PTCA and stenting of the distal RCA. Procedure Details Procedure Details: Prior local anesthesia with 2% lidocaine to the right groin and full informed consent obtained with ultrasound and fluoroscopic guidance we placed a six Faroese sheath into the femoral artery. Six Faroese Jose Juan catheters were used to cannulate both arm and left coronary ostia saphenous venous grafts and left internal mammary artery. A pigtail catheter was used for ventriculography. A three five EBU guide was then placed to perform angioplasty in the RCA successfully. No complications. Hemodynamics aortic blood pressure was 130/70. End-diastolic pressure was 15. There was no gradient across the aortic valve on pullback. Coronary anatomy RCA is a large vessel it has mild to moderate plaquing throughout its proximal and midportion. The distal segment has not aneurysmal segment at the crux of the PDA. Adjacent to that in within the distal RCA there is a 99% stenosis. Posterolateral and distal RCA are otherwise free of significant disease. Left main is a medium vessel it is stenosed in its ostial segment about 70-80%. The LAD has a severe stenosis in his proximal and mid section. Competitive flow is noted from the left internal mammary artery. The circumflex is a large vessel it has a 95% stenosis prior to the origin of a marginal branch which has competitive flow from a saphenous venous graft. The left internal mammary artery to the LAD is patent without stenosis. The saphenous venous graft to the PDA is patent however there was no retrograde filling of the posterolateral branch or RCA itself. Distal flow noted to be adequate. No lesions within the PDA or the saphenous graft. The saphenous graft to the obtuse marginal branches patent without stenosis in its proximal mid or distal segments. The anastomosis is patent and without disease. There is proximal haziness of the marginal just distal to the anastomosis but there appears to be CHUNG three flow. Mild competitive flow noted with retrograde filling of the inferior marginal branch. Ventriculography in the HOFFMAN projection was performed showing an EF of about 30- 35% with anterior apical and global hypokinesis. Angioplasty was performed for which a 3.5 EBU guide was placed six Faroese in size. This was placed into the RCA. A run-through wire was then placed into the area of the distal RCA and across the area of stenosis into the posterolateral branch. We then placed a two five euphoria balloon by [employer] and dilated several times. There was a residual small dissection which was limited. We then placed a 2.5 mm x 12 mm stent. There was slight distal edge dissection for which we placed a 2nd 2.5 mm x 8 mm irma drug-eluting stent by [employer]tr[employer] however the patient was coughing and moved and there was forward movement of the stent. We had to place a 3rd 2.5 mm x 8 mm Medtronic irma drug- eluting stent stacked in between the previously placed stents given haziness and dissection. The they sat and subsequent stenting were resolved. There was ultimately excellent antegrade flow. No thrombus formation. There was no dissection residual. A Perclose device was used to seal the femoral artery. Impression: Normal left ventricular end-diastolic pressure at rest. Decreased ejection fraction. Significant disease involving the [place] RCA. 80% proximal diagonal. Patent saphenous grafts to the PDA marginal branch and left internal mammary artery to the LAD. Successful stenting of the distal RCA. Recommendations: Medical therapy is warranted. Continue risk factor modification. Condition Good Disposition Still a Patient Date of Service: Jan 26, 2025 Billing Provider: FARNAZ LINDSAY Sr., MD Cardiology Common Codes: [id number] INP/OBS CARE (High) Cardiology Procedure Codes: 58882 -PTCA W/STENT PLACEMENT, 52158-JGBB ADD COR ART/BRNCH/GRFT, 50130-YEOH HEART CATH W/INTRA INJ, 76567-Q/L HEART CATH W/BYPASS GFT FARNAZ LINDSAY Sr., MD Jan 26, 2025 09:45
[2025-01-26] MEDS: ASPirin 81 mg TAB PO SCH (10:00)
[2025-01-26] MEDS ORDERED: CLOP75TA70 PO (13:54)
--- NOTE | 2025-01-26 14:01 | DVHPN2 ---
Subjective Seen and examined at bedside, s/p PTCA with Dr. Lindsay. Possible DC in AM. Changes from previous H/P or p: No Changes Objective Vitals Vital Signs Date Time Temp Pulse Resp B/P (MAP) Pulse Ox O2 Delivery O2 Flow Rate FiO2 01/26/25 13:00 97.8 68 18 111/68 (82) 95 97.8 01/26/25 07:30 Room Air* 0 21 Intake/Output Intake and Output 01/26/25 07:00 Intake Total 775 ml Output Total 700 ml Balance 75 ml Intake Oral 775 ml Output Urine Total 700 ml # Voids 1 General Appearance: Alert, Oriented X3 Lungs: Clear to auscultation Cardiovascular: Regular rate Neuro: Normal gait Medications Current Medications Medications Dose Ordered Sig/Andrea Route Start Time Stop Time Status Last Admin Dose Admin Levothyroxine Sodium 25 mcg QAM@0600 PO 01/25/25 06:00 01/26/25 05:18 25 MCG Isosorbide Mononitrate 30 mg DAILY PO 01/25/25 10:00 01/25/25 08:51 30 MG Metoprolol Succinate 12.5 mg DAILY PO 01/25/25 10:00 01/25/25 08:51 12.5 MG Ranolazine 500 mg BID PO 01/24/25 22:00 01/25/25 22:00 500 MG Pravastatin Sodium 40 mg HS PO 01/24/25 22:00 01/25/25 22:00 40 MG Ondansetron HCl 4 mg Q4HP PRN IV 01/24/25 19:15 Acetaminophen 650 mg Q6HP PRN PO 01/24/25 19:15 Aspirin 81 mg DAILY PO 01/26/25 10:00 Clopidogrel Bisulfate 75 mg DAILY PO 01/27/25 10:00 Laboratory Results Laboratory Tests 01/26/25 06:17 Chemistry Test 01/26/25 06:17 Calcium Level 8.8 mg/dL (8.7-10.4) Coagulation Test 01/26/25 06:17 Prothrombin Time 10.7 sec (9.3-11.8) Prothrombin Time INR 1.01 (0.9-1.15) Activated Partial Thromboplast Time 30.4 SEC (24.5-34.5) Urinalysis Test 01/26/25 00:30 Urine Color Light-yellow (Yellow) Urine Clarity Clear (Clear) Urine pH 6.0 (5.0-9.0) Urine Specific [place] 1.014 (1.001-1.035) Urine Protein Negative (Negative) Urine Ketones Negative (Negative) Urine Blood Negative /uL (Negative) Urine Nitrite Negative (Negative) Urine Bilirubin Negative (Negative) Urine Urobilinogen Normal mg/dL (Negative) Urine Leukocyte Esterase Negative /uL (Negative) Urine RBC <1 /hpf (0 - 3) Urine Microscopic WBC < 1 /HPF (0-3) Urine Squamous Epithelial Cells None seen /hpf (<5) Urine Bacteria None seen /hpf (None Seen) Urine Glucose Normal mg/dL (Normal) Assessment/Plan Assessment/Plan Unstable angina s/p PTCA with 3 stents. Patient has history of CABG also Pulm Nodules- Needs repeat CT Chest in 3 months, Refer to Pulm Clinic Hypertensive Heart Disease with possible acute systolic CHF- Monitor for fluid overload Hypothyroid- Cont Meds Goals of care FULL CODE Plan discussed with: Patient Date of Service: Jan 26, 2025 Billing Provider: BONG PERRY MD Common Visit Codes: [id number] INP/OBS CARE(HIGH) BONG PERRY MD Jan 26, 2025 14:01
[2025-01-27 01:00] VITALS: BP 126/71; PULSE 70; RESP 18; TEMP 98.2; O2SAT 98
--- NOTE | 2025-01-27 08:18 | DVHDS2 ---
Discharge Summary Date of Admission Jan 24, 2025 at 19:09 Date of Discharge: Jan 27, 2025 Admitting Diagnosis Chest Pain Labs/Diagnostic Data: Laboratory Results Test 01/26/25 06:17 01/26/25 00:30 01/25/25 09:45 01/25/25 04:49 White Blood Count 7.8 10^3/uL (4.4-10.8) Red Blood Count 5.06 10^6/uL (4.5-5.90) Hemoglobin 16.9 g/dL (13.5-17.5) Hematocrit 49.5 % (41.0-53.0) Mean Corpuscular Volume 97.9 fL (80.0-100.0) Mean Corpuscular Hemoglobin 33.4 pg (28.0-32.0) Mean Corpuscular Hemoglobin Concent 34.2 g/dL (32.0-36.0) Red Cell Distribution Width 13.9 % (11.8-14.3) Platelet Count 143 10^3/uL (140-450) Mean Platelet Volume 9.7 fL (6.9-10.8) Neutrophils (%) (Auto) 76.3 % (37.0-80.0) Lymphocytes (%) (Auto) 12.6 % (10.0-50.0) Monocytes (%) (Auto) 8.5 % (0.0-12.0) Eosinophils (%) (Auto) 2.4 % (0.0-7.0) Basophils (%) (Auto) 0.2 % (0.0-2.0) Neutrophils # (Auto) 6.0 10 ^3/uL (1.6-8.6) Lymphocytes # (Auto) 1.0 10 ^3/uL (0.4-5.4) Monocytes # (Auto) 0.7 10 ^3/uL (0-1.3) Eosinophils # (Auto) 0.2 10 ^3/uL (0-0.8) Basophils # (Auto) 0 10 ^3/uL (0-0.2) Nucleated Red Blood Cells 0.1 % Prothrombin Time 10.7 sec (9.3-11.8) Prothrombin Time INR 1.01 (0.9-1.15) Activated Partial Thromboplast Time 30.4 SEC (24.5-34.5) Sodium Level 140 mmol/L (136-145) Potassium Level 3.9 mmol/L (3.5-5.1) Chloride Level 108 mmol/L (98-107) Carbon Dioxide Level 23 mmol/L (20-31) Anion Gap 9 (5-15) Blood Urea Nitrogen 19 mg/dL (9-23) Creatinine 1.12 mg/dL (0.700-1.30) Glomerular Filtration Rate Calc 68 mL/min (>90) BUN/Creatinine Ratio 17.0 (10.0-20.0) Serum Glucose 110 mg/dL (74-106) Calcium Level 8.8 mg/dL (8.7-10.4) Urine Color Light-yellow (Yellow) Urine Clarity Clear (Clear) Urine pH 6.0 (5.0-9.0) Urine Specific [place] 1.014 (1.001-1.035) Urine Protein Negative (Negative) Urine Ketones Negative (Negative) Urine Blood Negative /uL (Negative) Urine Nitrite Negative (Negative) Urine Bilirubin Negative (Negative) Urine Urobilinogen Normal mg/dL (Negative) Urine Leukocyte Esterase Negative /uL (Negative) Urine RBC <1 /hpf (0 - 3) Urine Microscopic WBC < 1 /HPF (0-3) Urine Squamous Epithelial Cells None seen /hpf (<5) Urine Bacteria None seen /hpf (None Seen) Urine Glucose Normal mg/dL (Normal) Urine Opiates Screen Neg (NEGATIVE) Urine Fentanyl Screen Pos (NEGATIVE) Urine Barbiturates Screen Neg (NEGATIVE) Urine Phencyclidine Screen Neg (NEGATIVE) Urine Amphetamines Screen Neg (NEGATIVE) Urine Benzodiazepines Screen Neg (NEGATIVE) Urine Cocaine Screen Neg (NEGATIVE) Urine Cannabinoids Screen Neg (NEGATIVE) Hemoglobin A1c 5.3 % A1C (<5.7) Magnesium Level 2.3 mg/dL (1.6-2.6) Triglycerides Level 193 mg/dL (< 150) Cholesterol Level 100 mg/dL (< 200) LDL Cholesterol 43 mg/dL (< 100) HDL Cholesterol 41 mg/dL (40-59) Thyroid Stimulating Hormone (TSH) 3.32 uIU/mL (0.55-4.78) Test 01/25/25 04:09 01/24/25 15:20 01/24/25 14:19 Hepatitis B Surface Antigen Negative (Negative) Troponin I High Sensitivity 24 ng/L (</=54) Total Bilirubin 0.6 mg/dL (0.2-1.0) Aspartate Amino Transferase (AST) 34 U/L (13-40) Alanine Aminotransferase (ALT) 27 U/L (7-40) Alkaline Phosphatase 70 U/L (46-116) Total Protein 6.3 g/dL (5.7-8.2) Albumin 4.1 g/dL (3.2-4.8) Other Laboratory Tests 01/26/25 06:17 Brief Hx & Hospital Course: This is a 74-year-old male patient who presents to the emergency room with chief complaint of chest pain. The patient reports that the chest pain began yesterday at approximately 1:00 p.m. after doing some yard work. He states that he took two sublingual nitroglycerin at home with no relief and decided to call emergency medical services. Per patient, emergency medical services provided him with one more sublingual nitroglycerin, also with no relief. The patient states he was given fentanyl in the ambulance and started to feel some relief. He describes the chest pain as provoked with exertion, constant, pressure-like in nature, mid substernal, and nonradiating. Associated symptoms include diaphoresis per patient. Initial twelve electrocardiogram reveals sinus bradycardia with right bundle branch block PAC and Q-waves seen in inferior leads. Initial troponin level of 7ng/L with flat trend thereafter. Significant past medical history includes severe coronary artery disease status post triple- vessel CABG, multiple PTCAs X 7 RENEA (on ASA), transient supraventricular tachycardia, hypertension, dyslipidemia, thyroid disease and benign prostate hyperplasia. The patient reports that he follows up with a technical specialist cytogenetics at the [facility] in [place]. The patient underwent a coronary angiogram on 11/01/2021 at this facility which revealed patent saphenous graft to the diagonal and PDA, occluded saphenous graft to the left marginal, and patent LEDESMA to LAD, a three- vessel coronary artery disease without the need for revascularization. Patient underwent PTCA again with [address] Lindsay, patient eloped with IV line in place from patients room. Condition at Discharge: Poor Final Diagnosis/Problems List Unstable angina s/p PTCA with 3 stents. Patient has history of CABG also Pulm Nodules- Needs repeat CT Chest in 3 months, Refer to Pulm Clinic Hypertensive Heart Disease with possible acute systolic CHF- Monitor for fluid overload Hypothyroid- Cont Meds Goals of care FULL CODE Discharge Disposition: Eloped Discharge Instruct/Medications Activity: Light activity Discharge Statement: "Patient was advised to return to the ER or call 911 if any headaches, dizziness, shortness of breath, chest pain, abdominal pain, bleeding, fevers, or worsening of medical condition. Patient was counseled about treatment plan, medications, possible side effects, patientverbalized understanding. All questions were answered to the best of my ability. This discharge took greater then 30 minutes in planning, reviewing documentation, counseling the patient, and discussing with other team members." ASSESSMENT ASSESSMENT Assessment Successful PTCA and stenting of distal RCA Date of Service: Jan 27, 2025 Billing Provider: BONG PERRY MD Common Visit Codes: [id number]/OBS DISCH DAY >30min BONG PERRY MD Jan 27, 2025 08:18
[2025-01-27] MEDS ORDERED: CLOPIDOGREL BISULFATE 75 MG TAB PO SCH (10:00)
--- NOTE | 2025-01-28 13:30 | DVHSR ---
APPROVED REPORT EXAM: Two-dimensional and M-mode echocardiogram with Doppler and color Doppler. Blood Pressure: 137/83 mmHg INDICATION Evaluate cardiac function; wall motion Surgery/Intervention CABG: RISK FACTORS Height: 5'9", Weight: 195 DIMENSIONS LVDd5.0 (3.8-5.7cm)LA (2D)3.8 (1.9-4.0cm)Aortic Root4.0 (2.0-3.7cm) LVDs3.4 (2.5-4.0cm)LA (MM) (1.9-4.0cm)Aortic Cusp Exc1.7 (1.5-2.0cm) EF (%) 55.0 (55-70%)Rt. Atrium4.0 (1.9-4.0cm)Asc. Aorta cm IVSd1.1 (0.7-1.1cm)RV (D) (1.8-2.4cm) PWd1.0 (0.7-1.1cm) Mitral Valve MitralMitral Stenosis E wave0.76m/sMV Mean GR.mmHg A wave1.05m/sMV Peak GR.mmHg E/A ratio0.72D MVAcm2 DECEL [id number] 1/2 Timems Aortic Valve Aortic ValveAortic Stenosis V10.88m/Kadi Mean GR.3mmHg V21.09m/Kadi Peak GR.5mmHg LVOT Diameter2.3 (1.8-2.4cm)Doppler AVA3.35cm2 Pulmonic Valve V20.75m/s Tricuspid Valve TR Velocity1.93m/s [id number] Other Information Technically limited study due to body habitus and CABG. Conclusion Technically good study. Sinus rhythm. Aortic root enlargement. Mild left atrial enlargement. Mild mitral annular calcification. Valves are otherwise normal. Left ventricular function is preserved at 55% with normal RV function. No pericardial effusion masses or vegetations discernible.
== END 2025-01-27 01:50 | disposition left against medical advice (07) | DRG 321 ==
LOC: ER 14:02 → EDBD 14:02 → OVERFLOW 19:09 → CENTRAL 01-25 21:00 → TELE-CENTR 01-26 01:08
PROVIDERS: ADMIT Internal Medicine; ATTEND Internal Medicine
PROC: 027036Z Dilation of Coronary Artery, One Artery with Three Drug-eluting Intraluminal Devices, Percutaneous Approach (ICD-10-PCS; principal; 2025-01-26)
PROC: B211YZZ Fluoroscopy of Multiple Coronary Arteries using Other Contrast (ICD-10-PCS; 2025-01-26)
PROC: 4A023N7 Measurement of Cardiac Sampling and Pressure, Left Heart, Percutaneous Approach (ICD-10-PCS; 2025-01-26)
PROC: B215YZZ Fluoroscopy of Left Heart using Other Contrast (ICD-10-PCS; 2025-01-26)
PROC: B21FYZZ Fluoroscopy of Other Bypass Graft using Other Contrast (ICD-10-PCS; 2025-01-26)
PROC: B218YZZ Fluoroscopy of Left Internal Mammary Bypass Graft using Other Contrast (ICD-10-PCS; 2025-01-26)
DX: I25.110 Atherosclerotic heart disease of native coronary artery with unstable angina pectoris (principal); I50.21 Acute systolic (congestive) heart failure; I47.10 Supraventricular tachycardia, unspecified; I11.0 Hypertensive heart disease with heart failure; E78.5 Hyperlipidemia, unspecified; E03.9 Hypothyroidism, unspecified; F12.90 Cannabis use, unspecified, uncomplicated; R61 Generalized hyperhidrosis; I45.10 Unspecified right bundle-branch block; R00.1 Bradycardia, unspecified; N40.0 Benign prostatic hyperplasia without lower urinary tract symptoms; Z88.8 Allergy status to other drugs, medicaments and biological substances; Z91.018 Allergy to other foods; Z79.899 Other long term (current) drug therapy; Z79.82 Long term (current) use of aspirin; Z79.2 Long term (current) use of antibiotics; Z95.1 Presence of aortocoronary bypass graft; Z79.1 Long term (current) use of non-steroidal anti-inflammatories (NSAID); I25.2 Old myocardial infarction; Z82.49 Family history of ischemic heart disease and other diseases of the circulatory system; Z80.42 Family history of malignant neoplasm of prostate; Z83.49 Family history of other endocrine, nutritional and metabolic diseases; Z91.030 Bee allergy status
CPT/HCPCS: 36415; 71045; 71260; 74177; 80048; 80053; 80061; 80307; 81001; 83036; 83735; 84443; 84484; 85025; 85610; 85730; 86850; 86900; 86901; 87340; 92928; 93005; 93306; 93459; 99152; 99291; C1874; C1887; G0378; J2250; Q9967

== ENCOUNTER 2025-03-25 11:30 | Inpatient (IN) | payer OTHER ==
[~2025-03-25] VITALS: Ht 175.3 cm; Wt 87.5 kg
[~2025-03-25 11:30] MED LIST changes: +CLOP75TA70 PO
--- NOTE | 2025-03-25 11:47 | ED.PDOC ---
HPI Comments Final Diagnosis/Problems List on 01/27/25 Unstable angina s/p PTCA with 3 stents. Patient has history of CABG also Pulm Nodules- Needs repeat CT Chest in 3 months, Refer to Pulm Clinic Hypertensive Heart Disease with possible acute systolic CHF- Monitor for fluid overload Hypothyroid- Cont Meds Goals of care FULL CODE PMHx:High Lipids, [place], Chronic Back Pain SHx:3 Stents placed on the coronary artery x2 months ago, CABG-2019 VELAZQUEZ: HPI: Poor Historian. 63-year-old male presents to emergency department for evaluation of midsternal chest pressure tightness sensation nonradiating that woke him up from asleep at 9:00 a.m. this morning with the associated shortness of breath. Denies any other associated acute symptoms. Patient is status post coronary artery stenting proximally two months ago. He took his morning Plavix and aspirin. He took some pain medication as well this morning which he takes for his chronic low back pain. Patient states that his chest pain is improving. Patient is wearing an abdominal belt for back support. REVIEW OF SYSTEMS: CONSTITUTIONAL: Denies acute: fever, diaphoresis, chills, generalized weakness. HEAD: Denies acute: headache, photophobia Eyes: Denies acute: Double vision, vision loss, eye pain, eye discharge. EARS: Denies acute: tinnitus, hearing loss, ear discharge, ear pain, THROAT: Denies acute: sore throat, swelling, difficulty swallowing , pain with swallowing, change in voice. NECK: Denies acute: neck pain, neck swelling, stiff neck. HEART: Denies acute : palpitations, LUNGS: Denies acute: , wheezing, cough, hemoptysis ABDOMEN: Denies acute: abdominal pain, Nausea, Vomiting, diarrhea, melena , hematemesis, hematochezia SKIN: Denies acute: rash, redness, lesions, itchiness. EXTREMITIES: Denies acute: calf pain, numbness, tingling, weakness, denies pain in extremity. Denies acute: Low back pain. Neuro: Denies acute: focal neurological deficit, motor or sensory focal neurological deficit, tremors, seizure like activity, confusion, dizziness, change in mental status, loss of bowel or bladder function, cauda equina like symptoms. : Denies acute: dysuria, hematuria, flank pain, increase in urinary frequency. PSYCH: Denies acute: hallucination, suicidal ideation, homicidal ideation. PHYSICAL EXAM: General: ----[id number]----acute distress, awake and alert. Head: normocephalic, atraumatic. Neck: supple, trachea is midline, no swelling. Throat: Normal phonation. Eyes:, no erythema, no purulent discharge, no proptosis, no icterus. Heart: regular rate, regular rhythm, no significant murmur appreciated. Lungs: no apparent respiratory distress, Able to speak in full sentences. No wheezing, no rhonchi, no crackles. No stridors Clear to auscultation bilaterally. Abdomen: non tender to palpation, non distended, soft, no guarding, no rebound, + bowel sounds. Neuro: Awake, Alert, oriented to name, self, situation, follows commands GCS=15. Speech is normal. Skin: no petechia, no purpura, no cyanosis, non-pale, not jaundice. Lower extremities: --no - Pitting edema no deformity, no focal swelling, no calf TTP. Makes eye contact. moves all four extremities. Face: no apparent facial droop. Ambulating in the ED with a cane.. ED COURSE: Chief Complaint: Chest Pain Time Seen by MD: 11:40 Primary Care Provider: JOE Reviewed Notes: Nurses Notes, Allergies Allergies: Coded Allergies: [place] (Verified Allergy, Severe, Tingling and swelling of mouth, eyes tearing, 11/01/21) Atorvastatin (Verified Allergy, Unknown, 08/15/24) Uncoded Allergies: bee sting (Allergy, Severe, 01/25/25) Home Meds Active Scripts Clopidogrel Bisulfate (CLOPIDOGREL) 75 Mg Tab, 75 MG PO DAILY for 30 Days, #30 TAB Prov:BONG PERRY MD 01/26/25 Tramadol HCl (Tramadol HCl) 50 Mg Tab, 50 MG PO BID, #20 TAB Prov:JUAN JOSÉ METZ 08/15/24 Metoprolol Succinate (Metoprolol Succinate Er) 25 Mg Tab, 0.5 TAB PO DAILY, #30 TAB 0 Refills Prov:BONG PERYR MD 04/03/23 Meclizine HCl (Meclizine 25) 25 Mg Tab, 25 MG PO DAILY for 10 Days, #10 TAB Prov:EDWARDO GILLIAM MD 02/01/22 Ranolazine (Ranexa) 500 Mg Tab, 500 MG PO BID for 30 Days, #60 TAB Prov:BONG PERRY MD 11/02/21 Reported Medications Ezetimibe (Zetia) 10 Mg Tab, 10 MG PO DAILY, TAB 05/23/22 Melatonin (KP MELATONIN) 3 Mg Tab, 10 MG PO QPM, TAB 05/23/22 Cetirizine Hcl (Kls Aller-En) 10 Mg Tab, 10 MG PO DAILY, TAB 05/23/22 Isosorbide Mononitrate (Isosorbide Mononitrate Er) 30 Mg Tab, 30 MG PO DAILY, TAB 05/23/22 Artificial Tear Solution (ARTIFICIAL TEARS) Tears [place], 2 DROP EACHEYE QIDPRN for DRY EYES, ML 05/23/22 Pravastatin Sodium (PRAVACHOL TABLET) 20 Mg Tb, 80 MG PO HS, TAB 05/23/22 Dicyclomine Hcl (Dicyclomine Hcl) 20 Mg Tab, 20 MG PO QID, TAB 05/23/22 Pantoprazole Sodium Sesquihydr (Protonix) 40 Mg Tab, 40 MG PO BID, #30 TAB 05/23/22 Aspirin (Aspir-81) 81 Mg Tab, 81 MG PO DAILY, TAB 05/23/22 Nitroglycerin (NTROSTAT SUBLINGUAL) 0.4 Mg Sl, 0.4 MG SL PRN PRN for FOR CHEST PAIN *MAY REPEAT EVERY 5 MINUTES X 3 TOTAL IF NO RELIEF, INITIATE ANALGESIC THERAPY. NOTIFY PHYSICIAN *Do not crush. 04/09/21 Information Source: Patient Past Medical History PAST MEDICAL HISTORY: CAD, Cancer, High Lipids, HTN, [place], Thyroid Surgical History: CABG, Hernia Repair, PTCA Family History Family History: Reviewed,noncontributory to illness Social History Smoker: Non-Smoker, Quit Greater Than 1 Year Alcohol: Occasionally Drugs: Denies Drug Use, Marijuana Lives In: Home Was a procedure done? Was a procedure done?: No CP Differential Dx Differential Diagnosis: N/A Differential Diagnosis: Other (Ddx include but not limitied to gastritis, musculoskeletal pain, radiculopathy, atypical chest pain, dissection, aneurysm, ACS, unstable angina, hiatal hernia, GERD, anxiety, costochondritis, PE, pneumothroax, neoplasm, cardiac ischemia, drug abuse, anemia.) X-Ray, Labs, Meds, VS Vital Signs Date Time Temp Pulse Resp B/P (MAP) Pulse Ox O2 Delivery O2 Flow Rate FiO2 03/25/25 12:22 73 03/25/25 12:17 63 17 95 Room Air 03/25/25 12:17 98.7 63 16 147/82 (103) 95 98.7 03/25/25 12:13 131/85 03/25/25 11:33 97.8 66 17 157/103 (121) 96 97.8 Lab Test 03/25/25 14:50 03/25/25 12:47 03/25/25 11:43 Range/Units Troponin I High Sensitivity 9 10 10 </=54 ng/L White Blood Count 5.5 4.4-10.8 10^3/uL Red Blood Count 5.33 4.5-5.90 10^6/uL Hemoglobin 17.7 H 13.5-17.5 g/dL Hematocrit 52.4 41.0-53.0 % Mean Corpuscular Volume 98.3 80.0-100.0 fL Mean Corpuscular Hemoglobin 33.2 H 28.0-32.0 pg Mean Corpuscular Hemoglobin Concent 33.8 32.0-36.0 g/dL Red Cell Distribution Width 15.0 H 11.8-14.3 % Platelet Count 170 140-450 10^3/uL Mean Platelet Volume 8.3 6.9-10.8 fL Neutrophils (%) (Auto) 72.8 37.0-80.0 % Lymphocytes (%) (Auto) 13.1 10.0-50.0 % Monocytes (%) (Auto) 11.1 0.0-12.0 % Eosinophils (%) (Auto) 2.7 0.0-7.0 % Basophils (%) (Auto) 0.3 0.0-2.0 % Neutrophils # (Auto) 4.0 1.6-8.6 10 ^3/uL Lymphocytes # (Auto) 0.7 0.4-5.4 10 ^3/uL Monocytes # (Auto) 0.6 0-1.3 10 ^3/uL Eosinophils # (Auto) 0.1 0-0.8 10 ^3/uL Basophils # (Auto) 0 0-0.2 10 ^3/uL Nucleated Red Blood Cells 0.2 % Prothrombin Time 10.6 9.3-11.8 sec Prothrombin Time INR 1.00 0.9-1.15 Activated Partial Thromboplast Time 31.3 24.5-34.5 SEC Sodium Level 143 136-145 mmol/L Potassium Level 4.2 3.5-5.1 mmol/L Chloride Level 113 H 98-107 mmol/L Carbon Dioxide Level 21 20-31 mmol/L Anion Gap 9 5-15 Blood Urea Nitrogen 19 9-23 mg/dL Creatinine 1.05 0.700-1.30 mg/dL Glomerular Filtration Rate Calc 74 >90 mL/min BUN/Creatinine Ratio 18.1 10.0-20.0 Serum Glucose 109 H 74-106 mg/dL Calcium Level 9.3 8.7-10.4 mg/dL Total Bilirubin 0.6 0.2-1.0 mg/dL Aspartate Amino Transferase (AST) 41 H 13-40 U/L Alanine Aminotransferase (ALT) 29 7-40 U/L Alkaline Phosphatase 77 46-116 U/L Total Protein 7.6 5.7-8.2 g/dL Albumin 4.5 3.2-4.8 g/dL Current Medications Medications (Trade) Dose Ordered Sig/Andrea Route Start Time Stop Time Status Last Admin Aspirin (Ecotrin Enteric Coated Tablet) 325 mg ONCE ONCE PO 03/25/25 11:45 03/25/25 11:46 DC 03/25/25 12:10 PROCEDURE(s): CXRP - CHEST PORTABLE REASON: CHEST PAIN ORDER NUMBER(s): [id number], ACCESSION NUMBER(s): [id number] CHEST RADIOGRAPH Indication: CHEST PAIN Technique: Single frontal view of the chest was obtained COMPARISON: XY CHEST PORTABLE on DOS: 01/24/25, XY CHEST PORTABLE on DOS: 12/04/24, XY CHEST PORTABLE on DOS: 10/13/24, XY CHEST PORTABLE on DOS: 07/29/23, XY CHEST PORTABLE on DOS: 06/11/23 FINDINGS: Lines and Tubes: Median sternotomy Lungs: Clear Pleura: No effusion. No pneumothorax. Cardiomediastinal contours: Unremarkable Bones: Unremarkable IMPRESSION: No acute disease. EDURE(s): LUMB2 - LUMBAR SPINE 3 VIEW REASON: Back pain ORDER NUMBER(s): [id number], ACCESSION NUMBER(s): [id number] INDICATION: Back pain TECHNIQUE: 3 views of the lumbar spine were obtained. COMPARISON: XY LUMBAR SPINE 3 VIEW on DOS: 08/15/24 FINDINGS: There are no acute fractures or subluxations. Old compression fracture of T12, unchanged from 08/15/2024 IMPRESSION: 1. No acute fracture or subluxation. Mild old compression fracture of T12. Time of 1ST Reevaluation: 12:10 Reevaluation 1ST: Unchanged Patient Education/Counseling: Diagnosis, Treatment Family Education/Counseling: No Family Present Comments Patient presented with the above HPI.--cardiac----workup was initiated. patient was found with the above mentioned diagnosis. the following medications were ordered: please refer to order lists of meds and tests obtained by myself Dr. Lea. Patient ED course and VS have been stabilized. Patient has been reassessed in the ED and remained in a stable condition. Pertinent incidental findings were discussed with the patient and/or family. Patient/family voices understanding and is agreeable with plan. Patient has been observed in the ED adequate length of time to insure improvement/stability. Escalation of care considered: Consideration of escalation to observation or admission Patient was ADMITTED to the medicine team for further evaluation and treatment of their presentation. All the reports of any imaging studies that were ordered by myself were reviewed by myself. Departure 1 Departure Time of Disposition: 12:56 Impression: Primary Impression: Chest pain Disposition: ADMITTED INPATIENT Admit to: Tele Condition: Guarded Discharged With: Self Critical Care Note Critical Care Time?: No Heart Score Heart Score: Heart Score Response (Comments) Value History Moderate Suspicious 1 EKG Normal 0 Age >65 2 Risk Factors >3 or Hx ASHD 2 Troponin Normal limit 0 Total 5 I personally scribed for JULIA LEA DO ([email or web address]) on 03/25/25 at 11:47. Electronically submitted by Tobias Jones ([email or web address]). I personally scribed for JULIA LEA DO ([email or web address]) on 03/25/25 at 14:54. Electronically submitted by Tobias Jones ([email or web address]). I personally scribed for JULIA LEA DO ([email or web address]) on 03/25/25 at 18:38. Electronically submitted by Tobias Jones ([email or web address]). JULIA LEA DO Mar 25, 2025 11:47
[2025-03-25] MEDS: ASPirin-EC 325mg tab PO ONE (12:10)
[2025-03-25] MEDS: NITROGLYCERIN 0.4 MG SL TAB SL ONE (12:13)
[2025-03-25 12:17] LABS: Basophils # (auto) 0 10 ^3/uL (0-0.2); Eosinophils # (auto) 0.1 10 ^3/uL (0-0.8); Hemoglobin 17.7 g/dL (13.5-17.5); Monocytes # (auto) 0.6 10 ^3/uL (0-1.3); Platelet Count (auto) 170 10^3/uL (140-450); Red Blood Cells 5.33 10^6/uL (4.5-5.90)
[2025-03-25 12:19] LABS: Basophils % (auto) 0.3 % (0.0-2.0); Eosinophils % (auto) 2.7 % (0.0-7.0); Hematocrit 52.4 % (41.0-53.0); Lymphocytes # (auto) 0.7 10 ^3/uL (0.4-5.4); Lymphocytes % (auto) 13.1 % (10.0-50.0); Mean Corpuscular Hemoglobin 33.2 pg (28.0-32.0); Mean Corpuscular Hgb Conc. 33.8 g/dL (32.0-36.0); Mean Corpuscular Volume 98.3 fL (80.0-100.0); Monocytes % (auto) 11.1 % (0.0-12.0); Neutrophils % (auto) 72.8 % (37.0-80.0); Nucleated Red Blood Cells % 0.2 %; White Blood Cell 5.5 10^3/uL (4.4-10.8)
--- NOTE | 2025-03-25 12:26 | DVH ---
CHEST RADIOGRAPH Indication: CHEST PAIN Technique: Single frontal view of the chest was obtained COMPARISON: XY CHEST PORTABLE on DOS: 01/24/25, XY CHEST PORTABLE on DOS: 12/04/24, XY CHEST PORTABLE on DOS: 10/13/24, XY CHEST PORTABLE on DOS: 07/29/23, XY CHEST PORTABLE on DOS: 06/11/23 FINDINGS: Lines and Tubes: Median sternotomy Lungs: Clear Pleura: No effusion. No pneumothorax. Cardiomediastinal contours: Unremarkable Bones: Unremarkable IMPRESSION: No acute disease.
[2025-03-25 12:32] LABS: Alanine Aminotransferase 29 U/L (7-40); Alkaline Phosphatase 77 U/L (46-116); Anion Gap 9 (5-15); Blood Urea Nitrogen 19 mg/dL (9-23); Calcium 9.3 mg/dL (8.7-10.4); Carbon Dioxide 21 mmol/L (20-31); Potassium 4.2 mmol/L (3.5-5.1); Sodium 143 mmol/L (136-145); Total Protein 7.6 g/dL (5.7-8.2)
[2025-03-25 12:33] LABS: Albumin 4.5 g/dL (3.2-4.8); Aspartate Aminotransferase 41 U/L (13-40); BUN/Creatinine Ratio 18.1 (10.0-20.0); Bilirubin, Total 0.6 mg/dL (0.2-1.0); Chloride 113 mmol/L (98-107); Glucose 109 mg/dL (74-106)
[2025-03-25 12:35] LABS: Partial Thromboplastin Time 31.3 SEC (24.5-34.5); Prothrombin Time 10.6 sec (9.3-11.8)
--- NOTE | 2025-03-25 16:18 | DVHHP2 ---
Admitting Diagnosis: Chest pain History of Present Illness 74-year-old male presents to emergency department for evaluation of midsternal chest pressure tightness sensation nonradiating that woke him up from asleep at 9:00 a.m. this morning with the associated shortness of breath. Denies any other associated acute symptoms. Patient is status post coronary artery stenting proximally two months ago. He took his morning Plavix and aspirin. He took some pain medication as well this morning which he takes for his chronic low back pain. Patient states that his chest pain is improving. Patient is wearing an abdominal belt for back support. PAST MEDICAL HISTORY: CAD, Cancer, High Lipids, HTN, [place], Thyroid Surgical History: CABG, Hernia Repair, PTCA Family History Family History: Reviewed,noncontributory to illness Social History Smoker: Non-Smoker, Quit Greater Than 1 Year Alcohol: Occasionally Drugs: Denies Drug Use, Marijuana Lives In: Home REVIEW OF SYSTEMS: CONSTITUTIONAL: Denies acute: fever, diaphoresis, chills, generalized weakness. HEAD: Denies acute: headache, photophobia Eyes: Denies acute: Double vision, vision loss, eye pain, eye discharge. EARS: Denies acute: tinnitus, hearing loss, ear discharge, ear pain, THROAT: Denies acute: sore throat, swelling, difficulty swallowing , pain with swallowing, change in voice. NECK: Denies acute: neck pain, neck swelling, stiff neck. HEART: Denies acute : palpitations, LUNGS: Denies acute: , wheezing, cough, hemoptysis ABDOMEN: Denies acute: abdominal pain, Nausea, Vomiting, diarrhea, melena , hematemesis, hematochezia SKIN: Denies acute: rash, redness, lesions, itchiness. EXTREMITIES: Denies acute: calf pain, numbness, tingling, weakness, denies pain in extremity. Denies acute: Low back pain. Neuro: Denies acute: focal neurological deficit, motor or sensory focal neurological deficit, tremors, seizure like activity, confusion, dizziness, change in mental status, loss of bowel or bladder function, cauda equina like symptoms. : Denies acute: dysuria, hematuria, flank pain, increase in urinary frequency. PSYCH: Denies acute: hallucination, suicidal ideation, homicidal ideation. Patient Family History: FH: myocardial infarction G8 FATHER FH: prostate cancer G8 FATHER Hypercholesterolemia G8 FATHER Hypertension G8 MOTHER G8 FATHER Ischemic heart disease G8 MOTHER Allergies: Coded Allergies: [place] (Verified Allergy, Severe, Tingling and swelling of mouth, eyes tearing, 11/01/21) Atorvastatin (Verified Allergy, Unknown, 08/15/24) Uncoded Allergies: bee sting (Allergy, Severe, 01/25/25) Home Meds Active Scripts Clopidogrel Bisulfate (CLOPIDOGREL) 75 Mg Tab, 75 MG PO DAILY for 30 Days, #30 TAB Prov:BONG PERRY MD 01/26/25 Tramadol HCl (Tramadol HCl) 50 Mg Tab, 50 MG PO BID, #20 TAB Prov:JUAN JOSÉ METZ 08/15/24 Metoprolol Succinate (Metoprolol Succinate Er) 25 Mg Tab, 0.5 TAB PO DAILY, #30 TAB 0 Refills Prov:BONG PERRY MD 04/03/23 Meclizine HCl (Meclizine 25) 25 Mg Tab, 25 MG PO DAILY for 10 Days, #10 TAB Prov:EDWARDO GILLIAM MD 02/01/22 Ranolazine (Ranexa) 500 Mg Tab, 500 MG PO BID for 30 Days, #60 TAB Prov:BONG PERRY MD 11/02/21 Reported Medications Ezetimibe (Zetia) 10 Mg Tab, 10 MG PO DAILY, TAB 05/23/22 Melatonin (KP MELATONIN) 3 Mg Tab, 10 MG PO QPM, TAB 05/23/22 Cetirizine Hcl (Kls Aller-En) 10 Mg Tab, 10 MG PO DAILY, TAB 05/23/22 Isosorbide Mononitrate (Isosorbide Mononitrate Er) 30 Mg Tab, 30 MG PO DAILY, TAB 05/23/22 Artificial Tear Solution (ARTIFICIAL TEARS) Tears [place], 2 DROP EACHEYE QIDPRN for DRY EYES, ML 05/23/22 Pravastatin Sodium (PRAVACHOL TABLET) 20 Mg Tb, 80 MG PO HS, TAB 05/23/22 Dicyclomine Hcl (Dicyclomine Hcl) 20 Mg Tab, 20 MG PO QID, TAB 05/23/22 Pantoprazole Sodium Sesquihydr (Protonix) 40 Mg Tab, 40 MG PO BID, #30 TAB 05/23/22 Aspirin (Aspir-81) 81 Mg Tab, 81 MG PO DAILY, TAB 05/23/22 Nitroglycerin (NTROSTAT SUBLINGUAL) 0.4 Mg Sl, 0.4 MG SL PRN PRN for FOR CHEST PAIN *MAY REPEAT EVERY 5 MINUTES X 3 TOTAL IF NO RELIEF, INITIATE ANALGESIC THERAPY. NOTIFY PHYSICIAN *Do not crush. 04/09/21 Current Medications Current Medications Medications (Trade) Dose Ordered Sig/Andrea Route PRN Reason Start Time Stop Time Status Last Admin Aspirin (Ecotrin Enteric Coated Tablet) 81 mg DAILY PO 03/26/25 10:00 UNV Clopidogrel Bisulfate (Plavix) 75 mg DAILY PO 03/26/25 10:00 UNV EZETIMIBE (Zetia) 10 mg DAILY PO 03/26/25 10:00 UNV Meclizine HCl (Antivert Tablet) 25 mg DAILY PO 03/26/25 10:00 UNV Nitroglycerin (Ntrostat Sublingual) 0.4 mg PRN PRN SL FOR CHEST PAIN 03/25/25 17:00 UNV Pantoprazole Sodium (Protonix Tablet) 40 mg BID PO 03/25/25 22:00 UNV Pravastatin Sodium (Pravachol Tablet) 80 mg HS PO 03/25/25 22:00 UNV Ranolazine (Ranexa ER) 500 mg BID PO 03/25/25 22:00 UNV Patient Own Medication 2 drop QIDPRN EACHEYE 03/25/25 18:00 UNV Patient Own Medication 20 mg QID PO 03/25/25 18:00 UNV Patient Own Medication 30 mg DAILY PO 03/26/25 10:00 UNV Patient Own Medication 0.5 tab DAILY PO 03/26/25 10:00 UNV Sodium Chloride (Saline Lock Ns) 10 ml Q8HR IV 03/25/25 22:00 UNV Docusate Sodium (Colace Capsule) 100 mg BIDPRN PRN PO FOR CONSTIPATION 03/25/25 17:00 UNV Vital Signs Vital Signs Date Time Temp Pulse Resp B/P (MAP) Pulse Ox O2 Delivery O2 Flow Rate FiO2 03/25/25 12:22 73 03/25/25 12:17 17 95 Room Air 03/25/25 12:17 98.7 147/82 (103) 98.7 Physical Exam Generally-74 years old male, well nourished well developed. No apparent distress HEENT-atraumatic, Heart-regular rate and rhythm Lungs clear to auscultate Abdomen soft nontender nondistended Musculoskeletal, no edema cyanosis Neuro-AO x3, no focal deficits Results Labs Test 03/25/25 14:50 03/25/25 11:43 Range/Units Troponin I High Sensitivity 9 </=54 ng/L White Blood Count 5.5 4.4-10.8 10^3/uL Red Blood Count 5.33 4.5-5.90 10^6/uL Hemoglobin 17.7 H 13.5-17.5 g/dL Hematocrit 52.4 41.0-53.0 % Mean Corpuscular Volume 98.3 80.0-100.0 fL Mean Corpuscular Hemoglobin 33.2 H 28.0-32.0 pg Mean Corpuscular Hemoglobin Concent 33.8 32.0-36.0 g/dL Red Cell Distribution Width 15.0 H 11.8-14.3 % Platelet Count 170 140-450 10^3/uL Mean Platelet Volume 8.3 6.9-10.8 fL Neutrophils (%) (Auto) 72.8 37.0-80.0 % Lymphocytes (%) (Auto) 13.1 10.0-50.0 % Monocytes (%) (Auto) 11.1 0.0-12.0 % Eosinophils (%) (Auto) 2.7 0.0-7.0 % Basophils (%) (Auto) 0.3 0.0-2.0 % Neutrophils # (Auto) 4.0 1.6-8.6 10 ^3/uL Lymphocytes # (Auto) 0.7 0.4-5.4 10 ^3/uL Monocytes # (Auto) 0.6 0-1.3 10 ^3/uL Eosinophils # (Auto) 0.1 0-0.8 10 ^3/uL Basophils # (Auto) 0 0-0.2 10 ^3/uL Nucleated Red Blood Cells 0.2 % Prothrombin Time 10.6 9.3-11.8 sec Prothrombin Time INR 1.00 0.9-1.15 Activated Partial Thromboplast Time 31.3 24.5-34.5 SEC Sodium Level 143 136-145 mmol/L Potassium Level 4.2 3.5-5.1 mmol/L Chloride Level 113 H 98-107 mmol/L Carbon Dioxide Level 21 20-31 mmol/L Anion Gap 9 5-15 Blood Urea Nitrogen 19 9-23 mg/dL Creatinine 1.05 0.700-1.30 mg/dL Glomerular Filtration Rate Calc 74 >90 mL/min BUN/Creatinine Ratio 18.1 10.0-20.0 Serum Glucose 109 H 74-106 mg/dL Calcium Level 9.3 8.7-10.4 mg/dL Total Bilirubin 0.6 0.2-1.0 mg/dL Aspartate Amino Transferase (AST) 41 H 13-40 U/L Alanine Aminotransferase (ALT) 29 7-40 U/L Alkaline Phosphatase 77 46-116 U/L Total Protein 7.6 5.7-8.2 g/dL Albumin 4.5 3.2-4.8 g/dL Primary Diagnosis Chest pain rule out ACS Acute back pain Plan Patient has moderate to high-risk patient due to recent unstable angina stent placement Troponin negative x3 Check EKG NPO after midnight Nuclear stress test tomorrow Check echo of the heart X-ray of lumbar spine three view Cardiac diet Resume home meds Full code Lovenox for DVT prophylaxis PPI prophylaxis Plan discussed with: Patient Problems List: (1) Acute chest pain Status: Acute Date of Service: Mar 25, 2025 Billing Provider: CELE HERRERA MD Common Visit Codes: [id number] INP/OBS CARE (MOD) CELE HERRERA MD Mar 25, 2025 16:18
[2025-03-25] MEDS ORDERED: HYDROmorphone HCL 2 MG/ML VL/or syr IV PRN (17:00)
[2025-03-25] MEDS ORDERED: MORPHINE SULFATE INJ 2 MG/ml SYRG IV PRN (17:00)
[2025-03-25] MEDS ORDERED: NITROGLYCERIN 0.4 MG SL TAB SL PRN ×2 (17:00)
[2025-03-25] MEDS ORDERED: ONDANSETRON HCL 4 MG/2 ML VIAL IV PRN (17:00)
[2025-03-25] MEDS ORDERED: DOCUSATE SOD 100 MG CAP PO PRN (17:00)
[2025-03-25] MEDS ORDERED: ACETAMINOPHEN 325 MG TAB PO PRN (17:00)
--- NOTE | 2025-03-25 17:35 | DVH ---
INDICATION: Back pain TECHNIQUE: 3 views of the lumbar spine were obtained. COMPARISON: XY LUMBAR SPINE 3 VIEW on DOS: 08/15/24 FINDINGS: There are no acute fractures or subluxations. Old compression fracture of T12, unchanged from 08/15/2024 IMPRESSION: 1. No acute fracture or subluxation. Mild old compression fracture of T12.
[2025-03-25 17:51] VITALS: PULSE 72; RESP 16; O2SAT 96
[2025-03-25 18:36] VITALS: BP 136/92; PULSE 64; PULSE 66; RESP 16; TEMP 97.8; O2SAT 99
[2025-03-25] MEDS: HYDROcodone-ACET 5/325MG TAB PO PRN (18:53)
--- NOTE | 2025-03-25 18:53 | ECG ---
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
[2025-03-25 20:00] VITALS: PULSE 66; RESP 20; O2SAT 99
[2025-03-25 21:00] VITALS: BP 136/92; PULSE 43; RESP 20; TEMP 97.8; O2SAT 99
[2025-03-25] MEDS: SODIUM CHLOR 0.9% PF (SALINE LOCK) 10ML VIAL/SYR IV SCH (21:02)
[2025-03-25] MEDS ORDERED: ARTIFICIAL TEARS 15ml EACHEYE PRN (22:00)
[2025-03-25] MEDS: PRAVASTATIN SODIUM 20 MG TAB PO SCH (22:00)
[2025-03-25] MEDS: DICYCLOMINE HCL 10 MG CAP PO SCH (23:03)
[2025-03-25] MEDS: METOPROLOL TARTRATE 25 MG TAB PO SCH (23:07)
[2025-03-25] MEDS: RANOLAZINE ER 500 MG TAB PO SCH (23:08)
[2025-03-25] MEDS: PANTOPRAZOLE 40 MG TAB PO SCH (23:12)
[2025-03-26 01:00] VITALS: BP 130/90; PULSE 46; RESP 18; O2SAT 98
[2025-03-26 05:00] VITALS: BP 122/88; PULSE 87; RESP 18; TEMP 98.1; O2SAT 99
[2025-03-26 06:57] LABS: Basophils # (auto) 0 10 ^3/uL (0-0.2); Basophils % (auto) 0.5 % (0.0-2.0); Eosinophils # (auto) 0.2 10 ^3/uL (0-0.8); Eosinophils % (auto) 3.4 % (0.0-7.0); Hematocrit 50.1 % (41.0-53.0); Hemoglobin 17.2 g/dL (13.5-17.5); Lymphocytes % (auto) 14.9 % (10.0-50.0); Mean Corpuscular Hemoglobin 33.4 pg (28.0-32.0); Mean Corpuscular Hgb Conc. 34.2 g/dL (32.0-36.0); Mean Corpuscular Volume 97.5 fL (80.0-100.0); Monocytes # (auto) 0.8 10 ^3/uL (0-1.3); Monocytes % (auto) 11.1 % (0.0-12.0); Neutrophils # (auto) 4.9 10 ^3/uL (1.6-8.6); Neutrophils % (auto) 70.1 % (37.0-80.0); Nucleated Red Blood Cells % 0.1 %; Platelet Count (auto) 155 10^3/uL (140-450); Red Blood Cells 5.14 10^6/uL (4.5-5.90); Red Cell Distribution Width 14.8 % (11.8-14.3); White Blood Cell 6.9 10^3/uL (4.4-10.8)
[2025-03-26 07:01] LABS: Alanine Aminotransferase 25 U/L (7-40); Albumin 3.8 g/dL (3.2-4.8); Alkaline Phosphatase 68 U/L (46-116); Anion Gap 9 (5-15); Aspartate Aminotransferase 34 U/L (13-40); BUN/Creatinine Ratio 22.7 (10.0-20.0); Bilirubin, Total 0.7 mg/dL (0.2-1.0); Calcium 8.8 mg/dL (8.7-10.4); Carbon Dioxide 20 mmol/L (20-31); Glucose 91 mg/dL (74-106); Potassium 4.1 mmol/L (3.5-5.1); Sodium 140 mmol/L (136-145); Total Protein 6.5 g/dL (5.7-8.2)
[2025-03-26 07:30] VITALS: PULSE 63; RESP 16; O2SAT 95
[2025-03-26 07:36] LABS: Blood Urea Nitrogen 25 mg/dL (9-23); Chloride 111 mmol/L (98-107)
--- NOTE | 2025-03-26 08:50 | ECG ---
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
[2025-03-26 09:00] VITALS: BP 144/90; PULSE 63; RESP 16; TEMP 97.4; O2SAT 95
[2025-03-26] MEDS: REGADENOSON 0.4 MG/5 ML SYRG IV ONE (09:11)
[2025-03-26] MEDS ORDERED: PATIENTS OWN MEDICATION (Isosorbide Mononitrate (Isosorbide Mononitrate Er) 30 MG) PO SCH (10:00)
[2025-03-26] MEDS: EZETIMIBE 10 MG TAB PO SCH (10:26)
[2025-03-26] MEDS: ASPirin-EC 81 mg tab PO SCH (10:26)
[2025-03-26] MEDS: MECLIZINE HCL 25 MG TAB PO SCH (10:26)
[2025-03-26] MEDS: CLOPIDOGREL BISULFATE 75 MG TAB PO SCH (10:26)
[2025-03-26] MEDS: ENOXAPARIN SOD 40 MG/0.4 ML SYRINGE SC SCH (10:27)
--- NOTE | 2025-03-26 11:34 | DVHPNRES ---
Progress Note Date Seen: Mar 26, 2025 Resident Creating Document: TATIANA RUSH RESIDENT Subjective Review of Systems: HEENT:Normal Objective vital signs Vital Sign Date Time Temp Pulse Resp B/P (MAP) Pulse Ox O2 Delivery O2 Flow Rate FiO2 03/26/25 10:27 63 144/90 03/26/25 09:00 97.4 16 95 97.4 03/26/25 07:30 Room Air* 0 21 Total Intake and Output 03/25/25 03/25/25 03/26/25 15:00 23:00 07:00 Intake Total 400 ml Balance 400 ml medications Current Medications Medications Dose Ordered Sig/Andrea Route Start Time Stop Time Status Last Admin Dose Admin Aspirin 81 mg DAILY PO 03/26/25 10:00 03/26/25 10:26 81 MG Clopidogrel Bisulfate 75 mg DAILY PO 03/26/25 10:00 03/26/25 10:26 75 MG EZETIMIBE 10 mg DAILY PO 03/26/25 10:00 03/26/25 10:26 10 MG Meclizine HCl 25 mg DAILY PO 03/26/25 10:00 03/26/25 10:26 25 MG Pantoprazole Sodium 40 mg BIDAC PO 03/25/25 21:51 03/26/25 06:33 40 MG Pravastatin Sodium 40 mg HS PO 03/25/25 22:00 Ranolazine 500 mg BID PO 03/25/25 22:00 03/26/25 10:26 500 MG Artificial Tears 2 drop QIDPRN PRN EACHEYE 03/25/25 22:00 Dicyclomine HCl 20 mg QID PO 03/25/25 22:00 03/26/25 10:31 20 MG Metoprolol Tartrate 25 mg BID PO 03/25/25 22:00 03/26/25 10:27 25 MG Sodium Chloride 10 ml Q8HR IV 03/25/25 22:00 03/26/25 06:33 10 ML Docusate Sodium 100 mg BIDPRN PRN PO 03/25/25 17:00 Acetaminophen 650 mg Q6HP PRN PO 03/25/25 17:00 Acetaminophen/ Hydrocodone Bitart 1 tab Q4HP PRN PO 03/25/25 17:00 03/26/25 03:01 1 TAB Hydromorphone HCl 0.5 mg Q4HP PRN IV 03/25/25 17:00 Ondansetron HCl 4 mg Q4HP PRN IV 03/25/25 17:00 Enoxaparin Sodium 40 mg DAILY SC 03/26/25 10:00 03/26/25 10:27 40 MG Nitroglycerin 0.4 mg Q5MINP PRN SL 03/25/25 17:00 Morphine Sulfate 2 mg Q30M PRN IV 03/25/25 17:00 Examination: GENERAL:Normal laboratory and microbiology Laboratory Tests 03/26/25 05:24 Test 03/26/25 05:24 Range/Units Serum Glucose 91 74-106 mg/dL My Orders My Orders Orders - TATIANA RUSH Procedure Category Date Status Time * Cardiology Consult CONS 03/26/25 Transmitted 08:48 Cardiac DIET 03/26/25 Transmitted Diet-2gna,Lofat,Lochol Lunch Date of Service: Mar 26, 2025 Billing Provider: MONET TONEY DO Common Visit Codes: [id number] INP/OBS CARE(HIGH) TATIANA RUSH RESIDENT Mar 26, 2025 11:34 MONET TONEY DO Mar 27, 2025 22:19
--- NOTE | 2025-03-26 12:10 | DVHINCON2 ---
Date Seen: Mar 26, 2025 Referring Physician MD Rylan resident Reason for Consultation Chest pain History of Present Illness This is a 74-year-old male patient who presents to emergency room with chief complaint of chest pain. The patient reports experiencing intermittent chest tightness for approximately one week. He describes the pain as unprovoked, intermittent, tight in nature, substernal and nonradiating. Associated symptoms include shortness of breath. Initial twelve lead electrocardiogram reveals normal sinus rhythm with right bundle branch block. Initial troponin level of 10ng/L with flat trend thereafter. Significant past medical history includes severe coronary artery disease status post triple-vessel CABG, multiple PTCAs X 10 RENAE (on ASA and Plavix), transient supraventricular tachycardia, hypertension, dyslipidemia, thyroid disease and benign prostate hyperplasia. The patient reports that he follows up with a housing property manager Dr. Lindsay in the outpatient setting. The patient was recently seen at this facility and underwent a coronary angiogram with left heart catheterization on 01/26/2025 in which three drug-eluting stents were placed to the RCA. Past Medical History Past medical history reviewed. No other significant than mentioned above. Past Surgical History CABG in 2018 Family History: FH: myocardial infarction G8 FATHER FH: prostate cancer G8 FATHER Hypercholesterolemia G8 FATHER Hypertension G8 MOTHER G8 FATHER Ischemic heart disease G8 MOTHER Family History Family history reviewed. Social History Patient has a 15 pack-year history, quit smoking approximately 30 years ago Patient denies any illicit drug use Patient denies any alcohol use Allergies: Coded Allergies: [place] (Verified Allergy, Severe, Tingling and swelling of mouth, eyes tearing, 11/01/21) Atorvastatin (Verified Allergy, Unknown, 08/15/24) Uncoded Allergies: bee sting (Allergy, Severe, 01/25/25) Home Meds Active Scripts Clopidogrel Bisulfate (CLOPIDOGREL) 75 Mg Tab, 75 MG PO DAILY for 30 Days, #30 TAB Prov:BONG PERRY MD 01/26/25 Tramadol HCl (Tramadol HCl) 50 Mg Tab, 50 MG PO BID, #20 TAB Prov:JUAN JOSÉ METZ 08/15/24 Metoprolol Succinate (Metoprolol Succinate Er) 25 Mg Tab, 0.5 TAB PO DAILY, #30 TAB 0 Refills Prov:BONG PERRY MD 04/03/23 Meclizine HCl (Meclizine 25) 25 Mg Tab, 25 MG PO DAILY for 10 Days, #10 TAB Prov:EDWARDO GILLIAM MD 02/01/22 Ranolazine (Ranexa) 500 Mg Tab, 500 MG PO BID for 30 Days, #60 TAB Prov:BONG PERRY MD 11/02/21 Reported Medications Ezetimibe (Zetia) 10 Mg Tab, 10 MG PO DAILY, TAB 05/23/22 Melatonin ( MELATONIN) 3 Mg Tab, 10 MG PO QPM, TAB 05/23/22 Cetirizine Hcl (Kls Aller-En) 10 Mg Tab, 10 MG PO DAILY, TAB 05/23/22 Isosorbide Mononitrate (Isosorbide Mononitrate Er) 30 Mg Tab, 30 MG PO DAILY, TAB 05/23/22 Artificial Tear Solution (ARTIFICIAL TEARS) Tears Salena, 2 DROP EACHEYE QIDPRN for DRY EYES, ML 05/23/22 Pravastatin Sodium (PRAVACHOL TABLET) 20 Mg Tb, 80 MG PO HS, TAB 05/23/22 Dicyclomine Hcl (Dicyclomine Hcl) 20 Mg Tab, 20 MG PO QID, TAB 05/23/22 Pantoprazole Sodium Sesquihydr (Protonix) 40 Mg Tab, 40 MG PO BID, #30 TAB 05/23/22 Aspirin (Aspir-81) 81 Mg Tab, 81 MG PO DAILY, TAB 05/23/22 Nitroglycerin (NTROSTAT SUBLINGUAL) 0.4 Mg Sl, 0.4 MG SL PRN PRN for FOR CHEST PAIN *MAY REPEAT EVERY 5 MINUTES X 3 TOTAL IF NO RELIEF, INITIATE ANALGESIC THERAPY. NOTIFY PHYSICIAN *Do not crush. 04/09/21 Home Meds Home medications reviewed. Current Medications Current Medications Medications (Trade) Dose Ordered Sig/Andrea Route PRN Reason Start Time Stop Time Status Last Admin Aspirin (Ecotrin Enteric Coated Tablet) 81 mg DAILY PO 03/26/25 10:00 03/26/25 10:26 Clopidogrel Bisulfate (Plavix) 75 mg DAILY PO 03/26/25 10:00 03/26/25 10:26 EZETIMIBE (Zetia) 10 mg DAILY PO 03/26/25 10:00 03/26/25 10:26 Meclizine HCl (Antivert Tablet) 25 mg DAILY PO 03/26/25 10:00 03/26/25 10:26 Nitroglycerin (Ntrostat Sublingual) 0.4 mg PRN PRN SL FOR CHEST PAIN 03/25/25 17:00 03/25/25 17:07 DC Pantoprazole Sodium (Protonix Tablet) 40 mg BIDAC PO 03/25/25 21:51 03/26/25 06:33 Pravastatin Sodium (Pravachol Tablet) 40 mg HS PO 03/25/25 22:00 Ranolazine (Ranexa ER) 500 mg BID PO 03/25/25 22:00 03/26/25 10:26 Artificial Tears (Tears Naturale) 2 drop QIDPRN PRN EACHEYE DRY EYES 03/25/25 22:00 Dicyclomine HCl (Bentyl Capsule) 20 mg QID PO 03/25/25 22:00 03/26/25 10:31 Patient Own Medication 30 mg DAILY PO 03/26/25 10:00 03/25/25 21:57 DC Metoprolol Tartrate (Lopressor Tablet) 25 mg BID PO 03/25/25 22:00 03/26/25 10:27 Sodium Chloride (Saline Lock Ns) 10 ml Q8HR IV 03/25/25 22:00 03/26/25 06:33 Docusate Sodium (Colace Capsule) 100 mg BIDPRN PRN PO FOR CONSTIPATION 03/25/25 17:00 Acetaminophen (Tylenol Tablet) 650 mg Q6HP PRN PO PAIN SCALE 1-3 OR TEMP>100.4 03/25/25 17:00 Acetaminophen/ Hydrocodone Bitart ([place] 5/325MG Tab) 1 tab Q4HP PRN PO MODERATE PAIN (4-6 PAIN SCALE) 03/25/25 17:00 03/26/25 11:44 Hydromorphone HCl (Dilaudid Injection) 0.5 mg Q4HP PRN IV SEVERE PAIN (7-10 PAIN SCALE) 03/25/25 17:00 Ondansetron HCl (Zofran) 4 mg Q4HP PRN IV NAUSEA / VOMITING 03/25/25 17:00 Enoxaparin Sodium (Lovenox) 40 mg DAILY SC 03/26/25 10:00 03/26/25 10:27 Nitroglycerin (Ntrostat Sublingual) 0.4 mg Q5MINP PRN SL FOR CHEST PAIN 03/25/25 17:00 Morphine Sulfate 2 mg Q30M PRN IV FOR CHEST PAIN 03/25/25 17:00 Review of Systems Constitutional: No symptom reported Ears, Nose, & Throat: No symptom reported Eyes: No symptom reported Neurological: No symptoms reported Pulmonary/Respiratory: Shortness of breath Cardiovascular: Chest pain Gastrointestinal: No symptom reported Genitourinary: No symptom reported Musculoskeletal: No symptom reported Skin: No symptom reported Psychiatric: No symptom reported Endocrine: No symptom reported Hematologic/Lymphatic: No symptom reported Vital Signs Vital Signs Date Time Temp Pulse Resp B/P (MAP) Pulse Ox O2 Delivery O2 Flow Rate FiO2 03/26/25 10:27 63 144/90 03/26/25 09:00 97.4 16 95 97.4 03/26/25 07:30 Room Air* 0 21 Physical Exam General Appearance: Cooperative. Well-developed. Well-nourished. No acute distress. Pulmonary/Respiratory: Clear, bilateral breaths sounds. Cardiovascular/Chest: Regular rate and rhythm. Peripheral Pulses: 2+ Radial (R). 2+ Radial (L). 2+ Pedal (R). 2+ Pedal (L) Abdominal Exam: Normal bowel sounds. Ankle Exam: Negative ankle edema Lower extremities: Negative lower extremity edema Neuro/Mental Status: A/OX4, coherent. Thoughts/Psych: Normal thought pattern. Appropriate mood and affect. Good judgment and insight. Appearance: No acute distress. Skin Exam: Normal inspection. Normal color. Warm and dry. Labs/Diagnostic Data Labs Test 03/26/25 05:24 03/25/25 14:50 03/25/25 11:43 Range/Units White Blood Count 6.9 # 4.4-10.8 10^3/uL Red Blood Count 5.14 4.5-5.90 10^6/uL Hemoglobin 17.2 13.5-17.5 g/dL Hematocrit 50.1 41.0-53.0 % Mean Corpuscular Volume 97.5 80.0-100.0 fL Mean Corpuscular Hemoglobin 33.4 H 28.0-32.0 pg Mean Corpuscular Hemoglobin Concent 34.2 32.0-36.0 g/dL Red Cell Distribution Width 14.8 H 11.8-14.3 % Platelet Count 155 140-450 10^3/uL Mean Platelet Volume 8.7 6.9-10.8 fL Neutrophils (%) (Auto) 70.1 37.0-80.0 % Lymphocytes (%) (Auto) 14.9 10.0-50.0 % Monocytes (%) (Auto) 11.1 0.0-12.0 % Eosinophils (%) (Auto) 3.4 0.0-7.0 % Basophils (%) (Auto) 0.5 0.0-2.0 % Neutrophils # (Auto) 4.9 1.6-8.6 10 ^3/uL Lymphocytes # (Auto) 1.0 0.4-5.4 10 ^3/uL Monocytes # (Auto) 0.8 0-1.3 10 ^3/uL Eosinophils # (Auto) 0.2 0-0.8 10 ^3/uL Basophils # (Auto) 0 0-0.2 10 ^3/uL Nucleated Red Blood Cells 0.1 % Sodium Level 140 136-145 mmol/L Potassium Level 4.1 3.5-5.1 mmol/L Chloride Level 111 H 98-107 mmol/L Carbon Dioxide Level 20 20-31 mmol/L Anion Gap 9 5-15 Blood Urea Nitrogen 25 H 9-23 mg/dL Creatinine 1.10 0.700-1.30 mg/dL Glomerular Filtration Rate Calc 70 >90 mL/min BUN/Creatinine Ratio 22.7 H 10.0-20.0 Serum Glucose 91 74-106 mg/dL Calcium Level 8.8 8.7-10.4 mg/dL Total Bilirubin 0.7 0.2-1.0 mg/dL Aspartate Amino Transferase (AST) 34 13-40 U/L Alanine Aminotransferase (ALT) 25 7-40 U/L Alkaline Phosphatase 68 46-116 U/L Total Protein 6.5 5.7-8.2 g/dL Albumin 3.8 3.2-4.8 g/dL Troponin I High Sensitivity 9 </=54 ng/L Prothrombin Time 10.6 9.3-11.8 sec Prothrombin Time INR 1.00 0.9-1.15 Activated Partial Thromboplast Time 31.3 24.5-34.5 SEC Assessment Chest pain, rule out coronary ischemia Severe coronary artery disease status post triple-vessel CABG Multiple PTCAs X 10 RENAE (on ASA and Plavix) Hypertension Dyslipidemia Thyroid disease BPH Plan/Recommendation We will continue with the following plan/recommendations (Dr. Land): * Transthoracic echocardiogram from 01/25/2025 reveals EF 55% * Chest pain protocol * HEART score: 5 points (moderate score) * Continue dual antiplatelet therapy * Lipid-lowering agent * Close Cardiac surveillance * Nuclear stress test The patient was ordered to undergo a nuclear stress test by ER physician. Awaiting nuclear scan results at this time. Thank you for allowing us to care for this patient. Please call with any questions or concerns. Critical care time spent: 44 minutes This medical document was created using an electronic medical record system with voice recognition software and computerized dictation system. Although this document has been carefully reviewed, there might still be some phonetic and typographical errors. Occasional wrong-word or ``sound-alike substitutions may have occurred due to the inherent limitations of voice recognition software. These areas are purely typographical due to imperfections of the software programs and do not reflect any compromise in the patient's medical care. Please read the chart carefully and recognize, using context, where these substitutions have occurred. Plan discussed with: Patient NYHA Physical activity limitations: NA Date of Service: Mar 26, 2025 Billing Provider: JM BAH Cardiology Common Codes: [id number] [facility] JM BAH Mar 26, 2025 12:10
[2025-03-26 13:00] VITALS: BP 126/78; PULSE 73; RESP 16; TEMP 97.5; O2SAT 93
[2025-03-26 16:15] VITALS: BP 126/79; PULSE 73; RESP 16; TEMP 97.5; O2SAT 93
--- NOTE | 2025-03-26 16:22 | DVHDSRES ---
Discharge Summary Date of Admission Resident Creating Document: TATIANA RUSH RESIDENT Mar 25, 2025 at 16:59 Date of Discharge: Mar 26, 2025 Admitting Diagnosis Chest pain, rule out coronary ischemia Wounds: No wound was present Labs/Diagnostic Data: Laboratory Results Test 03/26/25 05:24 03/25/25 14:50 03/25/25 11:43 White Blood Count 6.9 10^3/uL (4.4-10.8) Red Blood Count 5.14 10^6/uL (4.5-5.90) Hemoglobin 17.2 g/dL (13.5-17.5) Hematocrit 50.1 % (41.0-53.0) Mean Corpuscular Volume 97.5 fL (80.0-100.0) Mean Corpuscular Hemoglobin 33.4 pg (28.0-32.0) Mean Corpuscular Hemoglobin Concent 34.2 g/dL (32.0-36.0) Red Cell Distribution Width 14.8 % (11.8-14.3) Platelet Count 155 10^3/uL (140-450) Mean Platelet Volume 8.7 fL (6.9-10.8) Neutrophils (%) (Auto) 70.1 % (37.0-80.0) Lymphocytes (%) (Auto) 14.9 % (10.0-50.0) Monocytes (%) (Auto) 11.1 % (0.0-12.0) Eosinophils (%) (Auto) 3.4 % (0.0-7.0) Basophils (%) (Auto) 0.5 % (0.0-2.0) Neutrophils # (Auto) 4.9 10 ^3/uL (1.6-8.6) Lymphocytes # (Auto) 1.0 10 ^3/uL (0.4-5.4) Monocytes # (Auto) 0.8 10 ^3/uL (0-1.3) Eosinophils # (Auto) 0.2 10 ^3/uL (0-0.8) Basophils # (Auto) 0 10 ^3/uL (0-0.2) Nucleated Red Blood Cells 0.1 % Sodium Level 140 mmol/L (136-145) Potassium Level 4.1 mmol/L (3.5-5.1) Chloride Level 111 mmol/L (98-107) Carbon Dioxide Level 20 mmol/L (20-31) Anion Gap 9 (5-15) Blood Urea Nitrogen 25 mg/dL (9-23) Creatinine 1.10 mg/dL (0.700-1.30) Glomerular Filtration Rate Calc 70 mL/min (>90) BUN/Creatinine Ratio 22.7 (10.0-20.0) Serum Glucose 91 mg/dL (74-106) Calcium Level 8.8 mg/dL (8.7-10.4) Total Bilirubin 0.7 mg/dL (0.2-1.0) Aspartate Amino Transferase (AST) 34 U/L (13-40) Alanine Aminotransferase (ALT) 25 U/L (7-40) Alkaline Phosphatase 68 U/L (46-116) Total Protein 6.5 g/dL (5.7-8.2) Albumin 3.8 g/dL (3.2-4.8) Troponin I High Sensitivity 9 ng/L (</=54) Prothrombin Time 10.6 sec (9.3-11.8) Prothrombin Time INR 1.00 (0.9-1.15) Activated Partial Thromboplast Time 31.3 SEC (24.5-34.5) Other Laboratory Tests 03/26/25 05:24 Brief Hx & Hospital Course: This is a 74-year-old male presents to emergency department for evaluation of midsternal chest pressure tightness sensation nonradiating that woke him up from asleep at 9:00 a.m. this morning with the associated shortness of breath. Denies any other associated acute symptoms. Patient is status post coronary artery stenting proximally two months ago. He took his morning Plavix and aspirin. He took some pain medication as well this morning which he takes for his chronic low back pain. Patient states that his chest pain is improving. Patient is wearing an abdominal belt for back support. Initial EKG revealed RBBB with normal sinus rhythm and old inferior ischemia and troponins were unremarkable. Patient underwent Cardiolite stress test today and the procedure was uneventful. Patient is being discharged to home today and advised to follow up with laborer tin can in next Saturday to discuss the Cardiolite stress test report and was also advised to follow up with PCP in 1 week. Physical examination: General Appearance: Alert, Oriented X3, Cooperative, No acute distress HEENT: Atraumatic, PERRLA, EOMI, Mucous membrane moist/pink Respiratory: Clear to auscultation, Normal air movement Cardiovascular: Regular rate, Normal S1, Normal S2, No murmurs, no chest wall tenderness Abdominal: Normal bowel sounds, Soft, No tenderness, No hepatospenomegaly, No masses Extremities: No clubbing, No cyanosis, No edema, Normal pulses, No tenderness/swelling Skin: No rashes, No breakdown, No significant lesion Neuro: Normal gait, Normal speech, Strength at 5/5 X4 ext, Normal tone, Sensation intact, grossly intact cranial nerves. Psych/Mental Status: Mental status NL, Mood NL Consults/Reason for consult Cardiology was consulted Operations or Procedures INDICATION: Back pain TECHNIQUE: 3 views of the lumbar spine were obtained. COMPARISON: XY LUMBAR SPINE 3 VIEW on DOS: 08/15/24 FINDINGS: There are no acute fractures or subluxations. Old compression fracture of T12, unchanged from 08/15/2024 IMPRESSION: 1. No acute fracture or subluxation. Mild old compression fracture of T12. CHEST RADIOGRAPH Indication: CHEST PAIN Technique: Single frontal view of the chest was obtained COMPARISON: XY CHEST PORTABLE on DOS: 01/24/25, XY CHEST PORTABLE on DOS: 12/04/24, XY CHEST PORTABLE on DOS: 10/13/24, XY CHEST PORTABLE on DOS: 07/29/23, XY CHEST PORTABLE on DOS: 06/11/23 FINDINGS: Lines and Tubes: Median sternotomy Lungs: Clear Pleura: No effusion. No pneumothorax. Cardiomediastinal contours: Unremarkable Bones: Unremarkable IMPRESSION: No acute disease Condition at Discharge: Stable Final Diagnosis/Problems List Chest pain, rule out coronary ischemia Severe coronary artery disease status post triple-vessel CABG Multiple PTCAs X 10 RENAE (on ASA and Plavix) Hypertensive heart disease Acute back pain Discharge Disposition: Home Discharge Instruct/Medications Diet: Cardiac 2g Na,low cholest Activity: No Restrictions, As Tolerated Follow Up/Referral: Follow up with PCP in 1 week. Follow up with [employer] Dr. Lindsay in next Saturday to discuss Cardiolite stress test report. Medications: Continue home medications. Discharge Statement: "Patient was advised to return to the ER or call 911 if any headaches, dizziness, shortness of breath, chest pain, abdominal pain, bleeding, fevers, or worsening of medical condition. Patient was counseled about treatment plan, medications, possible side effects, patientverbalized understanding. All questions were answered to the best of my ability. This discharge took greater then 30 minutes in planning, reviewing documentation, counseling the patient, and discussing with other team members." ASSESSMENT ASSESSMENT Assessment Chest pain rule out ACS Acute back pain Date of Service: Mar 26, 2025 Billing Provider: MONET TONEY DO Common Visit Codes: [id number]/OBS DISCH DAY >30min TATIANA RUSH RESIDENT Mar 26, 2025 16:22 MONET TONEY DO Mar 27, 2025 22:19
--- NOTE | 2025-03-26 21:07 | DVHINCON2 ---
Date Seen: Mar 26, 2025 Referring Physician MD Rylan resident Reason for Consultation Chest pain History of Present Illness This is a 74-year-old male with a past medical history of severe coronary artery disease status post triple-vessel CABG, multiple PTCAs X 10 RENAE (on ASA and Plavix), transient supraventricular tachycardia, hypertension, dyslipidemia, thyroid disease and benign prostate hyperplasia who presents to emergency room with a complaint of chest pain. The patient reports experiencing intermittent chest tightness for approximately one week. He describes the pain as unprovoked, intermittent, tight in nature, substernal and nonradiating. Associated symptoms include shortness of breath. Initial twelve lead electrocardiogram reveals normal sinus rhythm with right bundle branch block. I nitial troponin level of 10ng/L with flat trend thereafter. Chest x-ray showed NAD. The patient reports that he follows up with a recovery specialist Dr. Lindsay in the outpatient setting. The patient was recently seen at this facility and underwent a coronary angiogram with left heart catheterization on 01/26/2025 in which three drug-eluting stents were placed to the RCA. Patient was admitted to the hospital. I am asked to consult on this patient. Past Medical History Past medical history reviewed. No other significant than mentioned above. Past Surgical History CABG in 2018 Family History: FH: myocardial infarction G8 FATHER FH: prostate cancer G8 FATHER Hypercholesterolemia G8 FATHER Hypertension G8 MOTHER G8 FATHER Ischemic heart disease G8 MOTHER Allergies: Coded Allergies: [place] (Verified Allergy, Severe, Tingling and swelling of mouth, eyes tearing, 11/01/21) Atorvastatin (Verified Allergy, Unknown, 08/15/24) Uncoded Allergies: bee sting (Allergy, Severe, 01/25/25) Home Meds Active Scripts Clopidogrel Bisulfate (CLOPIDOGREL) 75 Mg Tab, 75 MG PO DAILY for 30 Days, #30 TAB Prov:BONG PERRY MD 01/26/25 Tramadol HCl (Tramadol HCl) 50 Mg Tab, 50 MG PO BID, #20 TAB Prov:JUAN JOSÉ METZ 08/15/24 Metoprolol Succinate (Metoprolol Succinate Er) 25 Mg Tab, 0.5 TAB PO DAILY, #30 TAB 0 Refills Prov:BONG PERRY MD 04/03/23 Meclizine HCl (Meclizine 25) 25 Mg Tab, 25 MG PO DAILY for 10 Days, #10 TAB Prov:EDWARDO GILLIAM MD 02/01/22 Ranolazine (Ranexa) 500 Mg Tab, 500 MG PO BID for 30 Days, #60 TAB Prov:BONG PERRY MD 11/02/21 Reported Medications Ezetimibe (Zetia) 10 Mg Tab, 10 MG PO DAILY, TAB 05/23/22 Melatonin (KP MELATONIN) 3 Mg Tab, 10 MG PO QPM, TAB 05/23/22 Cetirizine Hcl (Kls Aller-En) 10 Mg Tab, 10 MG PO DAILY, TAB 05/23/22 Isosorbide Mononitrate (Isosorbide Mononitrate Er) 30 Mg Tab, 30 MG PO DAILY, TAB 05/23/22 Artificial Tear Solution (ARTIFICIAL TEARS) Tears [place], 2 DROP EACHEYE QIDPRN for DRY EYES, ML 05/23/22 Pravastatin Sodium (PRAVACHOL TABLET) 20 Mg Tb, 80 MG PO HS, TAB 05/23/22 Dicyclomine Hcl (Dicyclomine Hcl) 20 Mg Tab, 20 MG PO QID, TAB 05/23/22 Pantoprazole Sodium Sesquihydr (Protonix) 40 Mg Tab, 40 MG PO BID, #30 TAB 05/23/22 Aspirin (Aspir-81) 81 Mg Tab, 81 MG PO DAILY, TAB 05/23/22 Nitroglycerin (NTROSTAT SUBLINGUAL) 0.4 Mg Sl, 0.4 MG SL PRN PRN for FOR CHEST PAIN *MAY REPEAT EVERY 5 MINUTES X 3 TOTAL IF NO RELIEF, INITIATE ANALGESIC THERAPY. NOTIFY PHYSICIAN *Do not crush. 04/09/21 Current Medications Current Medications Medications (Trade) Dose Ordered Sig/Andrea Route PRN Reason Start Time Stop Time Status Last Admin Aspirin (Ecotrin Enteric Coated Tablet) 81 mg DAILY PO 03/26/25 10:00 03/26/25 10:26 Clopidogrel Bisulfate (Plavix) 75 mg DAILY PO 03/26/25 10:00 03/26/25 10:26 EZETIMIBE (Zetia) 10 mg DAILY PO 03/26/25 10:00 03/26/25 10:26 Meclizine HCl (Antivert Tablet) 25 mg DAILY PO 03/26/25 10:00 03/26/25 10:26 Nitroglycerin (Ntrostat Sublingual) 0.4 mg PRN PRN SL FOR CHEST PAIN 03/25/25 17:00 03/25/25 17:07 DC Pantoprazole Sodium (Protonix Tablet) 40 mg BIDAC PO 03/25/25 21:51 03/26/25 06:33 Pravastatin Sodium (Pravachol Tablet) 40 mg HS PO 03/25/25 22:00 Ranolazine (Ranexa ER) 500 mg BID PO 03/25/25 22:00 03/26/25 10:26 Artificial Tears (Tears Naturale) 2 drop QIDPRN PRN EACHEYE DRY EYES 03/25/25 22:00 Dicyclomine HCl (Bentyl Capsule) 20 mg QID PO 03/25/25 22:00 03/26/25 10:31 Patient Own Medication 30 mg DAILY PO 03/26/25 10:00 03/25/25 21:57 DC Metoprolol Tartrate (Lopressor Tablet) 25 mg BID PO 03/25/25 22:00 03/26/25 10:27 Sodium Chloride (Saline Lock Ns) 10 ml Q8HR IV 03/25/25 22:00 03/26/25 12:54 Docusate Sodium (Colace Capsule) 100 mg BIDPRN PRN PO FOR CONSTIPATION 03/25/25 17:00 Acetaminophen (Tylenol Tablet) 650 mg Q6HP PRN PO PAIN SCALE 1-3 OR TEMP>100.4 03/25/25 17:00 Acetaminophen/ Hydrocodone Bitart ([place] 5/325MG Tab) 1 tab Q4HP PRN PO MODERATE PAIN (4-6 PAIN SCALE) 03/25/25 17:00 03/26/25 11:44 Hydromorphone HCl (Dilaudid Injection) 0.5 mg Q4HP PRN IV SEVERE PAIN (7-10 PAIN SCALE) 03/25/25 17:00 Ondansetron HCl (Zofran) 4 mg Q4HP PRN IV NAUSEA / VOMITING 03/25/25 17:00 Enoxaparin Sodium (Lovenox) 40 mg DAILY SC 03/26/25 10:00 03/26/25 10:27 Nitroglycerin (Ntrostat Sublingual) 0.4 mg Q5MINP PRN SL FOR CHEST PAIN 03/25/25 17:00 Morphine Sulfate 2 mg Q30M PRN IV FOR CHEST PAIN 03/25/25 17:00 Review of Systems Constitutional: No symptom reported Ears, Nose, & Throat: No symptom reported Eyes: No symptom reported Neurological: No symptoms reported Pulmonary/Respiratory: Shortness of breath Cardiovascular: Chest pain Gastrointestinal: No symptom reported Genitourinary: No symptom reported Musculoskeletal: No symptom reported Skin: No symptom reported Psychiatric: No symptom reported Endocrine: No symptom reported Hematologic/Lymphatic: No symptom reported Vital Signs Vital Signs Date Time Temp Pulse Resp B/P (MAP) Pulse Ox O2 Delivery O2 Flow Rate FiO2 03/26/25 12:00 73 126/78 03/26/25 09:00 97.4 16 95 97.4 03/26/25 07:30 Room Air* 0 21 Physical Exam GENERAL: Alert and oriented x 3. No acute distress. EYES: PERRL, EOMI. Anicteric. HENT: Moist mucous membranes. LUNGS: Clear to auscultation bilaterally. CARDIOVASCULAR: Regular rate and rhythm. ABDOMEN: Soft, nontender and nondistended. EXTREMITIES: No edema. NEUROLOGIC: No focal neurological deficits. SKIN: Warm, dry. Labs/Diagnostic Data Labs Test 03/26/25 05:24 03/25/25 14:50 03/25/25 11:43 Range/Units White Blood Count 6.9 # 4.4-10.8 10^3/uL Red Blood Count 5.14 4.5-5.90 10^6/uL Hemoglobin 17.2 13.5-17.5 g/dL Hematocrit 50.1 41.0-53.0 % Mean Corpuscular Volume 97.5 80.0-100.0 fL Mean Corpuscular Hemoglobin 33.4 H 28.0-32.0 pg Mean Corpuscular Hemoglobin Concent 34.2 32.0-36.0 g/dL Red Cell Distribution Width 14.8 H 11.8-14.3 % Platelet Count 155 140-450 10^3/uL Mean Platelet Volume 8.7 6.9-10.8 fL Neutrophils (%) (Auto) 70.1 37.0-80.0 % Lymphocytes (%) (Auto) 14.9 10.0-50.0 % Monocytes (%) (Auto) 11.1 0.0-12.0 % Eosinophils (%) (Auto) 3.4 0.0-7.0 % Basophils (%) (Auto) 0.5 0.0-2.0 % Neutrophils # (Auto) 4.9 1.6-8.6 10 ^3/uL Lymphocytes # (Auto) 1.0 0.4-5.4 10 ^3/uL Monocytes # (Auto) 0.8 0-1.3 10 ^3/uL Eosinophils # (Auto) 0.2 0-0.8 10 ^3/uL Basophils # (Auto) 0 0-0.2 10 ^3/uL Nucleated Red Blood Cells 0.1 % Sodium Level 140 136-145 mmol/L Potassium Level 4.1 3.5-5.1 mmol/L Chloride Level 111 H 98-107 mmol/L Carbon Dioxide Level 20 20-31 mmol/L Anion Gap 9 5-15 Blood Urea Nitrogen 25 H 9-23 mg/dL Creatinine 1.10 0.700-1.30 mg/dL Glomerular Filtration Rate Calc 70 >90 mL/min BUN/Creatinine Ratio 22.7 H 10.0-20.0 Serum Glucose 91 74-106 mg/dL Calcium Level 8.8 8.7-10.4 mg/dL Total Bilirubin 0.7 0.2-1.0 mg/dL Aspartate Amino Transferase (AST) 34 13-40 U/L Alanine Aminotransferase (ALT) 25 7-40 U/L Alkaline Phosphatase 68 46-116 U/L Total Protein 6.5 5.7-8.2 g/dL Albumin 3.8 3.2-4.8 g/dL Troponin I High Sensitivity 9 </=54 ng/L Prothrombin Time 10.6 9.3-11.8 sec Prothrombin Time INR 1.00 0.9-1.15 Activated Partial Thromboplast Time 31.3 24.5-34.5 SEC Assessment Chest pain, rule out coronary ischemia. Severe coronary artery disease status post triple-vessel CABG. Multiple PTCAs X 10 RENAE (on ASA and Plavix). Hypertension. Dyslipidemia. Thyroid disease. BPH. Plan/Recommendation I agree with your ongoing assessment and care of plan. Patient has been seen by Cheyenne Hutton NP on my behalf, her and I discussed the plan with the patient. Transthoracic echocardiogram from 01/25/2025 reveals EF 55%. Chest pain protocol. HEART score: 5 points (moderate score). Continue dual antiplatelet therapy. Lipid-lowering agent. Close Cardiac surveillance. Nuclear stress test. The patient was ordered to undergo a nuclear stress test by ER physician. Awaiting nuclear scan results at this time. Additional plan as per the hospital course. Plan discussed with: Patient NYHA Physical activity limitations: NA Date of Service: Mar 26, 2025 Billing Provider: KM MALIK MD Cardiology Common Codes: [id number] INP/OBS CARE (High) KM MALIK MD Mar 26, 2025 13:37
== END 2025-03-26 17:50 | disposition left against medical advice (07) | DRG 311 ==
LOC: ER 11:40 → OVERFLOW 16:59 → WEST WING 18:39
PROVIDERS: ADMIT Internal Medicine; ATTEND Emergency Medicine
DX: I24.9 Acute ischemic heart disease, unspecified (principal); M54.50 Low back pain, unspecified; E03.9 Hypothyroidism, unspecified; I10 Essential (primary) hypertension; I45.10 Unspecified right bundle-branch block; E78.5 Hyperlipidemia, unspecified; E07.9 Disorder of thyroid, unspecified; N40.0 Benign prostatic hyperplasia without lower urinary tract symptoms; I25.10 Atherosclerotic heart disease of native coronary artery without angina pectoris; Z53.29 Procedure and treatment not carried out because of patient's decision for other reasons; G89.29 Other chronic pain; Z82.49 Family history of ischemic heart disease and other diseases of the circulatory system; Z95.1 Presence of aortocoronary bypass graft; Z95.5 Presence of coronary angioplasty implant and graft; Z91.018 Allergy to other foods; Z91.030 Bee allergy status; Z79.899 Other long term (current) drug therapy; Z79.82 Long term (current) use of aspirin; Z80.42 Family history of malignant neoplasm of prostate
CPT/HCPCS: 36415; 71045; 72100; 80053; 84484; 85025; 85610; 85730; 93005; 93017; 96374; G0378

== ENCOUNTER → 2025-04-02 | Outpatient (CLI) | payer OTHER ==
[2025-04-02 15:53] LABS: LDL Cholesterol 42 mg/dL (< 100)
[2025-04-02 15:54] LABS: Cholesterol 108 mg/dL (< 200); HDL Cholesterol 45 mg/dL (40-59)
[2025-04-02 15:55] LABS: Triglycerides 182 mg/dL (< 150)
== END | disposition home or self-care (01) ==
LOC: LAB 15:01
PROVIDERS: ATTEND Internal Medicine
DX: E78.5 Hyperlipidemia, unspecified (principal)
CPT/HCPCS: 36415; 80061; 84153

== ENCOUNTER 2025-07-05 07:22 | Outpatient (CLI) | payer OTHER ==
[2025-07-05 08:25] LABS: Triglycerides 167 mg/dL (< 150)
[2025-07-05 08:27] LABS: Cholesterol 111 mg/dL (< 200)
[2025-07-05 08:28] LABS: HDL Cholesterol 39 mg/dL (40-59)
== END 2025-07-05 17:00 | disposition home or self-care (01) ==
LOC: LAB 07:22
PROVIDERS: ATTEND Internal Medicine
DX: E78.5 Hyperlipidemia, unspecified (principal); D51.9 Vitamin B12 deficiency anemia, unspecified; Z79.899 Other long term (current) drug therapy
CPT/HCPCS: 36415; 80061; 82306; 82607

== ENCOUNTER 2025-10-01 01:51 | Emergency (ER) | payer OTHER ==
[~2025-10-01] VITALS: Ht 175.3 cm; Wt 86.0 kg
[2025-10-01 02:38] VITALS: BP 135/91; PULSE 75; RESP 18; TEMP 98; O2SAT 98
--- NOTE | 2025-10-01 11:35 | ED.PDOC ---
HPI Comments PT HAD A HEADACHE AND WAS GOING TO TAKE MEDS TOOK BLOOD PRESSUSE AND IT WAS OVER 200. DENIES CHEST PAIN, DIFFICULTY BREATHING, SHORTNESS OF BREATH, NUMBNESS, WEAKNESS, NAUSEA, VOMITING, ABDOMINAL PAIN, OR WORST HEADACHE OF HIS LIFE. Chief Complaint: High Blood Pressure Time Seen by MD: 02:15 Primary Care Provider: JOE Reviewed Notes: Nurses Notes, Medications, Allergies Allergies: Coded Allergies: [place] (Verified Allergy, Severe, Tingling and swelling of mouth, eyes tearing, 11/01/21) Atorvastatin (Verified Allergy, Unknown, 08/15/24) Uncoded Allergies: bee sting (Allergy, Severe, 01/25/25) Home Meds Active Scripts Clopidogrel Bisulfate (CLOPIDOGREL) 75 Mg Tab, 75 MG PO DAILY for 30 Days, #30 TAB Prov:BONG PERRY MD 01/26/25 Tramadol HCl (Tramadol HCl) 50 Mg Tab, 50 MG PO BID, #20 TAB Prov:JUAN JOSÉ METZ 08/15/24 Metoprolol Succinate (Metoprolol Succinate Er) 25 Mg Tab, 0.5 TAB PO DAILY, #30 TAB 0 Refills Prov:BONG PERRY MD 04/03/23 Meclizine HCl (Meclizine 25) 25 Mg Tab, 25 MG PO DAILY for 10 Days, #10 TAB Prov:EDWARDO GILLIAM MD 02/01/22 Ranolazine (Ranexa) 500 Mg Tab, 500 MG PO BID for 30 Days, #60 TAB Prov:BONG PERRY MD 11/02/21 Reported Medications Ezetimibe (Zetia) 10 Mg Tab, 10 MG PO DAILY, TAB 05/23/22 Melatonin (KP MELATONIN) 3 Mg Tab, 10 MG PO QPM, TAB 05/23/22 Cetirizine Hcl (Kls Aller-En) 10 Mg Tab, 10 MG PO DAILY, TAB 05/23/22 Isosorbide Mononitrate (Isosorbide Mononitrate Er) 30 Mg Tab, 30 MG PO DAILY, TAB 05/23/22 Artificial Tear Solution (ARTIFICIAL TEARS) Tears [place], 2 DROP EACHEYE QIDPRN for DRY EYES, ML 05/23/22 Pravastatin Sodium (PRAVACHOL TABLET) 20 Mg Tb, 80 MG PO HS, TAB 05/23/22 Dicyclomine Hcl (Dicyclomine Hcl) 20 Mg Tab, 20 MG PO QID, TAB 05/23/22 Pantoprazole Sodium Sesquihydr (Protonix) 40 Mg Tab, 40 MG PO BID, #30 TAB 05/23/22 Aspirin (Aspir-81) 81 Mg Tab, 81 MG PO DAILY, TAB 05/23/22 Nitroglycerin (NTROSTAT SUBLINGUAL) 0.4 Mg Sl, 0.4 MG SL PRN PRN for FOR CHEST PAIN *MAY REPEAT EVERY 5 MINUTES X 3 TOTAL IF NO RELIEF, INITIATE ANALGESIC THERAPY. NOTIFY PHYSICIAN *Do not crush. 04/09/21 Information Source: Patient Mode of Arrival: Ambulatory Past Medical History PAST MEDICAL HISTORY: CAD, Cancer, High Lipids, HTN, CO, Thyroid Surgical History: CABG, Hernia Repair, PTCA Family History Family History: Reviewed,noncontributory to illness Social History Smoker: Non-Smoker, Quit Greater Than 1 Year Alcohol: Occasionally Drugs: Denies Drug Use, Marijuana Lives In: Home All Other Systems: Reviewed and Negative (SEE HPI) Physical Exam General Appearance: No Apparent Distress, Normal HEENT: Pharynx Normal Neck: Full Range of Motion, Non-Tender Respiratory: Lungs Clear, No Respiratory Distress, Normal Breath Sounds Cardiovascular: No Edema, No JVD, No Murmur, No Gallop, Normal Peripheral Pulses, Regular Rate/Rhythm Breast Exam: Deferred Gastrointestinal: No Organomegaly, Non Tender, No Pulsatile Mass, Normal Bowel Sounds, Soft Genitalia: Deferred Pelvic: Deferred Rectal: Deferred Extremities: Normal range of motion, Non-tender, No pedal edema Musculoskeletal : Apperance: Normal Neurologic: Alert, No Motor Deficits, Normal Affect, Normal Mood, No Sensory Deficits Cerebellar Function: Normal Reflexes: NOT DONE Skin: Dry, Normal Color, Warm Lymphatic: No Adenopathy Was a procedure done? Was a procedure done?: No CP Differential Dx Differential Diagnosis: CO, PVC's, V-Fib Differential Diagnosis: CHF, HTN Essential Differential Diagnosis: Myocardial Infarction X-Ray, Labs, Meds, VS Vital Signs Date Time Temp Pulse Resp B/P (MAP) Pulse Ox O2 Delivery O2 Flow Rate FiO2 10/01/25 02:43 135/91 10/01/25 02:38 98.0 76 18 135/91 (106) 98 98.0 10/01/25 02:38 75 18 98 Room Air* 0 21 10/01/25 01:53 98.4 83 18 166/104 97 98.4 X-Ray, Labs, Meds, VS Comment Patient Normotensive denies chest pain, difficulty breathing, shortness of breath and headache. 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 ER return precautions patient indicates understanding and agrees with discharge plan of care Time of 1ST Reevaluation: 02:45 Reevaluation 1ST: Unchanged Time of 2ND Reevaluation: 02:55 Reevaluation 2ND: Improved Patient Education/Counseling: Diagnosis, Treatment, Pt Unresponsive Family Education/Counseling: No Family Present SEPSIS Sepsis Screen Date sepsis recognized/suspect: Oct 01, 2025 Time Sepsis recognized/suspect: 015 Recent Procedure: No On Antibiotic Therapy: No Respiratory Rate >20: No Heart Rate >90: No Temp<36 C (96.8 F) or >38.3 C: No SBP <90 or MAP <65 mmHG: No New Acute Mental Status Change: No Is the patient on CPAP, BIPAP,: No Vital Signs Date Time Temp Pulse Resp B/P (MAP) Pulse Ox O2 Delivery O2 Flow Rate FiO2 10/01/25 02:43 135/91 10/01/25 02:38 98.0 76 18 135/91 (106) 98 98.0 10/01/25 02:38 75 18 98 Room Air* 0 21 10/01/25 01:53 98.4 83 18 166/104 97 98.4 Departure 1 Departure Time of Disposition: 02:55 Impression: Primary Impression: HTN (hypertension) Qualified Codes: I10 - Essential (primary) hypertension Disposition: 01 HOME / SELF CARE / HOMELESS Condition: Stable Discharged With: Self Critical Care Note Critical Care Time?: No Stability Stability form required: No Heart Score Heart Score: Heart Score Response (Comments) Value History N/A 0 EKG N/A 0 Age 45-64 1 Risk Factors >3 or Hx ASHD 2 Troponin N/A 0 Total 3 RONNA CORNELL Oct 01, 2025 02:32
== END 2025-10-01 02:49 | disposition home or self-care (01) ==
LOC: ER 01:51
DX: I10 Essential (primary) hypertension (principal); I25.10 Atherosclerotic heart disease of native coronary artery without angina pectoris; E78.5 Hyperlipidemia, unspecified; F10.90 Alcohol use, unspecified, uncomplicated; Z79.899 Other long term (current) drug therapy; Z79.82 Long term (current) use of aspirin; Z79.02 Long term (current) use of antithrombotics/antiplatelets; Z98.890 Other specified postprocedural states; Z95.1 Presence of aortocoronary bypass graft; Z91.030 Bee allergy status; Z85.850 Personal history of malignant neoplasm of thyroid; Z87.891 Personal history of nicotine dependence; Y90.9 Presence of alcohol in blood, level not specified